=== PATIENT | male | born 1975 | race Caucasian/White ===

== ENCOUNTER 2018-04-13 22:47 | Emergency (ER) | payer OTHER ==
[~2018-04-13] VITALS: Ht 182.9 cm; Wt 77.1 kg
[~2018-04-13 22:47] MED LIST: AMLO5; ASPI81CH; ATOR10; Bactrim Ds Tab1 EACH PO; FLUO10; GABA100; GLIP5; Keflex500 MG PO; LISI5; METF500; METO50ER
[2018-04-13 23:35] LABS: Source, Urine Clean Catch
[2018-04-13 23:42] LABS: Bilirubin, Urine Neg (Neg); Blood, Urine 2+ (Neg); Glucose Qualitative, Urine 3+ (Neg); Ketones, Urine 1+ (Neg); Leukocyte Esterase, Urine 1+ (Neg); Nitrite, Urine Neg (Neg); Protein, Urine 4+ (Neg); Urobilinogen, Urine 1+ (Normal)
[2018-04-13 23:45] LABS: BASOPHILS ABSOLUTE AUTO 0.02 K/mm3 (0.00-0.23); BASOPHILS PERCENT AUTO 0 % (0-2); EOSINOPHILS PERCENT AUTO 1 % (0-6); Hematocrit 35.1 % (37.0-53.0); Hemoglobin 11.7 g/dL (13.5-17.5); IMMATURE GRAN ABSOLUTE AUTO 0.02 K/mm3 (0.00-0.10); IMMATURE GRAN PERCENT AUTO 0 % (0-1); LYMPHOCYTES PERCENT AUTO 24 % (21-46); MONOCYTES ABSOLUTE AUTO 0.54 K/mm3 (0.16-1.47); MONOCYTES PERCENT AUTO 6 % (4-13); Mean Corpuscular HGB 30.3 pg (26.0-34.0); Mean Corpuscular HGB Conc 33.3 g/dL (31.5-36.5); Mean Corpuscular Volume 91 fL (80-100); NEUTROPHILS ABSOLUTE AUTO 6.54 K/mm3 (1.96-9.15); NEUTROPHILS PERCENT AUTO 69 % (41-73); RDW Standard Deviation 40.1 fL (35.1-46.3); Red Blood Cell Count 3.86 M/mm3 (4.30-5.90); White Blood Cell Count 9.52 K/mm3 (4.00-11.30)
[2018-04-13] MEDS ORDERED: GLIP10 PO (23:47)
[2018-04-13] MEDS ORDERED: METF500C PO (23:47)
[2018-04-13] MEDS ORDERED: ZESTRIL40 MG PO (23:48)
[2018-04-13] MEDS ORDERED: AMLO5 PO (23:48)
[2018-04-13 23:49] LABS: Mean Platelet Volume 10.9 fL (9.1-12.4); Platelet Count 244 K/mm3 (150-400)
[2018-04-13] MEDS ORDERED: GABA600 PO (23:49)
[2018-04-13] MEDS ORDERED: ATOR40TA PO (23:49)
[2018-04-13] MEDS ORDERED: ASPI81CH PO (23:49)
[2018-04-13 23:51] LABS: Appearance, Urine Hazy (Clear); Color, Urine Yellow (P-Yellow)
[2018-04-13 23:52] LABS: Amorphous Light (0-Heavy); Bacteria Few /hpf; Mucus Mod (0-Heavy); Squamous Epithelial Cells Few /hpf (Few)
[2018-04-13] MEDS ORDERED: Prozac20 MG PO (23:54)
[2018-04-13 23:57] LABS: Alanine Aminotransfer (ALT/SGP 15 U/L (12-78); Albumin, Blood 3.1 g/dL (3.4-5.0); Alk Phos 48 U/L (50-136); Anion Gap 3 mmol/L (6-16); Aspartate Aminotrans (AST/SGOT 15 U/L (12-37); Bilirubin, Total 0.2 mg/dL (0.1-1.0); Blood Urea Nitrogen 23 mg/dL (8-24); Bun/Creatinine Ratio 18.7 (12.0-20.0); CO2, Blood 32 mmol/L (21-32); Calcium, Blood 8.1 mg/dL (8.5-10.1); Chloride, Blood 103 mmol/L (98-108); Creatinine, Blood 1.23 mg/dL (0.60-1.20); Globulin, Blood 3.2 g/dL (2.2-4.0); Glomerular Filtration Rate >60 (60-); Glucose, Blood 200 mg/dL (70-99); Potassium, Blood 4.1 mmol/L (3.5-5.5); Sodium, Blood 138 mmol/L (136-145); Total Protein, Blood 6.3 g/dL (6.4-8.2)
== END 2018-04-14 03:00 | disposition home or self-care (01) ==
LOC: ER 22:47
PROVIDERS: Emergency Medicine
DX: K59.00 Constipation, unspecified (principal); Z88.5 Allergy status to narcotic agent; Z79.84 Long term (current) use of oral hypoglycemic drugs; Z79.899 Other long term (current) drug therapy; Z79.82 Long term (current) use of aspirin; E11.40 Type 2 diabetes mellitus with diabetic neuropathy, unspecified; Z86.73 Personal history of transient ischemic attack (TIA), and cerebral infarction without residual deficits; F17.200 Nicotine dependence, unspecified, uncomplicated
CPT/HCPCS: 36415; 74176; 80053; 81001; 85025; 87086; 96374; 99284-25; J1885

== ENCOUNTER 2018-09-27 12:26 | Emergency (ER) | payer OTHER ==
[~2018-09-27] VITALS: Ht 182.9 cm; Wt 77.1 kg
[~2018-09-27 12:26] MED LIST changes: +AMLO5 PO; +ASPI81CH PO; +ATOR40TA PO; +GABA600 PO; +GLIP10 PO; +METF500C PO; +Prozac20 MG PO; +ZESTRIL40 MG PO
[2018-09-27 13:34] LABS: BASOPHILS ABSOLUTE AUTO 0.03 K/mm3 (0.00-0.23); BASOPHILS PERCENT AUTO 0 % (0-2); EOSINOPHILS ABSOLUTE AUTO 0.11 K/mm3 (0.00-0.68); EOSINOPHILS PERCENT AUTO 1 % (0-6); Hematocrit 37.6 % (37.0-53.0); Hemoglobin 12.6 g/dL (13.5-17.5); IMMATURE GRAN ABSOLUTE AUTO 0.02 K/mm3 (0.00-0.10); IMMATURE GRAN PERCENT AUTO 0 % (0-1); LYMPHOCYTES PERCENT AUTO 25 % (21-46); MONOCYTES ABSOLUTE AUTO 0.44 K/mm3 (0.16-1.47); MONOCYTES PERCENT AUTO 6 % (4-13); Mean Corpuscular HGB Conc 33.5 g/dL (31.5-36.5); Mean Corpuscular Volume 90 fL (80-100); Mean Platelet Volume 10.9 fL (9.1-12.4); NEUTROPHILS ABSOLUTE AUTO 5.21 K/mm3 (1.96-9.15); NEUTROPHILS PERCENT AUTO 68 % (41-73); Platelet Count 191 K/mm3 (150-400); RDW Standard Deviation 38.8 fL (35.1-46.3); White Blood Cell Count 7.71 K/mm3 (4.00-11.30)
[2018-09-27 14:08] LABS: Alanine Aminotransfer (ALT/SGP 22 U/L (12-78); Albumin, Blood 3.2 g/dL (3.4-5.0); Albumin/Globulin Ratio 0.9 (0.8-1.8); Alk Phos 57 U/L (50-136); Anion Gap 7 mmol/L (6-16); Aspartate Aminotrans (AST/SGOT 10 U/L (12-37); Bilirubin, Total 0.2 mg/dL (0.1-1.0); Blood Urea Nitrogen 21 mg/dL (8-24); Bun/Creatinine Ratio 16.4 (12.0-20.0); CO2, Blood 26 mmol/L (21-32); Calcium, Blood 9.1 mg/dL (8.5-10.1); Chloride, Blood 106 mmol/L (98-108); Creatinine, Blood 1.28 mg/dL (0.60-1.20); Globulin, Blood 3.7 g/dL (2.2-4.0); Glomerular Filtration Rate >60 (60-); Glucose, Blood 223 mg/dL (70-99); Potassium, Blood 4.9 mmol/L (3.5-5.5); Sodium, Blood 139 mmol/L (136-145); Total Protein, Blood 6.9 g/dL (6.4-8.2)
[2018-09-27] MEDS ORDERED: BUPR75 PO (15:12)
[2018-09-27] MEDS ORDERED: MECL12.5 PO (18:29)
== END 2018-09-27 18:40 | disposition home or self-care (01) ==
LOC: ER 12:26
PROVIDERS: Physician Assistant
DX: I69.998 Other sequelae following unspecified cerebrovascular disease (principal); R42 Dizziness and giddiness; E11.9 Type 2 diabetes mellitus without complications; F17.200 Nicotine dependence, unspecified, uncomplicated; Z79.899 Other long term (current) drug therapy; Z79.82 Long term (current) use of aspirin
CPT/HCPCS: 36415; 70450; 70496; 70498; 80053; 85025; 93005; 93010; 96360-59; 96361; 99284-25; J7030; Q9967

== ENCOUNTER 2018-12-04 21:21 | Emergency (ER) | payer OTHER ==
[~2018-12-04] VITALS: Ht 182.9 cm; Wt 75.8 kg
[~2018-12-04 21:21] MED LIST changes: +BUPR75 PO; +MECL12.5 PO
[2018-12-04 22:02] LABS: BASOPHILS ABSOLUTE AUTO 0.02 K/mm3 (0.00-0.23); BASOPHILS PERCENT AUTO 0 % (0-2); EOSINOPHILS ABSOLUTE AUTO 0.07 K/mm3 (0.00-0.68); EOSINOPHILS PERCENT AUTO 1 % (0-6); Hematocrit 36.3 % (37.0-53.0); Hemoglobin 11.9 g/dL (13.5-17.5); IMMATURE GRAN ABSOLUTE AUTO 0.02 K/mm3 (0.00-0.10); IMMATURE GRAN PERCENT AUTO 0 % (0-1); LYMPHOCYTES ABSOLUTE AUTO 1.45 K/mm3 (0.84-5.20); LYMPHOCYTES PERCENT AUTO 16 % (21-46); MONOCYTES ABSOLUTE AUTO 0.29 K/mm3 (0.16-1.47); MONOCYTES PERCENT AUTO 3 % (4-13); Mean Corpuscular HGB 29.6 pg (26.0-34.0); Mean Corpuscular HGB Conc 32.8 g/dL (31.5-36.5); Mean Corpuscular Volume 90 fL (80-100); Mean Platelet Volume 11.2 fL (9.1-12.4); NEUTROPHILS ABSOLUTE AUTO 7.23 K/mm3 (1.96-9.15); NEUTROPHILS PERCENT AUTO 80 % (41-73); Platelet Count 205 K/mm3 (150-400); RDW Coefficient Variation 12.2 % (11.7-14.2); RDW Standard Deviation 40.2 fL (35.1-46.3); Red Blood Cell Count 4.02 M/mm3 (4.30-5.90); White Blood Cell Count 9.08 K/mm3 (4.00-11.30)
[2018-12-04 22:20] LABS: Alanine Aminotransfer (ALT/SGP 17 U/L (12-78); Alk Phos 53 U/L (50-136); Anion Gap 7 mmol/L (6-16); Aspartate Aminotrans (AST/SGOT 15 U/L (12-37); Bilirubin, Total 0.3 mg/dL (0.1-1.0); Blood Urea Nitrogen 34 mg/dL (8-24); Bun/Creatinine Ratio 25.8 (12.0-20.0); CO2, Blood 29 mmol/L (21-32); Calcium, Blood 8.7 mg/dL (8.5-10.1); Chloride, Blood 103 mmol/L (98-108); Creatinine, Blood 1.32 mg/dL (0.60-1.20); Globulin, Blood 3.1 g/dL (2.2-4.0); Glomerular Filtration Rate >60 (60-); Glucose, Blood 238 mg/dL (70-99); Potassium, Blood 4.5 mmol/L (3.5-5.5); Sodium, Blood 139 mmol/L (136-145); Total Protein, Blood 6.1 g/dL (6.4-8.2)
== END 2018-12-04 23:46 | disposition home or self-care (01) ==
LOC: ER 21:21
PROVIDERS: Emergency Medicine
DX: I10 Essential (primary) hypertension (principal); E11.9 Type 2 diabetes mellitus without complications; F17.200 Nicotine dependence, unspecified, uncomplicated; Z88.5 Allergy status to narcotic agent; Z79.899 Other long term (current) drug therapy
CPT/HCPCS: 80053; 82947; 85025; 93005; 93010; 96361; 96374; 96375; 99284-25; J0780; J1100; J1200; J1885; J7030

== ENCOUNTER 2020-04-27 11:06 | Emergency (ER) | payer MEDICARE, OTHER ==
[~2020-04-27] VITALS: Ht 182.9 cm; Wt 90.7 kg
[2020-04-27 11:47] LABS: BASOPHILS ABSOLUTE AUTO 0.07 K/mm3 (0.00-0.23); BASOPHILS PERCENT AUTO 1 % (0-2); EOSINOPHILS ABSOLUTE AUTO 0.19 K/mm3 (0.00-0.68); EOSINOPHILS PERCENT AUTO 2 % (0-6); Hematocrit 37.4 % (37.0-53.0); Hemoglobin 12.2 g/dL (13.5-17.5); IMMATURE GRAN ABSOLUTE AUTO 0.04 K/mm3 (0.00-0.10); IMMATURE GRAN PERCENT AUTO 0 % (0-1); LYMPHOCYTES ABSOLUTE AUTO 2.12 K/mm3 (0.84-5.20); LYMPHOCYTES PERCENT AUTO 22 % (21-46); MONOCYTES ABSOLUTE AUTO 0.47 K/mm3 (0.16-1.47); MONOCYTES PERCENT AUTO 5 % (4-13); Mean Corpuscular HGB Conc 32.6 g/dL (31.5-36.5); Mean Corpuscular Volume 89 fL (80-100); Mean Platelet Volume 11.3 fL (9.1-12.4); NEUTROPHILS ABSOLUTE AUTO 6.88 K/mm3 (1.96-9.15); NEUTROPHILS PERCENT AUTO 71 % (41-73); Platelet Count 275 K/mm3 (150-400); RDW Coefficient Variation 12.1 % (11.7-14.2); RDW Standard Deviation 39.4 fL (35.1-46.3); White Blood Cell Count 9.77 K/mm3 (4.00-11.30)
[2020-04-27 12:02] LABS: Albumin, Blood 2.9 g/dL (3.4-5.0); Albumin/Globulin Ratio 0.9 (0.8-1.8); Bilirubin, Total 0.3 mg/dL (0.1-1.0); Bun/Creatinine Ratio 13.2 (12.0-20.0); Calcium, Blood 8.9 mg/dL (8.5-10.1); Creatinine, Blood 1.59 mg/dL (0.60-1.20); Globulin, Blood 3.4 g/dL (2.2-4.0); International Normalized Ratio 0.95; Potassium, Blood 4.4 mmol/L (3.5-5.5); Prothrombin Time Results 10.2 Sec (9.7-11.5); Total Protein, Blood 6.3 g/dL (6.4-8.2)
[2020-04-27] MEDS ORDERED: BASAGLAR SC (12:19)
[2020-04-27] MEDS ORDERED: DULO60 PO (12:22)
== END 2020-04-27 13:44 | disposition home or self-care (01) ==
LOC: ER 11:06
PROVIDERS: Physician Assistant
DX: R20.2 Paresthesia of skin (principal); R20.0 Anesthesia of skin; I10 Essential (primary) hypertension; E11.40 Type 2 diabetes mellitus with diabetic neuropathy, unspecified; F17.200 Nicotine dependence, unspecified, uncomplicated; Z86.73 Personal history of transient ischemic attack (TIA), and cerebral infarction without residual deficits; Z88.5 Allergy status to narcotic agent; Z79.84 Long term (current) use of oral hypoglycemic drugs; Z79.82 Long term (current) use of aspirin; Z79.899 Other long term (current) drug therapy
CPT/HCPCS: 36415; 70450; 80053; 82947; 85025; 85610; 93005; 93010; 99284-25

== ENCOUNTER 2020-11-25 12:42 | Inpatient (IN) | payer MEDICARE, OTHER ==
[~2020-11-25] VITALS: Ht 182.9 cm; Wt 69.7 kg
[~2020-11-25 12:42] MED LIST changes: -ATOR20 PO; -Amlodipine Besy10 MG PO; -BASAGLAR K100 UNIT/8 SC; -BISA10S PR; -CLON.3 PO; -COLACE100 MG PO; -DULOXETINE HCL60 M1 PO; -Gabapentin600 MG PO; -Glucotrol10 MG PO; -LIPITOR80 MG PO; -METF500 PO; -METFORMIN HCL1000 M6 PO; -METO25ER PO; -NICO21TP TOP; -ONDA4 PO; -PLAVIX75 MG PO; -PROMETHAZINE12.5 M1 PO; -PROZAC40 MG PO; -Prozac40 MG PO; -SENN187 PO; -TAMSULOSIN HCL0.4 M1 PO; -THERA-D2000 UNIT PO
[2020-11-25 13:39] LABS: BASOPHILS ABSOLUTE AUTO 0.06 K/mm3 (0.00-0.23); BASOPHILS PERCENT AUTO 1 % (0-2); EOSINOPHILS ABSOLUTE AUTO 0.05 K/mm3 (0.00-0.68); EOSINOPHILS PERCENT AUTO 0 % (0-6); Hematocrit 34.6 % (37.0-53.0); Hemoglobin 11.3 g/dL (13.5-17.5); IMMATURE GRAN ABSOLUTE AUTO 0.11 K/mm3 (0.00-0.10); IMMATURE GRAN PERCENT AUTO 1 % (0-1); LYMPHOCYTES ABSOLUTE AUTO 1.58 K/mm3 (0.84-5.20); LYMPHOCYTES PERCENT AUTO 13 % (21-46); MONOCYTES ABSOLUTE AUTO 0.58 K/mm3 (0.16-1.47); MONOCYTES PERCENT AUTO 5 % (4-13); Mean Corpuscular HGB 30.2 pg (26.0-34.0); Mean Corpuscular HGB Conc 32.7 g/dL (31.5-36.5); Mean Corpuscular Volume 93 fL (80-100); Mean Platelet Volume 11.2 fL (9.1-12.4); NEUTROPHILS ABSOLUTE AUTO 10.18 K/mm3 (1.96-9.15); NEUTROPHILS PERCENT AUTO 81 % (41-73); Platelet Count 187 K/mm3 (150-400); RDW Coefficient Variation 12.4 % (11.7-14.2); Red Blood Cell Count 3.74 M/mm3 (4.30-5.90); White Blood Cell Count 12.56 K/mm3 (4.00-11.30)
[2020-11-25 13:53] LABS: Albumin, Blood 3.3 g/dL (3.4-5.0); Albumin/Globulin Ratio 0.9 (0.8-1.8); Bilirubin, Total 0.4 mg/dL (0.1-1.0); Bun/Creatinine Ratio 12.5 (12.0-20.0); Creatinine, Blood 5.28 mg/dL (0.60-1.20); Globulin, Blood 3.6 g/dL (2.2-4.0); Potassium, Blood 5.6 mmol/L (3.5-5.5); Total Protein, Blood 6.9 g/dL (6.4-8.2)
[2020-11-25] MEDS ORDERED: PROZAC40 MG PO (13:57)
[2020-11-25] MEDS ORDERED: BASAGLAR K100 UNIT/8 SC (13:57)
[2020-11-25] MEDS ORDERED: Amlodipine Besy10 MG PO (13:57)
[2020-11-25] MEDS ORDERED: Glucotrol10 MG PO (13:58)
[2020-11-25] MEDS ORDERED: Gabapentin600 MG PO (13:58)
[2020-11-25] MEDS ORDERED: ZESTRIL40 MG PO (13:58)
[2020-11-25] MEDS ORDERED: ATOR20 PO (13:58)
[2020-11-25] MEDS ORDERED: METF500 PO (13:58)
[2020-11-25] MEDS ORDERED: METO25ER PO (13:59)
[2020-11-25] MEDS ORDERED: ONDA4 PO (13:59)
[2020-11-25 14:19] LABS: Magnesium, Blood 1.6 mg/dL (1.6-2.4); Phosphorus, Blood 5.5 mg/dL (2.5-4.9)
[2020-11-25 14:59] LABS: Source, Urine Catheter
[2020-11-25 15:01] LABS: Appearance, Urine Hazy (Clear); Bilirubin, Urine Neg (Neg); Blood, Urine 3+ (Neg); Color, Urine Yellow (P-Yellow); Glucose Qualitative, Urine 3+ (Neg); Ketones, Urine 1+ (Neg); Leukocyte Esterase, Urine 3+ (Neg); Nitrite, Urine Neg (Neg); Protein, Urine 3+ (Neg); Specific Gravity, Urine 1.015 (1.003-1.022); Urobilinogen, Urine NORM (Normal)
[2020-11-25 15:16] LABS: Bacteria Many /hpf; Red Blood Cells, Urine 0-2 /hpf (0-2); Squamous Epithelial Cells Not Seen /hpf (Few); White Blood Cells, Urine TNTC /hpf (0-5)
[2020-11-25] MEDS ORDERED: DULOXETINE HCL60 M1 PO (16:12)
[2020-11-25] MEDS ORDERED: LIPITOR80 MG PO (16:13)
[2020-11-25] MEDS ORDERED: TAMSULOSIN HCL0.4 M1 PO (16:13)
[2020-11-25] MEDS ORDERED: METFORMIN HCL1000 M6 PO (16:13)
[2020-11-25] MEDS ORDERED: PLAVIX75 MG PO (16:17)
[2020-11-25] MEDS ORDERED: THERA-D2000 UNIT PO (16:20)
[2020-11-25] MEDS ORDERED: CLON.3 PO (16:27)
[2020-11-25] MEDS ORDERED: PROMETHAZINE12.5 M1 PO (16:28)
--- NOTE | 2020-11-25 19:27 | NUR ---
SHIFT SUMMARY, ADMISSION PT WAS ADMITTED TO PCU AT APPROXIMATELY 1810 AND ARRIVED VIA STRETCHER. PT WAS ABLE TO COMPLETE HISTORY AND SCREENING ALONG WITH HIS /CAREGIVER RACHELL. PT DENIES ABD PAIN AT THIS TIME DESPITE NOT HAVING A BM FOR SEVERAL WEEKS. PT WAS VISITED BY DR. GREEN WHO REQUESTED A STAT CPK AND RENAL PANEL AND A PHONE CALL WITH THE RESULTS. PT IS INCONTINENT AND HAS A SIGNIFICANT HISTORY OF STROKES, DM2, HTN AND NEUROPATHY. PT IS ON RA AND IS ALERT AND ORIENTED. PT RESTING AT THIS TIME. HISTORY AND SCREENING COMPLETE; ADMISSION ASSESSMENT IS TO BE COMPLETED BY BOOGIE MIGUEL, ON NOC SHIFT
[2020-11-25 19:42] LABS: Anion Gap 9 mmol/L (6-16); Blood Urea Nitrogen 63 mg/dL (8-24); Bun/Creatinine Ratio 12.2 (12.0-20.0); CO2, Blood 18 mmol/L (21-32); Calcium, Blood 8.2 mg/dL (8.5-10.1); Chloride, Blood 112 mmol/L (98-108); Creatinine, Blood 5.16 mg/dL (0.60-1.20); Glomerular Filtration Rate 13 (60-); Glucose, Blood 128 mg/dL (70-99); Phosphorus, Blood 5.1 mg/dL (2.5-4.9); Potassium, Blood 4.9 mmol/L (3.5-5.5); Sodium, Blood 139 mmol/L (136-145)
[2020-11-25 19:43] LABS: CPK Creatine Kinase 34 U/L (39-308)
--- NOTE | 2020-11-25 20:27 | NUR ---
2024 DR GREEN CALLED ORDERED AND INFORMED OF LAB RESULTS. DR GREEN ORDERED TO START PT ON IV FLUIDS.
--- NOTE | 2020-11-26 04:33 | NUR ---
SUMMARY PT C/O OF PENIS DISCOMFORT. PT HAD BEEN STRIGHT CATHED IN ER. PT HAD NOTED BLOOD DURING ATTENDS CHANGE. PROVIDER GUME CALLED AND ORDERED OT FENTANYL AND UROJET. PT PAIN RESOLVED. PT ALSO NOTED PER TELE TO HAVE A RATE IN 130'S. PROVIDER GUME CALLED AND SHE ORDERED IV LOPRESSOR FOR RATE CONTROL. PT RATE CURRENTLY IN LOW 100'S, WCTM. PT C/O OF CONSTIPATION AND MOM WAS GIVEN. PT EVENTUALLY HAD SOME NOTED BM'S. DR ARZATE CALLED AND A FLEET ENEMA WAS ORDERED IF PT'S CONSTIPATION GETS WORSE. PT CURRENTLY RESTING. PT HAS NOT SLEPT MUCH DURING SHIFT. CALL LIGHT IN REACH.
[2020-11-26 04:37] LABS: Bun/Creatinine Ratio 12.5 (12.0-20.0); Calcium, Blood 8.4 mg/dL (8.5-10.1); Creatinine, Blood 5.03 mg/dL (0.60-1.20); Potassium, Blood 5.2 mmol/L (3.5-5.5)
--- NOTE | 2020-11-26 06:42 | NUR ---
0640 PT PASSING STOOL EASILY THIS AM. DENIES ANY PAIN/ DISCOMFORT.
[2020-11-26 11:56] LABS: Source, Urine Catheter
[2020-11-26 12:10] LABS: Appearance, Urine Hazy (Clear); Bilirubin, Urine Neg (Neg); Blood, Urine 5+ (Neg); Color, Urine Yellow (P-Yellow); Glucose Qualitative, Urine 3+ (Neg); Ketones, Urine 2+ (Neg); Leukocyte Esterase, Urine 3+ (Neg); Nitrite, Urine Neg (Neg); Protein, Urine 3+ (Neg); Urobilinogen, Urine NORM (Normal); pH, Urine 6.5 (5.0-8.0)
[2020-11-26 12:22] LABS: White Blood Cells, Urine TNTC /hpf (0-5)
[2020-11-26 12:25] LABS: Red Blood Cells, Urine 25-50 /hpf (0-2); Squamous Epithelial Cells Not Seen /hpf (Few)
[2020-11-26 12:26] LABS: Bacteria Many /hpf
--- NOTE | 2020-11-26 17:43 | NUR ---
PT ARRIVED TO THE ROOM AT 1735. PT IS ALERT AND WAS ASSISTED TO SIT UP FOR DINNER. PT DECLINED NEED FOR ASSISTANCE WITH EATING. PT REPORTS HE DRINKS THIN LIQUIDS AT HOME. WILL CONTINUE TO MONITOR.
--- NOTE | 2020-11-26 19:44 | NUR ---
SHIFT SUMMARY/SWALLOWING CONCERNS PT ARRIVED TO THE ROOM AT APPROXIMATELY 1730 FROM PCU. PT WAS ASSISTED TO SIT UP FOR DINNER BUT APPEARED TO CHOKE WHILE EATING REPORTED BY INOCENTE BEGUM. TRAY WAS TAKEN AND DR. FERRIS WAS NOTIFIED. PT EDUCATED THAT HE SHOULD BE GETTING NECTAR THICK LIQUIDS AND MECHANICAL SOFT DIET. PT REPORTED THAT HE DOES NOT FOLLOW THOSE RECOMMENDATIONS AT HOME. PT WAS EDUCATED ABOUT THE RISKS OF ASPIRATION AND POSSIBLE AIRWAY OBSTRUCTION IF HE CONTINUES TO EAT REGULAR TEXTURE AND DRINK THIN LIQUIDS. PT AND HIS S/O REPORTED UNDERSTANDING THE RISKS. THEY AGREED TO A BITE SIZE DIET, THIN LIQUIDS AND PILLS WITH APPLESAUCE. PLAN TO PLACE PALLIATIVE CARE CONSULT FOR SUPPORT AND EDUCATION. NO OTHER CHANGES TO REPORT SINCE PT ARRIVED TO THE ROOM FROM PCU. REPORT GIVEN TO LARRY HYMAN.
--- NOTE | 2020-11-27 04:02 | NUR ---
SHIFT SUMMARY PT ALERT AND ORIENTED. VSS. TELE ON SINUS @ 61HR PER NOVEMBER, MANAGER MAC. PT SLEPT T/O THE NIGHT. HE REFUSED TO TAKE GABAPENTIN STATING THAT HE HAD STOPPED TAKEN THAT MEDICATION BEFORE. I WILL ADDRESS THIS TO AM NURSE TO REPORT TO . PT ALSO REFUSED TO FOLLOW THE RECOMENDED DIET ORDER. THE CAREGIVER/ S/O STATED THAT HE TAKES BITE SIZE AND EATS SLOW AT BASELINE. PT ALSO REPORTS L ARM SWELLING R/T TO IV INFILTRATION. IV ON LEFT AC WAS DC'D. WILL PLACE A NEW IV. URINE HAD SEDIMENTS AT THE BEGINNING OF SHIFT, CATHETER OUTPUT AT 1100ML, WITH CLOUDY YELLOW URINE. ENC Q2 TURNING. PT IS ABLE TO TURN HIMSELF IN BED. HE HAD 1 BM LAST NIGHT AND REFUSE TO TAKE STOOL SOFTNER. CALL LIGHT WITHIN REACH. WILL PROVIDE REPORT TO AM NURSE.
[2020-11-27 04:54] LABS: BASOPHILS ABSOLUTE AUTO 0.05 K/mm3 (0.00-0.23); BASOPHILS PERCENT AUTO 1 % (0-2); EOSINOPHILS ABSOLUTE AUTO 0.15 K/mm3 (0.00-0.68); EOSINOPHILS PERCENT AUTO 2 % (0-6); Hematocrit 30.1 % (37.0-53.0); Hemoglobin 9.7 g/dL (13.5-17.5); IMMATURE GRAN ABSOLUTE AUTO 0.08 K/mm3 (0.00-0.10); IMMATURE GRAN PERCENT AUTO 1 % (0-1); LYMPHOCYTES ABSOLUTE AUTO 2.11 K/mm3 (0.84-5.20); LYMPHOCYTES PERCENT AUTO 23 % (21-46); MONOCYTES ABSOLUTE AUTO 0.69 K/mm3 (0.16-1.47); MONOCYTES PERCENT AUTO 8 % (4-13); Mean Corpuscular HGB 29.3 pg (26.0-34.0); Mean Corpuscular HGB Conc 32.2 g/dL (31.5-36.5); Mean Corpuscular Volume 91 fL (80-100); Mean Platelet Volume 10.8 fL (9.1-12.4); NEUTROPHILS ABSOLUTE AUTO 6.07 K/mm3 (1.96-9.15); NEUTROPHILS PERCENT AUTO 66 % (41-73); Platelet Count 195 K/mm3 (150-400); RDW Coefficient Variation 12.4 % (11.7-14.2); RDW Standard Deviation 41.1 fL (35.1-46.3); Red Blood Cell Count 3.31 M/mm3 (4.30-5.90); White Blood Cell Count 9.15 K/mm3 (4.00-11.30)
[2020-11-27 05:34] LABS: Albumin, Blood 2.8 g/dL (3.4-5.0); Anion Gap 4 mmol/L (6-16); Blood Urea Nitrogen 43 mg/dL (8-24); Bun/Creatinine Ratio 10.4 (12.0-20.0); CO2, Blood 25 mmol/L (21-32); Calcium, Blood 8.6 mg/dL (8.5-10.1); Chloride, Blood 111 mmol/L (98-108); Creatinine, Blood 4.12 mg/dL (0.60-1.20); Glomerular Filtration Rate 17 (60-); Glucose, Blood 210 mg/dL (70-99); Phosphorus, Blood 3.9 mg/dL (2.5-4.9); Potassium, Blood 4.6 mmol/L (3.5-5.5); Sodium, Blood 140 mmol/L (136-145)
--- NOTE | 2020-11-27 18:04 | NUR ---
SHIFT SUMMARY PT A&OX4/SLURRED SPEECH/SLOW TO RESPOND, VSS, TELE SINUS & 76 BPM. CBG MED SS/COVERAGE REQUIRED. FAJARDO PATENT & DRAINING YELLOW URINE, STAT LOCK ON/OFF FLOOR; BMS +. IVF @ 125 MLS/HR, ABX ORDERED PER EMAR. REPOSITIONS SELF/TRANSFERS SELF TO OWN WC. TROY PO; MEDS WITH APPLESAUCE. AT BEDSIDE. WILL REPORT TO ONCOMING NOC RN.
--- NOTE | 2020-11-28 06:35 | NUR ---
SHIFT SUMMARY:SEPSIS,ACUTE ON CHRONIC RENAL FAILURE DM2, TELE,POST CVA PT ON BEDREST A&OX3, CASA IS GARBLED SLOW LOGICAL, DENIES PAIN AT THIS TIME,ABLE TO REPOSITSON SELF, SLEPT INTERMITTENTLY T/O NIGHT, FAJARDO IN PLACE DRAINING WELL, APPEARS TO BE RESTING CALL LIGHT WITHIN REACH.
[2020-11-28 07:26] LABS: BASOPHILS ABSOLUTE AUTO 0.06 K/mm3 (0.00-0.23); BASOPHILS PERCENT AUTO 1 % (0-2); EOSINOPHILS ABSOLUTE AUTO 0.17 K/mm3 (0.00-0.68); EOSINOPHILS PERCENT AUTO 2 % (0-6); Hematocrit 32.2 % (37.0-53.0); Hemoglobin 10.4 g/dL (13.5-17.5); IMMATURE GRAN ABSOLUTE AUTO 0.13 K/mm3 (0.00-0.10); IMMATURE GRAN PERCENT AUTO 2 % (0-1); LYMPHOCYTES ABSOLUTE AUTO 2.04 K/mm3 (0.84-5.20); LYMPHOCYTES PERCENT AUTO 26 % (21-46); MONOCYTES ABSOLUTE AUTO 0.48 K/mm3 (0.16-1.47); MONOCYTES PERCENT AUTO 6 % (4-13); Mean Corpuscular HGB 29.2 pg (26.0-34.0); Mean Corpuscular HGB Conc 32.3 g/dL (31.5-36.5); Mean Corpuscular Volume 90 fL (80-100); Mean Platelet Volume 10.8 fL (9.1-12.4); NEUTROPHILS ABSOLUTE AUTO 4.96 K/mm3 (1.96-9.15); NEUTROPHILS PERCENT AUTO 63 % (41-73); Platelet Count 218 K/mm3 (150-400); RDW Coefficient Variation 12.3 % (11.7-14.2); RDW Standard Deviation 40.8 fL (35.1-46.3); Red Blood Cell Count 3.56 M/mm3 (4.30-5.90); White Blood Cell Count 7.84 K/mm3 (4.00-11.30)
[2020-11-28 07:55] LABS: Albumin, Blood 2.9 g/dL (3.4-5.0); Anion Gap 6 mmol/L (6-16); Blood Urea Nitrogen 27 mg/dL (8-24); Bun/Creatinine Ratio 10.3 (12.0-20.0); CO2, Blood 22 mmol/L (21-32); Calcium, Blood 8.1 mg/dL (8.5-10.1); Chloride, Blood 112 mmol/L (98-108); Creatinine, Blood 2.63 mg/dL (0.60-1.20); Glomerular Filtration Rate 28 (60-); Glucose, Blood 204 mg/dL (70-99); Phosphorus, Blood 2.9 mg/dL (2.5-4.9); Potassium, Blood 4.4 mmol/L (3.5-5.5); Sodium, Blood 140 mmol/L (136-145)
[2020-11-28] MEDS ORDERED: BISA10S PR (11:17)
[2020-11-28] MEDS ORDERED: COLACE100 MG PO (11:18)
[2020-11-28] MEDS ORDERED: NICO21TP TOP (11:19)
[2020-11-28] MEDS ORDERED: SENN187 PO (11:19)
[2020-11-28] MEDS ORDERED: Prozac40 MG PO (11:19)
--- NOTE | 2020-11-28 14:40 | NUR ---
DISCHARGE SUMMARY PT A&OX4, VSS, TROY PO, DENIES PAIN. LEFT FLOOR WITH S.O. TO GO HOME WITH ALL PERSONAL POSSESSIONS INCLUDING DC PACKET AND SCRIPT FOR LAB DRAW. DC INSTRUCTIONS PROVIDED. PT AND S.O. REP UNDERSTANDING HOW TO EMPTY FAJARDO BAG AND MEASURE TO TAKE INFO TO DR GREEN AT FOLLOW UP, HOME HEALTH WILL FOLLOW PT, S.O. RECEIVED INFORMATION ABOUT OBTAINING A NEW PCP FROM [facility] PRIOR TO DC, PT ENCOURAGED TO INTAKE 8 GLASSES OF WATER DAILY. IV DC'D.
== END 2020-11-28 12:46 | disposition home or self-care (01) | DRG 871 ==
LOC: ER 12:42 → SURS 16:06 → PCU 16:06 → SURS 11-26 17:37
PROVIDERS: Emergency Medicine; Internal Medicine; Physician Assistant; ADMIT Internal Medicine
DX: A41.9 Sepsis, unspecified organism (principal); N17.0 Acute kidney failure with tubular necrosis; I12.9 Hypertensive chronic kidney disease with stage 1 through stage 4 chronic kidney disease, or unspecified chronic kidney disease; E87.5 Hyperkalemia; E11.22 Type 2 diabetes mellitus with diabetic chronic kidney disease; Z86.73 Personal history of transient ischemic attack (TIA), and cerebral infarction without residual deficits; K59.00 Constipation, unspecified; R33.9 Retention of urine, unspecified; R47.81 Slurred speech; E11.40 Type 2 diabetes mellitus with diabetic neuropathy, unspecified; Z98.890 Other specified postprocedural states; Z88.5 Allergy status to narcotic agent; Z79.899 Other long term (current) drug therapy; Z79.84 Long term (current) use of oral hypoglycemic drugs; N18.30 Chronic kidney disease, stage 3 unspecified; F17.210 Nicotine dependence, cigarettes, uncomplicated
CPT/HCPCS: 36415; 51701; 51702; 71045; 74176; 76770; 80048; 80053; 80069; 81001; 82550; 82947; 83605; 83690; 83735; 84100; 85025; 87040; 87086; 93005; 93010; 96365-59; 97161; 97530; 99285-25; A9270; A9270-GY; J0360; J0696; J1644; J1815; J2405; J3010; J7030

== ENCOUNTER → 2020-11-25 | Outpatient (CLI) | payer MEDICARE, OTHER ==
[~2020-11-25] MED LIST changes: +ATOR20 PO; +Amlodipine Besy10 MG PO; +BASAGLAR K100 UNIT/8 SC; +BASAGLAR SC; +BISA10S PR; +CLON.3 PO; +COLACE100 MG PO; +DULO60 PO; +DULOXETINE HCL60 M1 PO; +Gabapentin600 MG PO; +Glucotrol10 MG PO; +LIPITOR80 MG PO; +MECL25 PO; +METF500 PO; +METFORMIN HCL1000 M6 PO; +METO25ER PO; +NICO21TP TOP; +ONDA4 PO; +ONDA4ODT MM; +PLAVIX75 MG PO; +PROM25 PO; +PROMETHAZINE12.5 M1 PO; +PROZAC40 MG PO; +Prozac40 MG PO; +SENN187 PO; +TAMSULOSIN HCL0.4 M1 PO; +THERA-D2000 UNIT PO
[2020-11-25 11:49] LABS: BASOPHILS ABSOLUTE AUTO 0.08 K/mm3 (0.00-0.23); BASOPHILS PERCENT AUTO 1 % (0-2); EOSINOPHILS ABSOLUTE AUTO 0.06 K/mm3 (0.00-0.68); EOSINOPHILS PERCENT AUTO 1 % (0-6); Hematocrit 40.8 % (37.0-53.0); IMMATURE GRAN PERCENT AUTO 1 % (0-1); LYMPHOCYTES ABSOLUTE AUTO 1.79 K/mm3 (0.84-5.20); LYMPHOCYTES PERCENT AUTO 14 % (21-46); MONOCYTES ABSOLUTE AUTO 0.56 K/mm3 (0.16-1.47); MONOCYTES PERCENT AUTO 4 % (4-13); Mean Corpuscular HGB 29.2 pg (26.0-34.0); Mean Corpuscular HGB Conc 31.9 g/dL (31.5-36.5); Mean Corpuscular Volume 92 fL (80-100); Mean Platelet Volume 10.7 fL (9.1-12.4); NEUTROPHILS ABSOLUTE AUTO 10.49 K/mm3 (1.96-9.15); NEUTROPHILS PERCENT AUTO 80 % (41-73); Platelet Count 176 K/mm3 (150-400); RDW Coefficient Variation 12.7 % (11.7-14.2); RDW Standard Deviation 41.9 fL (35.1-46.3); Red Blood Cell Count 4.45 M/mm3 (4.30-5.90); White Blood Cell Count 13.08 K/mm3 (4.00-11.30)
[2020-11-25 12:11] LABS: Alanine Aminotransfer (ALT/SGP 24 U/L (12-78); Albumin/Globulin Ratio 0.9 (0.8-1.8); Alk Phos 89 U/L (40-126); Anion Gap 18 mmol/L (6-16); Aspartate Aminotrans (AST/SGOT 15 U/L (12-37); Bilirubin, Total 0.4 mg/dL (0.1-1.0); Blood Urea Nitrogen 73 mg/dL (8-24); Bun/Creatinine Ratio 12.8 (12.0-20.0); CO2, Blood 19 mmol/L (21-32); Calcium, Blood 10.2 mg/dL (8.5-10.1); Chloride, Blood 98 mmol/L (98-108); Globulin, Blood 4.4 g/dL (2.2-4.0); Glomerular Filtration Rate 11 (60-); Glucose, Blood 204 mg/dL (70-99); Sodium, Blood 135 mmol/L (136-145); Thyroid Stimulating Hormone 1.181 uIU/mL (0.360-4.800); Total Protein, Blood 8.4 g/dL (6.4-8.2)
[2020-11-25 12:15] LABS: Troponin I <0.017 ng/mL (0.000-0.040)
[2020-11-25 12:16] LABS: Potassium, Blood 6.1 mmol/L (3.5-5.5)
== END | disposition home or self-care (01) ==
LOC: LAB SHORT 11:42
PROVIDERS: Physician Assistant
DX: R00.1 Bradycardia, unspecified (principal); R11.2 Nausea with vomiting, unspecified; R53.83 Other fatigue; R10.9 Unspecified abdominal pain
CPT/HCPCS: 80053; 83690; 84443; 84484; 85025

== ENCOUNTER → 2020-12-01 | Outpatient (CLI) | payer MEDICARE, OTHER | END | disposition home or self-care (01) | LOC: LAB HH 15:46 → LAB SHORT 15:46 | DX: N17.9 Acute kidney failure, unspecified (principal); E11.22 Type 2 diabetes mellitus with diabetic chronic kidney disease; I12.9 Hypertensive chronic kidney disease with stage 1 through stage 4 chronic kidney disease, or unspecified chronic kidney disease; N18.9 Chronic kidney disease, unspecified | CPT/HCPCS: 80069; 83970 ==

== ENCOUNTER → 2020-12-25 | Outpatient (CLI) | payer MEDICARE, OTHER ==
[~2020-12-25] MED LIST changes: +ATOR20 PO; +Amlodipine Besy10 MG PO; +BASAGLAR K100 UNIT/8 SC; +BISA10S PR; +CLON.3 PO; +COLACE100 MG PO; +DULOXETINE HCL60 M1 PO; +Gabapentin600 MG PO; +Glucotrol10 MG PO; +LIPITOR80 MG PO; +METF500 PO; +METFORMIN HCL1000 M6 PO; +METO25ER PO; +NICO21TP TOP; +ONDA4 PO; +PLAVIX75 MG PO; +PROMETHAZINE12.5 M1 PO; +PROZAC40 MG PO; +Prozac40 MG PO; +SENN187 PO; +SULFAMETHOXAZO1 EAC1 PO; +TAMSULOSIN HCL0.4 M1 PO; +THERA-D2000 UNIT PO
[2020-12-25 13:05] LABS: Source, Urine Clean Catch
[2020-12-25 13:15] LABS: Bacteria Many /hpf; Squamous Epithelial Cells Rare /hpf (Few)
[2020-12-25 13:16] LABS: White Blood Cells, Urine TNTC /hpf (0-5)
[2020-12-25 13:21] LABS: Albumin, Blood 3.2 g/dL (3.4-5.0); Albumin/Globulin Ratio 0.9 (0.8-1.8); Bilirubin, Total 0.2 mg/dL (0.1-1.0); Calcium, Blood 8.7 mg/dL (8.5-10.1); Creatinine, Blood 1.95 mg/dL (0.60-1.20); Globulin, Blood 3.6 g/dL (2.2-4.0); Total Protein, Blood 6.8 g/dL (6.4-8.2)
== END | disposition home or self-care (01) ==
LOC: LAB SHORT 13:03 → LAB EV 13:03
PROVIDERS: Physician Assistant Medical
DX: E86.0 Dehydration (principal); R31.9 Hematuria, unspecified
CPT/HCPCS: 80053; 81015

== ENCOUNTER → 2020-12-27 | Outpatient (CLI) | payer MEDICARE, OTHER ==
[2020-12-30 12:10] LABS: M-SPIKE, % Comment: % (Not Observed); PROTEIN,TOTAL,URINE 284.5 mg/dL (Not Estab.)
== END | disposition home or self-care (01) ==
LOC: LAB 09:48 → LAB SHORT 09:48
PROVIDERS: Internal Medicine
DX: E88.09 Other disorders of plasma-protein metabolism, not elsewhere classified (principal)
CPT/HCPCS: 84156; 84166

== ENCOUNTER 2021-01-21 23:11 | Observation (INO) | payer MEDICARE, OTHER ==
[~2021-01-21] VITALS: Ht 167.6 cm; Wt 74.3 kg
[~2021-01-21 23:11] MED LIST changes: -SULFAMETHOXAZO1 EAC1 PO
[2021-01-21 23:34] LABS: BASOPHILS ABSOLUTE AUTO 0.06 K/mm3 (0.00-0.23); BASOPHILS PERCENT AUTO 1 % (0-2); EOSINOPHILS ABSOLUTE AUTO 0.15 K/mm3 (0.00-0.68); EOSINOPHILS PERCENT AUTO 2 % (0-6); Hematocrit 38.2 % (37.0-53.0); Hemoglobin 12.4 g/dL (13.5-17.5); IMMATURE GRAN ABSOLUTE AUTO 0.04 K/mm3 (0.00-0.10); IMMATURE GRAN PERCENT AUTO 0 % (0-1); LYMPHOCYTES ABSOLUTE AUTO 2.44 K/mm3 (0.84-5.20); LYMPHOCYTES PERCENT AUTO 26 % (21-46); MONOCYTES ABSOLUTE AUTO 0.66 K/mm3 (0.16-1.47); MONOCYTES PERCENT AUTO 7 % (4-13); Mean Corpuscular HGB Conc 32.5 g/dL (31.5-36.5); Mean Corpuscular Volume 90 fL (80-100); Mean Platelet Volume 11.3 fL (9.1-12.4); NEUTROPHILS ABSOLUTE AUTO 6.06 K/mm3 (1.96-9.15); NEUTROPHILS PERCENT AUTO 65 % (41-73); Platelet Count 250 K/mm3 (150-400); RDW Coefficient Variation 12.6 % (11.7-14.2); RDW Standard Deviation 41.2 fL (35.1-46.3); Red Blood Cell Count 4.27 M/mm3 (4.30-5.90); White Blood Cell Count 9.41 K/mm3 (4.00-11.30)
[2021-01-22] LABS: Alanine Aminotransfer (ALT/SGP 30 U/L (12-78); Albumin, Blood 3.7 g/dL (3.4-5.0); Albumin/Globulin Ratio 0.9 (0.8-1.8); Alk Phos 86 U/L (50-136); Anion Gap 6 mmol/L (6-16); Aspartate Aminotrans (AST/SGOT 24 U/L (12-37); Bilirubin, Total 0.4 mg/dL (0.1-1.0); Blood Urea Nitrogen 27 mg/dL (8-24); Bun/Creatinine Ratio 18.1 (12.0-20.0); CO2, Blood 28 mmol/L (21-32); Calcium, Blood 9.5 mg/dL (8.5-10.1); Chloride, Blood 99 mmol/L (98-108); Creatinine, Blood 1.49 mg/dL (0.60-1.20); Globulin, Blood 4.3 g/dL (2.2-4.0); Glomerular Filtration Rate 54 (60-); Glucose, Blood 365 mg/dL (70-99); Potassium, Blood 4.2 mmol/L (3.5-5.5); Sodium, Blood 133 mmol/L (136-145)
[2021-01-22 00:01] LABS: Troponin I <0.015 ng/mL (0.000-0.040)
[2021-01-22 04:26] LABS: BASOPHILS ABSOLUTE AUTO 0.04 K/mm3 (0.00-0.23); BASOPHILS PERCENT AUTO 1 % (0-2); EOSINOPHILS PERCENT AUTO 1 % (0-6); Hematocrit 32.1 % (37.0-53.0); Hemoglobin 10.7 g/dL (13.5-17.5); IMMATURE GRAN ABSOLUTE AUTO 0.02 K/mm3 (0.00-0.10); IMMATURE GRAN PERCENT AUTO 0 % (0-1); LYMPHOCYTES PERCENT AUTO 23 % (21-46); MONOCYTES ABSOLUTE AUTO 0.58 K/mm3 (0.16-1.47); MONOCYTES PERCENT AUTO 7 % (4-13); Mean Corpuscular HGB 29.3 pg (26.0-34.0); Mean Corpuscular HGB Conc 33.3 g/dL (31.5-36.5); Mean Corpuscular Volume 88 fL (80-100); NEUTROPHILS ABSOLUTE AUTO 5.88 K/mm3 (1.96-9.15); NEUTROPHILS PERCENT AUTO 68 % (41-73); RDW Coefficient Variation 12.5 % (11.7-14.2); RDW Standard Deviation 39.8 fL (35.1-46.3); Red Blood Cell Count 3.65 M/mm3 (4.30-5.90); White Blood Cell Count 8.62 K/mm3 (4.00-11.30)
[2021-01-22 04:30] LABS: Platelet Count 412 K/mm3 (150-400)
[2021-01-22 04:50] LABS: Albumin, Blood 3.2 g/dL (3.4-5.0); Albumin/Globulin Ratio 0.9 (0.8-1.8); Bilirubin, Total 0.3 mg/dL (0.1-1.0); Bun/Creatinine Ratio 17.3 (12.0-20.0); Calcium, Blood 8.5 mg/dL (8.5-10.1); Creatinine, Blood 1.39 mg/dL (0.60-1.20); Globulin, Blood 3.4 g/dL (2.2-4.0); Potassium, Blood 4.2 mmol/L (3.5-5.5); Total Protein, Blood 6.6 g/dL (6.4-8.2)
--- NOTE | 2021-01-22 06:16 | NUR ---
ADMIT NOTE AND SHIFT SUMMARY PT ARRIVED TO PCU FROM ED VIA ED STRETCHER AT APPROX 0300. THE PT WAS SLID BY 5 STAFF FROM ED STRETCHER TO PCU BED. PT A&OX4. R SIDE DEFICIT/WEAKNESS. SP02>92% ON RA. TELEMETRY READS SR, HR 80'S. PT REFUSED SUPPOSITORY ASPIRIN. CALL PLACED TO MD ARZATE. MD ARZATE W/ ORDERS FOR PO ASPIRIN. PT STATES HE TAKES HIS MEDS IN APPLESAUCE. PT ARRIVED TO FLOOR WITH FAJARDO CATHETER FROM HOME, STATES HAS BEEN IN "MORE THAN A MONTH". FAJARDO CATHETER REPLACED AND URINE SENT TO LAB. PT ABLE TO REPOSITION SELF IN BED. PT A GOOD HISTORIAN, BUT STATES HIS FIANCE/CAREGIVER HAS HIS MED LIST. PT STATES HE WILL HAVE MED LIST BROUGHT IN DURING VISITING HOURS TO COMPLETE MED REC. PT SLEPT AFTER ADMISSION. CALL LIGHT IN REACH. WILL GIVE REPORT TO ONCOMING NURSE.
[2021-01-22 06:18] LABS: Source, Urine Clean Catch
[2021-01-22 06:21] LABS: Bilirubin, Urine Neg (Neg); Blood, Urine 3+ (Neg); Glucose Qualitative, Urine 4+ (Neg); Ketones, Urine Neg (Neg); Leukocyte Esterase, Urine 3+ (Neg); Nitrite, Urine Pos (Neg); Protein, Urine 4+ (Neg); Specific Gravity, Urine 1.015 (1.003-1.022); Urobilinogen, Urine NORM (Normal)
[2021-01-22 07:10] LABS: Color, Urine Pale Yellow (P-Yellow)
[2021-01-22 07:11] LABS: Appearance, Urine Hazy (Clear)
[2021-01-22 07:17] LABS: White Blood Cells, Urine TNTC /hpf (0-5)
[2021-01-22 07:21] LABS: Squamous Epithelial Cells Rare /hpf (Few)
[2021-01-22 07:22] LABS: Bacteria Mod /hpf
[2021-01-22] MEDS ORDERED: ASPI81CH PO (13:08)
[2021-01-22] MEDS ORDERED: SULFAMETHOXAZO1 EAC1 PO (13:10)
--- NOTE | 2021-01-22 14:03 | NUR ---
UPDATE; AGREES WITH CAR SEAT MAKER TO WEAR BIPAP. BIPAP STARTED BY RT. WEARS FOR APPROX 5 MINS THEN BEGINS TO YELL AND SCREAM THAT CAN'T BREATH. PULLS MASK OF AND COUGHS UP SMALL AMOUNT OF CLEAR THIN SPUTUM. CAR SEAT MAKER NOTFIED BY MEMORIAL MARKER DESIGNER. MEMORIAL MARKER DESIGNER AND ROLLED HAM LACER TO ROOM FOR VBG. CONTINUES TO YELL AND CUSS AND MEMORIAL MARKER DESIGNER THREATENING TO EMMANUEL HER AFTER MULTIPIPLE ATTEMPTS BY MEMORIAL MARKER DESIGNER TO DESCALATE SITUTATION. MEMORIAL MARKER DESIGNER LEAVES ROOM PT ON 3L 02 VIA NC. SITUTATION WHITNESSED BY THIS RN.
--- NOTE | 2021-01-22 14:46 | NUR ---
VERBAL AND WRITTEN INSTRUCTIONS GIVEN TO PT AND SO WITH CLEAR UNDERSTANDING. RX'S FAXED TO PHARMACY. DC'D WITH BELONGINGS IN PT'S PERSONAL WHEEL CHAIR IN NO DISTRESS.
== END 2021-01-22 13:34 | disposition home or self-care (01) ==
LOC: ER 23:11 → PCU 23:12 → ER 01-22 01:38 → PCU 01-22 01:38
PROVIDERS: Emergency Medicine; ADMIT Internal Medicine
DX: G45.9 Transient cerebral ischemic attack, unspecified (principal); R29.810 Facial weakness; N39.0 Urinary tract infection, site not specified; E11.65 Type 2 diabetes mellitus with hyperglycemia; N40.0 Benign prostatic hyperplasia without lower urinary tract symptoms; I12.9 Hypertensive chronic kidney disease with stage 1 through stage 4 chronic kidney disease, or unspecified chronic kidney disease; N18.30 Chronic kidney disease, stage 3 unspecified; E11.40 Type 2 diabetes mellitus with diabetic neuropathy, unspecified; I65.02 Occlusion and stenosis of left vertebral artery; E11.22 Type 2 diabetes mellitus with diabetic chronic kidney disease; F17.210 Nicotine dependence, cigarettes, uncomplicated; R00.0 Tachycardia, unspecified; F32.9 Major depressive disorder, single episode, unspecified; Z88.5 Allergy status to narcotic agent; Z79.4 Long term (current) use of insulin; Z86.73 Personal history of transient ischemic attack (TIA), and cerebral infarction without residual deficits
CPT/HCPCS: 36415; 70450; 70496; 70498; 80053; 81001; 82947; 84484; 85025; 87077; 87086; 87147; 87186; 92610; 93005; 93010; 96361; 96365; 96366; 96372; 96374; 96375; 97110; 97162; 97530; 99285-25; A9270; G0378; J0696; J1650; J2405; J2550; J7030; Q9967

== ENCOUNTER 2021-07-12 21:27 | Inpatient (IN) | payer OTHER ==
[~2021-07-12] VITALS: Ht 170.2 cm; Wt 57.9 kg
[~2021-07-12 21:27] MED LIST changes: +SULFAMETHOXAZO1 EAC1 PO
[2021-07-12 22:32] LABS: BASOPHILS ABSOLUTE AUTO 0.06 K/mm3 (0.00-0.23); BASOPHILS PERCENT AUTO 1 % (0-2); EOSINOPHILS PERCENT AUTO 1 % (0-6); Hematocrit 35.5 % (37.0-53.0); Hemoglobin 11.4 g/dL (13.5-17.5); IMMATURE GRAN ABSOLUTE AUTO 0.06 K/mm3 (0.00-0.10); IMMATURE GRAN PERCENT AUTO 1 % (0-1); LYMPHOCYTES ABSOLUTE AUTO 2.17 K/mm3 (0.84-5.20); LYMPHOCYTES PERCENT AUTO 21 % (21-46); MONOCYTES ABSOLUTE AUTO 0.58 K/mm3 (0.16-1.47); MONOCYTES PERCENT AUTO 6 % (4-13); Mean Corpuscular HGB 28.8 pg (26.0-34.0); Mean Corpuscular HGB Conc 32.1 g/dL (31.5-36.5); Mean Corpuscular Volume 90 fL (80-100); Mean Platelet Volume 11.2 fL (9.1-12.4); NEUTROPHILS ABSOLUTE AUTO 7.49 K/mm3 (1.96-9.15); NEUTROPHILS PERCENT AUTO 72 % (41-73); Platelet Count 166 K/mm3 (150-400); RDW Coefficient Variation 12.9 % (11.7-14.2); RDW Standard Deviation 42.5 fL (35.1-46.3); Red Blood Cell Count 3.96 M/mm3 (4.30-5.90); White Blood Cell Count 10.46 K/mm3 (4.00-11.30)
[2021-07-12 22:51] LABS: Alanine Aminotransfer (ALT/SGP 24 U/L (12-78); Albumin, Blood 3.2 g/dL (3.4-5.0); Albumin/Globulin Ratio 0.9 (0.8-1.8); Alk Phos 52 U/L (50-136); Anion Gap 8 mmol/L (6-16); Aspartate Aminotrans (AST/SGOT 24 U/L (12-37); Bilirubin, Total 0.2 mg/dL (0.1-1.0); Blood Urea Nitrogen 32 mg/dL (8-24); Bun/Creatinine Ratio 19.9 (12.0-20.0); CO2, Blood 26 mmol/L (21-32); Chloride, Blood 106 mmol/L (98-108); Creatinine, Blood 1.61 mg/dL (0.60-1.20); Globulin, Blood 3.5 g/dL (2.2-4.0); Glomerular Filtration Rate 46 (60-); Glucose, Blood 156 mg/dL (70-99); Potassium, Blood 4.7 mmol/L (3.5-5.5); Sodium, Blood 140 mmol/L (136-145); Total Protein, Blood 6.7 g/dL (6.4-8.2); Troponin I <0.015 ng/mL (0.000-0.040)
[2021-07-12 23:38] LABS: Influenza A, PCR NEGATIVE (NEGATIVE); Influenza B, PCR NEGATIVE (NEGATIVE); Resp Syncytial Virus, PCR NEGATIVE (NEGATIVE); SARS-Cov-2 (COVID-19) PCR, MMC NEGATIVE (NEGATIVE)
[2021-07-13 00:26] LABS: Source, Urine Voided
[2021-07-13 00:28] LABS: Bilirubin, Urine Neg (Neg); Blood, Urine 4+ (Neg); Glucose Qualitative, Urine Neg (Neg); Ketones, Urine Neg (Neg); Leukocyte Esterase, Urine 2+ (Neg); Nitrite, Urine Neg (Neg); Protein, Urine 3+ (Neg); Specific Gravity, Urine 1.015 (1.003-1.022); Urobilinogen, Urine NORM (Normal)
[2021-07-13 00:39] LABS: Appearance, Urine Hazy (Clear); Color, Urine Yellow (P-Yellow)
[2021-07-13 00:40] LABS: Amorphous Light (0-Heavy); Bacteria Few /hpf; Mucus Light (0-Heavy); Squamous Epithelial Cells Rare /hpf (Few); White Blood Cells, Urine 50-100 /hpf (0-5)
[2021-07-13 04:13] LABS: Adenovirus F 40/41 Not Detected (NOT DETECT); Astrovirus Not Detected (NOT DETECT); Campylobacter Sp Not Detected (NOT DETECT); Cryptosporidium Detected (NOT DETECT); Cyclospora Cayetanensis Not Detected (NOT DETECT); E. Coli O157 Not Detected (NOT DETECT); Entamoeba Histolytica Not Detected (NOT DETECT); Enteroaggregative E. coli-EAEC Not Detected (NOT DETECT); Enteropathogenic E. coli-EPEC Not Detected (NOT DETECT); Enterotoxigenic E. coli-ETEC Not Detected (NOT DETECT); Giardia Lamblia Not Detected (NOT DETECT); Norovirus GI/GII Not Detected (NOT DETECT); Plesiomonas Shigelloides Not Detected (NOT DETECT); Rotavirus A Not Detected (NOT DETECT); Salmonella Sp Not Detected (NOT DETECT); Sapovirus Not Detected (NOT DETECT); Shiga Toxin-prod E. coli-STEC Not Detected (NOT DETECT); Shigella/Enteroin E. coli-EIEC Not Detected (NOT DETECT); Vibrio Cholerae Not Detected (NOT DETECT); Vibrio Sp Not Detected (NOT DETECT); Yersinia Enterocolitica Not Detected (NOT DETECT)
[2021-07-13 08:00] LABS: BASOPHILS ABSOLUTE AUTO 0.04 K/mm3 (0.00-0.23); BASOPHILS PERCENT AUTO 1 % (0-2); EOSINOPHILS ABSOLUTE AUTO 0.13 K/mm3 (0.00-0.68); EOSINOPHILS PERCENT AUTO 2 % (0-6); Hematocrit 30.5 % (37.0-53.0); Hemoglobin 9.9 g/dL (13.5-17.5); IMMATURE GRAN ABSOLUTE AUTO 0.03 K/mm3 (0.00-0.10); IMMATURE GRAN PERCENT AUTO 0 % (0-1); LYMPHOCYTES ABSOLUTE AUTO 2.34 K/mm3 (0.84-5.20); LYMPHOCYTES PERCENT AUTO 26 % (21-46); MONOCYTES ABSOLUTE AUTO 0.56 K/mm3 (0.16-1.47); MONOCYTES PERCENT AUTO 6 % (4-13); Mean Corpuscular HGB 28.9 pg (26.0-34.0); Mean Corpuscular HGB Conc 32.5 g/dL (31.5-36.5); Mean Corpuscular Volume 89 fL (80-100); Mean Platelet Volume 10.8 fL (9.1-12.4); NEUTROPHILS ABSOLUTE AUTO 5.76 K/mm3 (1.96-9.15); NEUTROPHILS PERCENT AUTO 65 % (41-73); Platelet Count 242 K/mm3 (150-400); RDW Coefficient Variation 13.1 % (11.7-14.2); RDW Standard Deviation 42.9 fL (35.1-46.3); Red Blood Cell Count 3.42 M/mm3 (4.30-5.90); White Blood Cell Count 8.86 K/mm3 (4.00-11.30)
[2021-07-13 08:15] LABS: Bun/Creatinine Ratio 19.3 (12.0-20.0); Calcium, Blood 8.1 mg/dL (8.5-10.1); Creatinine, Blood 1.35 mg/dL (0.60-1.20); Potassium, Blood 4.3 mmol/L (3.5-5.5)
--- NOTE | 2021-07-13 17:29 | NUR ---
SHIFT SUMMARY PATIENT IS ALERT AND ORIENTED X2. PATIENT HAS BEEN PLEASENT AND COOPERATIVE WITH CARE. PATIENT IS AN ADMIT FROM THE ED AROUND 1500. PATIENT HAS HAD A HISTORY OF CVAS WITH LINGERING DEFICITS AT BASELINE. PATIENT IS MINIMALLY VERBAL. PATIENT HAS HAD HIGH BLOOD PRESSURES SINCE ADMIT AND HAS GOTTEN ORDERS FOR A STAT ONE TIME BP MEDICATION PER EMAR. HOME MEDICATIONS HAVE BEEN INPUTTED INTO EMAR. VITAL SIGNS REVIEWED. CALL LIGHT IN PLACE. WILL MONITOR UNTIL SHIFT CHANGE.
[2021-07-14 06:06] LABS: BASOPHILS ABSOLUTE AUTO 0.05 K/mm3 (0.00-0.23); BASOPHILS PERCENT AUTO 1 % (0-2); EOSINOPHILS ABSOLUTE AUTO 0.11 K/mm3 (0.00-0.68); EOSINOPHILS PERCENT AUTO 2 % (0-6); Hematocrit 34.1 % (37.0-53.0); Hemoglobin 11.2 g/dL (13.5-17.5); IMMATURE GRAN ABSOLUTE AUTO 0.02 K/mm3 (0.00-0.10); IMMATURE GRAN PERCENT AUTO 0 % (0-1); LYMPHOCYTES ABSOLUTE AUTO 1.85 K/mm3 (0.84-5.20); LYMPHOCYTES PERCENT AUTO 25 % (21-46); MONOCYTES PERCENT AUTO 7 % (4-13); Mean Corpuscular HGB 29.3 pg (26.0-34.0); Mean Corpuscular HGB Conc 32.8 g/dL (31.5-36.5); Mean Corpuscular Volume 89 fL (80-100); NEUTROPHILS ABSOLUTE AUTO 4.78 K/mm3 (1.96-9.15); NEUTROPHILS PERCENT AUTO 65 % (41-73); Platelet Count 208 K/mm3 (150-400); RDW Coefficient Variation 12.6 % (11.7-14.2); RDW Standard Deviation 41.4 fL (35.1-46.3); Red Blood Cell Count 3.82 M/mm3 (4.30-5.90); White Blood Cell Count 7.31 K/mm3 (4.00-11.30)
--- NOTE | 2021-07-14 06:22 | NUR ---
SHIFT SUMMARY PT IS A 46 Y/O MALE, ADMITTED FOR ACUTE GASTROENTERITIS AND UTI. HE IS A&O X 3, WITH A HX OF MULTIPLE CVAS AND DIFFICULTIES SPEAKING. PT IS ABLE TO ANSWER YES OR NO QUESTIONS AND MAKE HIS NEEDS KNOWN. BEDREST. CHRONIC FAJARDO IN PLACE, PATENT AND DRAINING. NO C/O ACUTE PAIN, NAUSEA OR SOB. TELE SHOWED NSR IN THE 80S. VITAL SIGNS STABLE. LAB REPORTED PT HAD ONE POSITIVE BLOOD CULTURE, GRAM + COCCI IN CLUSTERS. PER PHARMACY, CURRENT ABX REGIMEN WAS MOST LIKELY NOT SUFFICIENT. HOSPITALIST DR CASTANOTRATE INFORMED, AND PT STARTED ON IV VANCOMYCIN. NO ACUTE CHANGES IN PT CONDITION NOTED DURING THE NIGHT. WILL CONTINUE TO MONITOR AND TREAT PER EMAR UNTIL HAND OFF TO DAY SHIFT RN.
[2021-07-14 07:04] LABS: Albumin, Blood 2.9 g/dL (3.4-5.0); Bilirubin, Total 0.3 mg/dL (0.1-1.0); Bun/Creatinine Ratio 11.9 (12.0-20.0); Calcium, Blood 8.9 mg/dL (8.5-10.1); Creatinine, Blood 1.43 mg/dL (0.60-1.20); Globulin, Blood 2.9 g/dL (2.2-4.0); Potassium, Blood 4.5 mmol/L (3.5-5.5); Total Protein, Blood 5.8 g/dL (6.4-8.2)
[2021-07-15 05:53] LABS: BASOPHILS ABSOLUTE AUTO 0.04 K/mm3 (0.00-0.23); BASOPHILS PERCENT AUTO 1 % (0-2); EOSINOPHILS PERCENT AUTO 1 % (0-6); Hematocrit 34.4 % (37.0-53.0); Hemoglobin 11.2 g/dL (13.5-17.5); IMMATURE GRAN ABSOLUTE AUTO 0.03 K/mm3 (0.00-0.10); IMMATURE GRAN PERCENT AUTO 0 % (0-1); LYMPHOCYTES ABSOLUTE AUTO 2.14 K/mm3 (0.84-5.20); LYMPHOCYTES PERCENT AUTO 29 % (21-46); MONOCYTES ABSOLUTE AUTO 0.47 K/mm3 (0.16-1.47); MONOCYTES PERCENT AUTO 6 % (4-13); Mean Corpuscular HGB 28.9 pg (26.0-34.0); Mean Corpuscular HGB Conc 32.6 g/dL (31.5-36.5); Mean Corpuscular Volume 89 fL (80-100); Mean Platelet Volume 10.8 fL (9.1-12.4); NEUTROPHILS ABSOLUTE AUTO 4.55 K/mm3 (1.96-9.15); NEUTROPHILS PERCENT AUTO 62 % (41-73); Platelet Count 248 K/mm3 (150-400); RDW Coefficient Variation 12.8 % (11.7-14.2); RDW Standard Deviation 41.5 fL (35.1-46.3); Red Blood Cell Count 3.88 M/mm3 (4.30-5.90); White Blood Cell Count 7.33 K/mm3 (4.00-11.30)
--- NOTE | 2021-07-15 06:19 | NUR ---
SHIFT SUMMARY PT IS A 46 Y/O FEMALE, ADMITTED FOR ACUTE GASTROENTERITIS AND UTI. HE IS A&O X 2, WITH A HX OF MULTIPLE CVAS. BEDREST. NO C/O NAUSEA OR SOB. PT DID REPORT MILD PAIN. HOPITALIST DR JADE NOTIFIED, AND PRN TYLENOL ORDERED. VITAL SIGNS STABLE. CHRONIC FAJARDO IN PLACE, PATENT AND DRAINING. NO OTHER ACUTE CHANGES IN PT CONDITION NOTED DURING THE NIGHT. WILL CONTINUE TO MONITOR AND TREAT PER EMAR UNTIL HAND OFF TO DAY SHIFT RN.
[2021-07-15 06:28] LABS: Albumin, Blood 3.1 g/dL (3.4-5.0); Albumin/Globulin Ratio 1.1 (0.8-1.8); Bilirubin, Total 0.4 mg/dL (0.1-1.0); Bun/Creatinine Ratio 9.4 (12.0-20.0); Creatinine, Blood 1.39 mg/dL (0.60-1.20); Globulin, Blood 2.9 g/dL (2.2-4.0); Potassium, Blood 3.9 mmol/L (3.5-5.5)
[2021-07-15] MEDS ORDERED: BACTRIM DS TAB1 EAC6 PO (13:35)
--- NOTE | 2021-07-15 14:56 | NUR ---
DISCHARGE PATIENT DISCHARGED HOME. DISCHARGE PAPERWORK REVIEWED WITH PATIENT. PATIENT HAD NO QUESTIONS. ALL BELONGINGS SENT DOWN WITH PATIENTS CAREGIVER. PRESCRIPTIONS FAXED TO PATIENTS PHARMACY OF CHOICE. PATIENT TRANSPORTED VIA WHEELCHAIR TO PERSONAL VEHICLE.
--- NOTE | 2021-07-18 11:29 | NUR ---
Per Dr. Richter discharge appropriate for 07/15/21. Patient does not oppose discharge. [facility] transported patient to their residence. No barriers to discharge at this time. Patient contacted on 07/18/21 to schedule discharge follow up with PCP ([facility] not available).
== END 2021-07-15 14:02 | disposition home health service (06) | DRG 372 ==
LOC: ER 21:27 → ERHOLD 07-13 02:31 → MEDS 07-13 02:31
PROVIDERS: Emergency Medicine; Family Medicine; ADMIT Family Medicine
DX: A07.2 Cryptosporidiosis (principal); T83.511A Infection and inflammatory reaction due to indwelling urethral catheter, initial encounter; I69.351 Hemiplegia and hemiparesis following cerebral infarction affecting right dominant side; E87.2 Acidosis; I69.392 Facial weakness following cerebral infarction; Z20.822 Contact with and (suspected) exposure to COVID-19; E11.40 Type 2 diabetes mellitus with diabetic neuropathy, unspecified; I10 Essential (primary) hypertension; E86.0 Dehydration; F17.210 Nicotine dependence, cigarettes, uncomplicated; Z88.6 Allergy status to analgesic agent; Z91.048 Other nonmedicinal substance allergy status; Z79.2 Long term (current) use of antibiotics; Z79.4 Long term (current) use of insulin; Z79.02 Long term (current) use of antithrombotics/antiplatelets; Z79.899 Other long term (current) drug therapy; Y84.6 Urinary catheterization as the cause of abnormal reaction of the patient, or of later complication, without mention of misadventure at the time of the procedure
CPT/HCPCS: 0097U; 0241U; 36415; 51702; 70450; 80048; 80053; 81001; 82947; 83605; 83690; 84145; 84484; 85025; 87040; 87077; 87086; 87186; 93005; 93010; 96365; 96375; 99285-25; A9270; J0696; J1644; J1815; J2405; J3370; J7030; J7050

== ENCOUNTER 2021-11-07 22:15 | Emergency (ER) | payer OTHER ==
[~2021-11-07] VITALS: Ht 177.8 cm; Wt 65.8 kg
[~2021-11-07 22:15] MED LIST changes: +BACTRIM DS TAB1 EAC6 PO
[2021-11-07 22:39] LABS: Source, Urine Clean Catch
[2021-11-07 22:41] LABS: BASOPHILS ABSOLUTE AUTO 0.08 K/mm3 (0.00-0.23); BASOPHILS PERCENT AUTO 1 % (0-2); Bilirubin, Urine Neg (Neg); Blood, Urine 3+ (Neg); EOSINOPHILS PERCENT AUTO 1 % (0-6); Glucose Qualitative, Urine Neg (Neg); Hemoglobin 11.9 g/dL (13.5-17.5); IMMATURE GRAN ABSOLUTE AUTO 0.05 K/mm3 (0.00-0.10); IMMATURE GRAN PERCENT AUTO 0 % (0-1); Ketones, Urine 1+ (Neg); LYMPHOCYTES ABSOLUTE AUTO 2.47 K/mm3 (0.84-5.20); LYMPHOCYTES PERCENT AUTO 20 % (21-46); Leukocyte Esterase, Urine 3+ (Neg); MONOCYTES ABSOLUTE AUTO 0.75 K/mm3 (0.16-1.47); MONOCYTES PERCENT AUTO 6 % (4-13); Mean Corpuscular HGB Conc 32.2 g/dL (31.5-36.5); Mean Corpuscular Volume 93 fL (80-100); Mean Platelet Volume 10.7 fL (9.1-12.4); NEUTROPHILS ABSOLUTE AUTO 8.76 K/mm3 (1.96-9.15); NEUTROPHILS PERCENT AUTO 72 % (41-73); Nitrite, Urine Pos (Neg); Platelet Count 341 K/mm3 (150-400); Protein, Urine 4+ (Neg); RDW Coefficient Variation 13.7 % (11.7-14.2); RDW Standard Deviation 47.2 fL (35.1-46.3); Red Blood Cell Count 3.97 M/mm3 (4.30-5.90); Urobilinogen, Urine NORM (Normal); White Blood Cell Count 12.21 K/mm3 (4.00-11.30)
[2021-11-07 23:00] LABS: Alanine Aminotransfer (ALT/SGP 33 U/L (12-78); Albumin, Blood 3.8 g/dL (3.4-5.0); Alk Phos 57 U/L (50-136); Anion Gap 10 mmol/L (6-16); Aspartate Aminotrans (AST/SGOT 21 U/L (12-37); Bilirubin, Total 0.3 mg/dL (0.1-1.0); Blood Urea Nitrogen 25 mg/dL (8-24); Bun/Creatinine Ratio 22.5 (12.0-20.0); CO2, Blood 28 mmol/L (21-32); Calcium, Blood 10.3 mg/dL (8.5-10.1); Chloride, Blood 104 mmol/L (98-108); Creatinine, Blood 1.11 mg/dL (0.60-1.20); Globulin, Blood 3.8 g/dL (2.2-4.0); Glomerular Filtration Rate >60 (60-); Glucose, Blood 127 mg/dL (70-99); Potassium, Blood 4.6 mmol/L (3.5-5.5); Sodium, Blood 142 mmol/L (136-145); Total Protein, Blood 7.6 g/dL (6.4-8.2)
[2021-11-07 23:10] LABS: Appearance, Urine Cloudy (Clear); Color, Urine Yellow (P-Yellow)
[2021-11-07 23:12] LABS: Bacteria Many /hpf; Squamous Epithelial Cells Few /hpf (Few); White Blood Cells, Urine 50-100 /hpf (0-5)
[2021-11-07 23:13] LABS: Hyaline Casts 0-2 /lpf (0-2)
[2021-11-07] MEDS ORDERED: METFORMIN HCL500 M3 PO (23:24)
[2021-11-07] MEDS ORDERED: Nitrofurantoin100 M1 PO (23:27)
[2021-11-07] MEDS ORDERED: LISI20 (23:27)
[2021-11-07] MEDS ORDERED: PREGABALIN25 MG PO (23:28)
[2021-11-07] MEDS ORDERED: NOVOLOG100 UNIT/3 SQ (23:28)
[2021-11-08] MEDS ORDERED: Cipro500 MG PO (01:07)
[2021-11-08] MEDS ORDERED: Zofran4 MG PO (01:07)
== END 2021-11-08 02:10 | disposition home or self-care (01) ==
LOC: ER 22:15
PROVIDERS: Emergency Medicine
DX: A41.9 Sepsis, unspecified organism (principal); N39.0 Urinary tract infection, site not specified; I12.9 Hypertensive chronic kidney disease with stage 1 through stage 4 chronic kidney disease, or unspecified chronic kidney disease; E11.22 Type 2 diabetes mellitus with diabetic chronic kidney disease; N18.9 Chronic kidney disease, unspecified; E11.40 Type 2 diabetes mellitus with diabetic neuropathy, unspecified; Z86.73 Personal history of transient ischemic attack (TIA), and cerebral infarction without residual deficits; Z79.4 Long term (current) use of insulin; Z79.84 Long term (current) use of oral hypoglycemic drugs; Z79.899 Other long term (current) drug therapy; Z88.5 Allergy status to narcotic agent; Z91.048 Other nonmedicinal substance allergy status
CPT/HCPCS: 36415; 80053; 81001; 83605; 83690; 85025; 87077; 87086; 87186; 96365; 96375; 99284-25; J0744; J7030

== ENCOUNTER 2022-05-09 16:33 | Inpatient (IN) | payer OTHER ==
[~2022-05-09] VITALS: Ht 182.9 cm; Wt 81.0 kg
[~2022-05-09 16:33] MED LIST changes: +CATAPRES0.1 MG PO; -CLON.3 PO; +Cipro500 MG PO; -DULOXETINE HCL60 M1 PO; +LISI20 PO; +METFORMIN HCL500 M3 PO; +NOVOLOG100 UNIT/3 SQ; +Nitrofurantoin100 M1 PO; +PREGABALIN25 MG PO; +Zofran4 MG PO
[2022-05-09] MEDS ORDERED: PROMETHAZINE PO (17:03)
[2022-05-09 17:11] LABS: BASOPHILS ABSOLUTE AUTO 0.04 K/mm3 (0.00-0.23); BASOPHILS PERCENT AUTO 0 % (0-2); EOSINOPHILS ABSOLUTE AUTO 0.02 K/mm3 (0.00-0.68); EOSINOPHILS PERCENT AUTO 0 % (0-6); Hematocrit 29.7 % (37.0-53.0); Hemoglobin 9.3 g/dL (13.5-17.5); IMMATURE GRAN ABSOLUTE AUTO 0.16 K/mm3 (0.00-0.10); IMMATURE GRAN PERCENT AUTO 1 % (0-1); LYMPHOCYTES ABSOLUTE AUTO 1.73 K/mm3 (0.84-5.20); LYMPHOCYTES PERCENT AUTO 13 % (21-46); MONOCYTES ABSOLUTE AUTO 0.68 K/mm3 (0.16-1.47); MONOCYTES PERCENT AUTO 5 % (4-13); Mean Corpuscular HGB 28.9 pg (26.0-34.0); Mean Corpuscular HGB Conc 31.3 g/dL (31.5-36.5); Mean Corpuscular Volume 92 fL (80-100); NEUTROPHILS ABSOLUTE AUTO 10.33 K/mm3 (1.96-9.15); NEUTROPHILS PERCENT AUTO 80 % (41-73); Platelet Count 447 K/mm3 (150-400); RDW Coefficient Variation 13.4 % (11.7-14.2); RDW Standard Deviation 45.7 fL (35.1-46.3); Red Blood Cell Count 3.22 M/mm3 (4.30-5.90); White Blood Cell Count 12.96 K/mm3 (4.00-11.30)
[2022-05-09 17:25] LABS: Albumin, Blood 2.6 g/dL (3.4-5.0); Albumin/Globulin Ratio 0.7 (0.8-1.8); Bilirubin, Total 0.5 mg/dL (0.1-1.0); Bun/Creatinine Ratio 8.8 (12.0-20.0); Calcium, Blood 8.4 mg/dL (8.5-10.1); Creatinine, Blood 10.3 mg/dL (0.60-1.20); Globulin, Blood 3.8 g/dL (2.2-4.0); Total Protein, Blood 6.4 g/dL (6.4-8.2)
[2022-05-09 19:09] LABS: Source, Urine Foley catheter
[2022-05-09 19:19] LABS: Appearance, Urine Cloudy (Clear); Bilirubin, Urine Neg (Neg); Blood, Urine 4+ (Neg); Glucose Qualitative, Urine 2+ (Neg); Ketones, Urine 1+ (Neg); Leukocyte Esterase, Urine 3+ (Neg); Nitrite, Urine Pos (Neg); Protein, Urine 3+ (Neg); Urobilinogen, Urine NORM (Normal)
[2022-05-09 19:26] LABS: Color, Urine Pale Yellow (P-Yellow)
[2022-05-09 19:27] LABS: Bacteria Mod /hpf; Hyaline Casts 0-2 /lpf (0-2); Squamous Epithelial Cells Rare /hpf (Few); WBC Cast 0-2 /lpf (0); White Blood Cells, Urine TNTC /hpf (0-5)
--- NOTE | 2022-05-09 22:38 | NUR ---
CARE ASSUMPTION: PATIENT ARRIVED BY GURNEY AND WAS SLID TO PCU 02 BED. PATIENT SLOW TO RESPOND AND BEDBOUND AT BASELINE. PATIENT NSR ON TELE AND VS WNL ON RA. WEIGHT SENT TO PHARMACY FOR VANCO. CALL PLACED TO HOSPITALIST X2 FOR CLARIFICATION OF ABX ORDERS - NO RETURNED CALL AT THIS TIME. PATIENT ASLEEP WITH CALL LIGHT IN REACH. FREQUENT ROUNDING PATIENT HAS WEAKNESS IN HANDS.
[2022-05-10 03:42] LABS: BASOPHILS ABSOLUTE AUTO 0.03 K/mm3 (0.00-0.23); BASOPHILS PERCENT AUTO 0 % (0-2); EOSINOPHILS PERCENT AUTO 1 % (0-6); Hematocrit 28.7 % (37.0-53.0); Hemoglobin 9.4 g/dL (13.5-17.5); IMMATURE GRAN ABSOLUTE AUTO 0.13 K/mm3 (0.00-0.10); IMMATURE GRAN PERCENT AUTO 1 % (0-1); LYMPHOCYTES ABSOLUTE AUTO 1.76 K/mm3 (0.84-5.20); LYMPHOCYTES PERCENT AUTO 14 % (21-46); MONOCYTES ABSOLUTE AUTO 0.92 K/mm3 (0.16-1.47); MONOCYTES PERCENT AUTO 7 % (4-13); Mean Corpuscular HGB 29.4 pg (26.0-34.0); Mean Corpuscular HGB Conc 32.8 g/dL (31.5-36.5); Mean Corpuscular Volume 90 fL (80-100); Mean Platelet Volume 10.1 fL (9.1-12.4); NEUTROPHILS ABSOLUTE AUTO 9.45 K/mm3 (1.96-9.15); NEUTROPHILS PERCENT AUTO 76 % (41-73); Platelet Count 316 K/mm3 (150-400); RDW Coefficient Variation 13.3 % (11.7-14.2); RDW Standard Deviation 44.2 fL (35.1-46.3); White Blood Cell Count 12.39 K/mm3 (4.00-11.30)
[2022-05-10 04:54] LABS: Albumin, Blood 2.4 g/dL (3.4-5.0); Anion Gap 16 mmol/L (6-16); Blood Urea Nitrogen 91 mg/dL (8-24); Bun/Creatinine Ratio 8.6 (12.0-20.0); CO2, Blood 16 mmol/L (21-32); Calcium, Blood 8.8 mg/dL (8.5-10.1); Chloride, Blood 99 mmol/L (98-108); Glomerular Filtration Rate 5 (60-); Glucose, Blood 69 mg/dL (70-99); Phosphorus, Blood 8.8 mg/dL (2.5-4.9); Potassium, Blood 6.5 mmol/L (3.5-5.5); Sodium, Blood 131 mmol/L (136-145)
--- NOTE | 2022-05-10 05:48 | NUR ---
SHIFT SUMMARY/CRITICAL VALUE: PATIENT'S HR REMAINED NSR T/O SHIFT. POTASSIUM DECREASED FROM 7.3 TO 6.5 THIS SHIFT, CREATININE INCREASED FROM 10.5 TO 10.6, AND PHOSPHORUS IS 8.8 OF AM LABS. CALL PLACED TO HOSPITALIST AND NEW ORDERS RECEIVED. PATIENT HAS MINIMAL USE OF LIMBS - Q2 TURN. Q4 CBGS. MEDICATED PER EMAR. ADMISSION HX AND MED REC NOT COMPLETE - ASSISTANCE FROM FIDE LOVETT NEEDED. FAJARDO DRAINING TO GRAVITY. BED LOW WITH CALL LIGHT IN PLACE. WILL CONTINUE TO MONITOR AND REPORT TO ONCOMING RN.
--- NOTE | 2022-05-10 08:15 | NUR ---
INITIAL ASSESSMENT: Patient is resting with eyes closed, resp e/u. Patient easily awakens to voice. He is alert and oriented he states he is just tired. He has right side is flaccid, LUE is weak and his left leg is strong. He has a right sided facial droop. HRR, SR in the 80s. LS CTA, Biox WNL on RA. BT+, pt states he was having diarrhea at home but that has slowed down since he arrived to the hospital. PPP. Chronic Borja patent and draining. Patient denies other needs at this time. Call light in reach.
[2022-05-10 10:13] LABS: Vancomycin, Random 13.9 ug/mL
--- NOTE | 2022-05-10 12:30 | NUR ---
Update: Dr. Cornelius is here to see the patient. She is very concerned. She has ordered new labs and will choose to dialyze with patients blessing if they have not increased. VSS. Patient and family aware. Dr. Cornelius called the patients rehab care assistant and significant other. Patient denies any needs at this time. Call light in reach.
[2022-05-10 14:25] LABS: Albumin, Blood 2.5 g/dL (3.4-5.0); Anion Gap 16 mmol/L (6-16); Blood Urea Nitrogen 88 mg/dL (8-24); Bun/Creatinine Ratio 8.3 (12.0-20.0); CO2, Blood 17 mmol/L (21-32); Calcium, Blood 8.7 mg/dL (8.5-10.1); Chloride, Blood 99 mmol/L (98-108); Glomerular Filtration Rate 5 (60-); Glucose, Blood 108 mg/dL (70-99); Phosphorus, Blood 8.5 mg/dL (2.5-4.9); Potassium, Blood 6.9 mmol/L (3.5-5.5); Sodium, Blood 132 mmol/L (136-145)
--- NOTE | 2022-05-10 15:43 | NUR ---
Update: Pts creatinine contnues to be 10.6. Potassium is 6.9. Stat consult placed for Dr. Rincon to place a permacath. VSS. Patient and family brought up to date. They deny other needs or questions at this time. Will continue to montior.
--- NOTE | 2022-05-10 17:14 | NUR ---
Summary: Patient has been alert and oriented t/o the shift. He has a history of two major strokes affecting both sides. Patients right side is flaccid. His left is weak but he is able to have some movement. HRR, SR in the 80s. He was slightly hypertensive today, I just got all of his home medications reordered. LS CTA, Biox wnl on RA. BT+, at home he was having diarrhea-he did not have a BM this shift. PPP. His renal function continued to decline today this he recieved a permacath and is now recieving dialysis. He has a chronic vital that has out out a little more than 2l for this shift. Sig other at the bedside. Patient is resting comfortably at this time. Call light in reach, will continue to monitor.
--- NOTE | 2022-05-10 20:15 | NUR ---
ASSESSMENT/ASSUMED CARE PT AWAKE WATCHING TV. DENIES PAIN. PT ABLE TO MOVE LEFT ARM AND LEG. RIGHT SIDE FLACCID, HX CVA. LUNGS CLEAR BUT DECREASED IN THE BASES ON ROOMAIR. RESP EVEN AND NONLABORED. HEART RATE REGULAR, BP STABLE. BT+ ABD SOFT AND NONTENDER. DIALYSIS CATH TO RIGHT UPPER CHEST CLAMPED. DIALYSIS COMPLETE TONIGHT. FAJARDO CATH PATENT DRAINING PALE YELLOW URINE. POWER GLIDE IV TO LEFT UPPER ARM DRSG INTACT BICARB GTT AT 100 ML/HR SITE CLEAR. IV TO LEFT AC FLUSHING WITHOUT DIFFICULTY. IV TO RIGHT WRIST/HAND SALINE LOCKED, FLUSHED WITHOUT DIFFICULTY. PT REPOSITIONED FREQUENTLY. CALL LIGHT WITHIN REACH.
--- NOTE | 2022-05-10 23:36 | NUR ---
PT RESTING QUIETLY. BLOOD GLUCOSE 231, NO INSULIN ORDERED. ORAL CARE AND CATH CARE DONE. PT REPOSITIONED. VSS
[2022-05-11 04:11] LABS: BASOPHILS ABSOLUTE AUTO 0.04 K/mm3 (0.00-0.23); BASOPHILS PERCENT AUTO 1 % (0-2); EOSINOPHILS ABSOLUTE AUTO 0.06 K/mm3 (0.00-0.68); EOSINOPHILS PERCENT AUTO 1 % (0-6); Hematocrit 24.9 % (37.0-53.0); Hemoglobin 8.3 g/dL (13.5-17.5); IMMATURE GRAN ABSOLUTE AUTO 0.09 K/mm3 (0.00-0.10); IMMATURE GRAN PERCENT AUTO 1 % (0-1); LYMPHOCYTES ABSOLUTE AUTO 1.17 K/mm3 (0.84-5.20); LYMPHOCYTES PERCENT AUTO 17 % (21-46); MONOCYTES ABSOLUTE AUTO 0.47 K/mm3 (0.16-1.47); MONOCYTES PERCENT AUTO 7 % (4-13); Mean Corpuscular HGB 28.8 pg (26.0-34.0); Mean Corpuscular HGB Conc 33.3 g/dL (31.5-36.5); Mean Corpuscular Volume 87 fL (80-100); Mean Platelet Volume 10.1 fL (9.1-12.4); NEUTROPHILS ABSOLUTE AUTO 5.16 K/mm3 (1.96-9.15); NEUTROPHILS PERCENT AUTO 74 % (41-73); Platelet Count 275 K/mm3 (150-400); RDW Coefficient Variation 13.5 % (11.7-14.2); RDW Standard Deviation 42.8 fL (35.1-46.3); Red Blood Cell Count 2.88 M/mm3 (4.30-5.90); White Blood Cell Count 6.99 K/mm3 (4.00-11.30)
[2022-05-11 04:38] LABS: Albumin, Blood 2.2 g/dL (3.4-5.0); Albumin/Globulin Ratio 0.6 (0.8-1.8); Bilirubin, Total 0.5 mg/dL (0.1-1.0); Bun/Creatinine Ratio 7.1 (12.0-20.0); Calcium, Blood 7.7 mg/dL (8.5-10.1); Creatinine, Blood 6.86 mg/dL (0.60-1.20); Globulin, Blood 3.5 g/dL (2.2-4.0); Total Protein, Blood 5.7 g/dL (6.4-8.2)
[2022-05-11 04:49] LABS: Potassium, Blood 4.4 mmol/L (3.5-5.5)
[2022-05-11 05:06] LABS: Phosphorus, Blood 6.5 mg/dL (2.5-4.9)
--- NOTE | 2022-05-11 06:14 | NUR ---
S-HIFT SUMMARY PT RESTING QUIELTY. TURNED Q2HRS TO PREVENT SKIN BREAKDOWN. DENIES PAIN. NEURO CHECKS Q4HR NO CHANGE. PT UNABLE TO MOVE RIGHT ARM OR LEG, HX CVA. LEFT SIDE WEAK BUT ABLE TO MOVE AROUND. PT ON ROOMAIR, REST EVEN AND NONLABORED. SPO2 96-100% ON ROOMAIR. HEART RATE SINUS RHYTHM 80-100'S. BP STABLE. FAJARDO CATH PATENT DRAINING PALE YELLOW URINE. DIALYSIS CATH TO RIGHT UPPER CHEST WALL, DRSG INTACT WITH SITE CLEAR. POWER GLIDE TO LEFT UPPER ARM WITH DRSG INTACT. BICARB GTT AT 100 ML/HR. NO ACUTE CHANGE. REPORT TO ON COMING NURSE
--- NOTE | 2022-05-11 07:35 | NUR ---
INITIAL ASSESSMENT: Patient is resting with eyes closed, he awakens easily with verbal stimuli.LUCIEN. PT is flaccid on the right upper and lower extremities. He also has a right facial droop. He denies pain at this time. HRR, SR in the 80s-90s. LS Clear T/O, Biox 100% on RA. BT hypoactive, pt states he is passing flatus. Chronic vital cath in place, patent and draining clear yellow urine. PPP. Perma cath to the right upper chest with CHG dressing CDI. PT repositioned. He denies other needs at this time. Call light in reach.
--- NOTE | 2022-05-11 14:37 | NUR ---
Update: Dr. Cornelius has been by to see the patient. The plan is to dialyze the patient again today and then give him a break on the weekend to see what his kidney function is. VSS. Patient has been resting comfortably. Sig other at bedside. CBGs have been high, bicarb gtt was DC'd and medium s/s was ordered. Patient denies other needs at this time. Call light in reach.
--- NOTE | 2022-05-11 14:39 | NUR ---
Patient was taken down to dialysis. Sig other to be at the bedside. Report given to Melinda HYMAN to assume care.
--- NOTE | 2022-05-11 17:30 | NUR ---
Pt is in dialysis. Medications given and dinner tray taken to him. Friend at the bedside is helping him with his meal. Aristides Henriquez RN also at bedside.
--- NOTE | 2022-05-11 18:18 | NUR ---
ASSUMED CARE OF PT AT 1500, PT OUT TO DIALYSIS. PT BACK TO ROOM FROM DIALYSIS AT 1800. VSS. PT REPORTS FEELING "TIRED". REPOSITIONED TO RIGHT SIDE. PT'S BROTHER AND GIRLFRIEND AT BEDSIDE. CALL LIGHT IN REACH AND BED IN LOWEST POSITION.
--- NOTE | 2022-05-11 20:55 | NUR ---
pt had period of emisis x1 after repositioning pt informed after episode if his head of bed raises to fast he gets nauseous. pt was also hypertensive after recheck was somewhat better in 140"s. pt tolerated pills and head of bed 90degrees. was notified and jer ordered but not goven.
[2022-05-12 04:46] LABS: Hematocrit 28.2 % (37.0-53.0); Hemoglobin 9.3 g/dL (13.5-17.5); Mean Corpuscular HGB 29.7 pg (26.0-34.0); Mean Corpuscular Volume 90 fL (80-100); Mean Platelet Volume 10.1 fL (9.1-12.4); Platelet Count 312 K/mm3 (150-400); RDW Coefficient Variation 13.5 % (11.7-14.2); RDW Standard Deviation 44.4 fL (35.1-46.3); Red Blood Cell Count 3.13 M/mm3 (4.30-5.90); White Blood Cell Count 7.27 K/mm3 (4.00-11.30)
[2022-05-12 05:10] LABS: Ferritin, Serum 231 ng/mL (26-388); Iron Serum 54 ug/dL (65-175); Percent Saturation 30.5 % (20.0-50.0); Total Iron Binding Capacity 177 ug/dL (250-450)
[2022-05-12 05:11] LABS: Albumin, Blood 2.5 g/dL (3.4-5.0); Anion Gap 9 mmol/L (6-16); Blood Urea Nitrogen 22 mg/dL (8-24); Bun/Creatinine Ratio 5.1 (12.0-20.0); CO2, Blood 28 mmol/L (21-32); Calcium, Blood 8.4 mg/dL (8.5-10.1); Chloride, Blood 103 mmol/L (98-108); Creatinine, Blood 4.28 mg/dL (0.60-1.20); Glomerular Filtration Rate 16 (60-); Glucose, Blood 170 mg/dL (70-99); Phosphorus, Blood 4.5 mg/dL (2.5-4.9); Sodium, Blood 140 mmol/L (136-145)
--- NOTE | 2022-05-12 05:36 | NUR ---
SHIFT SUMMARY BEGINING OF SHIFT PT HAD TWO EPISODES OF EMISIS FIRST HE STATED BECAUSE HEAD OF BED WENT UP TWO FAST AND 2ND WAS A FEW MINS AFTERWARDS JUST DRY HEAVING WITH OUT ANY REPOSITIONING 4MG ZOFRAN GIVEN X1 WITH POSITIVE RESULTS. HE WAS HYPERTENSIVE AFTER EPISODES BUT QUICKLY RESOLOVED. PT WAS NORMOTENSIVE ALL OTHER BP CHECKS. PT RESTED COMFORTABLE THE REST OF NIGHT, 1200 ML OUT OF FAJARDO HH IS TRENDING BACK UP. STILL WAITING FOR CHEMISTRY RESULTS HES A DAILY DIALYSIS WILL CONTINUE TO MONITOR AND REPORT OFF TO ONCOMING RN.
[2022-05-12 08:11] LABS: HBSAG SCREEN Negative (Negative); HCV AB <0.1 (0.0-0.9); HEP A AB, IGM Negative (Negative); HEP B CORE AB, IGM Negative (Negative)
--- NOTE | 2022-05-12 17:54 | NUR ---
TWO EVENTS OF EMESIS THIS SHIFT, ZOFRAN GIVEN TWICE, OTHERWISE NO ACUTE EVENTS. TURNING AND REPOSITIONING FREQUENTLY. PT'S AND FAMILY IN TO VISIT THIS AFTERNOON/EVENING. IV ABX CHANGED TO PO TODAY. MONITORING U/O CLOSELY. PT USES CALL LIGHT APPROPRATELY, CALL LIGHT IN REACH, WILL CONTINUE TO MONITOR AND GIVE REPORT TO NOC SHIFT RN.
[2022-05-13 05:23] LABS: BASOPHILS ABSOLUTE AUTO 0.06 K/mm3 (0.00-0.23); BASOPHILS PERCENT AUTO 1 % (0-2); EOSINOPHILS ABSOLUTE AUTO 0.21 K/mm3 (0.00-0.68); EOSINOPHILS PERCENT AUTO 2 % (0-6); Hematocrit 30.4 % (37.0-53.0); Hemoglobin 9.9 g/dL (13.5-17.5); IMMATURE GRAN ABSOLUTE AUTO 0.09 K/mm3 (0.00-0.10); IMMATURE GRAN PERCENT AUTO 1 % (0-1); LYMPHOCYTES ABSOLUTE AUTO 2.49 K/mm3 (0.84-5.20); LYMPHOCYTES PERCENT AUTO 26 % (21-46); MONOCYTES ABSOLUTE AUTO 0.86 K/mm3 (0.16-1.47); MONOCYTES PERCENT AUTO 9 % (4-13); Mean Corpuscular HGB 29.2 pg (26.0-34.0); Mean Corpuscular HGB Conc 32.6 g/dL (31.5-36.5); Mean Corpuscular Volume 90 fL (80-100); NEUTROPHILS ABSOLUTE AUTO 5.96 K/mm3 (1.96-9.15); NEUTROPHILS PERCENT AUTO 62 % (41-73); Platelet Count 353 K/mm3 (150-400); RDW Coefficient Variation 13.3 % (11.7-14.2); RDW Standard Deviation 43.9 fL (35.1-46.3); Red Blood Cell Count 3.39 M/mm3 (4.30-5.90); White Blood Cell Count 9.67 K/mm3 (4.00-11.30)
[2022-05-13 05:43] LABS: Albumin, Blood 2.7 g/dL (3.4-5.0); Anion Gap 10 mmol/L (6-16); Blood Urea Nitrogen 26 mg/dL (8-24); CO2, Blood 28 mmol/L (21-32); Calcium, Blood 8.4 mg/dL (8.5-10.1); Chloride, Blood 101 mmol/L (98-108); Creatinine, Blood 5.16 mg/dL (0.60-1.20); Glomerular Filtration Rate 13 (60-); Glucose, Blood 140 mg/dL (70-99); Phosphorus, Blood 4.6 mg/dL (2.5-4.9); Potassium, Blood 3.5 mmol/L (3.5-5.5); Sodium, Blood 139 mmol/L (136-145)
--- NOTE | 2022-05-13 06:38 | NUR ---
SHIFT SUMMARY PT IS ALERT AND ORIENTED X4. HE HAS GARBLED SPEECH THAT IS HARD TO COMPREHEND AT TIMES. VITALS ARE STABLE AND HE REMAINS ON ROOM AIR WITH SATS ABOVE 92%. PT DENIES CHEST PAIN/PRESSURE. HE DENIES FELLING SOB. HE WAS N/V LAST NIGHT AND CALL WAS PLACED TO DR SCHWARZ FOR HIS PHENERAGAN THAT HE USES AT HOME. AFTER RECEIVING DOSE HE NO LONGER FELT SICK AND REMAINED WITHOUT N/V T/O THE REST OF THE NIGHT. HE HAS BEEN REPOSITIONED OFTEN. HE IS ABLE TO USE LEFT ARM FOR HOLDING OBJECTS AND USING CALL LIGHT. FAJARDO IN PLACE AND HAD 1000 OUTPUT THIS SHIFT. CALL LIGHT IS WITHIN REACH.
--- NOTE | 2022-05-13 17:57 | NUR ---
PT HAD HD TODAY, TOLERATED WELL, PER DR MOTT'S NOTE, NEXT HD PLANNED FOR SUNDAY. PT RECEIVED A BED BATH TODAY. PT'S SO AT BEDSIDE, QUESTIONS AND CONCERNS ADRESSED. SEE DOCUMENTED VS AND ASSESSMENT. PT IS NOW MEDICAL STATUS WITHOUT TELEMETRY. PT ABLE TO USE CALL LIGHT FOR NEEDS, CALL LIGHT IN REACH, WILL CONTINUE TO MONITOR AND GIVE REPORT TO NOC SHIFT RN.
--- NOTE | 2022-05-13 21:21 | NUR ---
CALLED DR KENNETH GALO REGARDING PT'S CBG OF 363. THERE ARE NO FURTHER ORDERS.
--- NOTE | 2022-05-14 06:01 | NUR ---
SHIFT SUMMARY PT IS ALERT AND ORIENTED. THERE HAVE BEEN NO ACUTE CHANGES T/O THE NIGHT. HE DENIES CHEST PAIN/PRESSURE. HE DENIES SOB. HE WAS ABLE TO CONVERSE WITH THIS NURSE LAST NIGHT AND COMMUNICATED NEEDS. VITALS ARE STABLE AND REMAINS ON ROOM AIR WITH SATS ABOVE 92%. FAJARDO IN PLACE AND DRAINING TO GRAVITY. CALL LIGHT IS WITHIN REACH.
[2022-05-14 11:08] LABS: Bun/Creatinine Ratio 4.8 (12.0-20.0); Calcium, Blood 9.2 mg/dL (8.5-10.1); Creatinine, Blood 3.52 mg/dL (0.60-1.20); Potassium, Blood 3.6 mmol/L (3.5-5.5)
--- NOTE | 2022-05-14 18:01 | NUR ---
NO ACUTE EVENTS T/O SHIFT. PT'S SO AT BEDSIDE TO VISIT. VS. SEE DOCUMENTED ASSESSMENT. NO HD TODAY. AM LABS ORDERED. PT TRANSFERRED TO ROOM 339, ALL BELONGINGS SENT WITH PT, REPORT CALLED TO NORMA HYMAN. PT'S SO RACHELL CONTACTED AND INFORMED OF PT TRANSFER TO ANOTHER ROOM.
--- NOTE | 2022-05-14 18:16 | NUR ---
pt brought to room 338 via bed from u, s.o. in attendence. he is settled in room with call light in reach, reviewed labs with him, no further needs. call light in reach.
--- NOTE | 2022-05-15 04:28 | NUR ---
NIGHTSHIFT SUMMARY Patient doing well this shift, took all medications PO w/ applesauce. Calls appropriately. Patient turned Q2H. Right facial droop noted, right hand/flicker of movement, patient able to grasp/hold with left hand. Weakness in LLE, no movement in RLE. Vitals stable, CBG WNL, no SSI needed at HS. Patient slept comfortably all night, respirations even/nonlabored. Will continue to monitor.
[2022-05-15 05:52] LABS: BASOPHILS ABSOLUTE AUTO 0.08 K/mm3 (0.00-0.23); BASOPHILS PERCENT AUTO 1 % (0-2); EOSINOPHILS ABSOLUTE AUTO 0.22 K/mm3 (0.00-0.68); EOSINOPHILS PERCENT AUTO 2 % (0-6); Hematocrit 35.4 % (37.0-53.0); Hemoglobin 11.1 g/dL (13.5-17.5); IMMATURE GRAN ABSOLUTE AUTO 0.12 K/mm3 (0.00-0.10); IMMATURE GRAN PERCENT AUTO 1 % (0-1); LYMPHOCYTES ABSOLUTE AUTO 2.38 K/mm3 (0.84-5.20); LYMPHOCYTES PERCENT AUTO 23 % (21-46); MONOCYTES ABSOLUTE AUTO 0.82 K/mm3 (0.16-1.47); MONOCYTES PERCENT AUTO 8 % (4-13); Mean Corpuscular HGB 28.8 pg (26.0-34.0); Mean Corpuscular HGB Conc 31.4 g/dL (31.5-36.5); Mean Corpuscular Volume 92 fL (80-100); Mean Platelet Volume 9.7 fL (9.1-12.4); NEUTROPHILS ABSOLUTE AUTO 6.65 K/mm3 (1.96-9.15); NEUTROPHILS PERCENT AUTO 65 % (41-73); Platelet Count 296 K/mm3 (150-400); RDW Coefficient Variation 13.2 % (11.7-14.2); RDW Standard Deviation 44.7 fL (35.1-46.3); Red Blood Cell Count 3.85 M/mm3 (4.30-5.90); White Blood Cell Count 10.27 K/mm3 (4.00-11.30)
[2022-05-15 06:26] LABS: Albumin, Blood 2.8 g/dL (3.4-5.0); Anion Gap 10 mmol/L (6-16); Blood Urea Nitrogen 26 mg/dL (8-24); Bun/Creatinine Ratio 7.1 (12.0-20.0); CO2, Blood 26 mmol/L (21-32); Calcium, Blood 8.5 mg/dL (8.5-10.1); Chloride, Blood 101 mmol/L (98-108); Creatinine, Blood 3.64 mg/dL (0.60-1.20); Glomerular Filtration Rate 20 (60-); Glucose, Blood 224 mg/dL (70-99); Phosphorus, Blood 4.3 mg/dL (2.5-4.9); Potassium, Blood 3.9 mmol/L (3.5-5.5); Sodium, Blood 137 mmol/L (136-145)
--- NOTE | 2022-05-15 09:55 | NUR ---
DR HERNÁNDEZ IN TO SEE PT THIS AM. HOPEFUL FOR D/C IF NEPHROLOGY RELEASES. REQUESTS TO CONTACT AND ADVISE. NEPHRO DID FACETIME INTERVIEW WITH PT. NEEDS DIALYSIS PERMACATH REMOVED AND OKAY TO D/C. CHECKED WITH I/R TO REMOVE. NO ONE ON DUTY THRU END OF MONTH.
--- NOTE | 2022-05-15 13:16 | NUR ---
SHANNON RUELAS, VASCULAR, CALLED. STATES OKAY WE REMOVE DIALYSIS PERMACATH WITH SURGICAL. OR IT IS OKAY TO D/C PT WITH PERMACATH AND DR CAN REMOVE LATER THIS WEEK, JUST CALL FOR SETUP. THEY DO IN OFFICE.
--- NOTE | 2022-05-15 14:22 | NUR ---
SURGICAL WAS CONTACTED FOR PERMACATH REMOVAL. ONLY DO IF IS INFECTED. IF NOT CAN GO TO DR LUBIN OFFICE. DISCUSSED WITH DR LUBIN OFFICE. AN DO IN COUPLE DAYS. CALLED DR OKENYE. [facility] TO D/C AND HAVE [facility] REMOVE THIS WEEK. CALLED HIS OF[facility]. SCHEDULED FOR REMOVAL AT 1415 ON Sun. [facility] AT [id number].
--- NOTE | 2022-05-15 16:49 | NUR ---
DISCHARGE REVIEWED WITH PT AND SPOUSE. NO NEW MEDS. THEY VERBALIZED UNDERSTANDING MEDS AND INST. OF PARTICULAR IMPORTANCE IS PERMACATH REMOVAL AT DR LUBIN OFFICE ON SUNDAY. PT ARRANGED TRANSPORT. IV PULLED INTACT X 2. NO TELE. PT DRESSED WITH HELP OF SPOUSE. PT WHEELED TO DOOR BY SPOUSE AT 1645
== END 2022-05-15 16:49 | disposition home or self-care (01) | DRG 698 ==
LOC: ER 16:33 → PCU 18:07 → MEDS 05-14 17:55
PROVIDERS: Emergency Medicine; Internal Medicine; Internal Medicine Nephrology; ADMIT Internal Medicine
PROC: 3E03329 Introduction of Other Anti-infective into Peripheral Vein, Percutaneous Approach (ICD-10-PCS; 2022-05-09)
PROC: 0JH63XZ Insertion of Tunneled Vascular Access Device into Chest Subcutaneous Tissue and Fascia, Percutaneous Approach (ICD-10-PCS; principal; 2022-05-10)
PROC: 02HV33Z Insertion of Infusion Device into Superior Vena Cava, Percutaneous Approach (ICD-10-PCS; 2022-05-10)
PROC: B5181ZA Fluoroscopy of Superior Vena Cava using Low Osmolar Contrast, Guidance (ICD-10-PCS; 2022-05-10)
PROC: 5A1D70Z Performance of Urinary Filtration, Intermittent, Less than 6 Hours Per Day (ICD-10-PCS; 2022-05-10)
DX: T83.511A Infection and inflammatory reaction due to indwelling urethral catheter, initial encounter (principal); A41.4 Sepsis due to anaerobes; E87.2 Acidosis; N17.9 Acute kidney failure, unspecified; N39.0 Urinary tract infection, site not specified; E87.5 Hyperkalemia; E11.40 Type 2 diabetes mellitus with diabetic neuropathy, unspecified; I12.9 Hypertensive chronic kidney disease with stage 1 through stage 4 chronic kidney disease, or unspecified chronic kidney disease; N18.31 Chronic kidney disease, stage 3a; D63.1 Anemia in chronic kidney disease; B96.1 Klebsiella pneumoniae [K. pneumoniae] as the cause of diseases classified elsewhere; E86.0 Dehydration; F32.A Depression, unspecified; E11.22 Type 2 diabetes mellitus with diabetic chronic kidney disease; E11.649 Type 2 diabetes mellitus with hypoglycemia without coma; N31.9 Neuromuscular dysfunction of bladder, unspecified; Z86.73 Personal history of transient ischemic attack (TIA), and cerebral infarction without residual deficits; Z87.891 Personal history of nicotine dependence; Z88.6 Allergy status to analgesic agent; Z91.048 Other nonmedicinal substance allergy status; Z79.02 Long term (current) use of antithrombotics/antiplatelets; Z79.4 Long term (current) use of insulin; Z79.82 Long term (current) use of aspirin; Z79.899 Other long term (current) drug therapy; Y84.6 Urinary catheterization as the cause of abnormal reaction of the patient, or of later complication, without mention of misadventure at the time of the procedure
CPT/HCPCS: 36415; 36558; 51702; 76770; 76937; 77001; 80048; 80053; 80069; 80074; 80202; 81001; 82728; 82947; 83540; 83550; 83970; 84100; 84132; 85025; 85027; 86317; 87077; 87086; 87186; 93005; 93010; 96365-59; 96375-59; 99152; 99153; 99285-25; A9270; C1750; C1751; C1769; C1894; J0610; J0696; J0744; J0881; J1644; J1815; J1940; J2250; J2405; J3010; J3370; J7040; J7042; J7070

== ENCOUNTER → 2022-07-20 | Outpatient (CLI) | payer OTHER ==
[~2022-07-20] MED LIST changes: +PROMETHAZINE PO
[2022-07-20 14:14] LABS: Source, Urine Clean Catch
[2022-07-20 15:51] LABS: Appearance, Urine Hazy (Clear); Bilirubin, Urine Neg (Neg); Blood, Urine 3+ (Neg); Color, Urine Yellow (P-Yellow); Glucose Qualitative, Urine 2+ (Neg); Ketones, Urine Neg (Neg); Leukocyte Esterase, Urine 2+ (Neg); Nitrite, Urine Pos (Neg); Protein, Urine 3+ (Neg); Urobilinogen, Urine NORM (Normal)
[2022-07-20 16:10] LABS: Creatinine, Urine Random 96.3 mg/dL (27.00-270.00); Protein, Urine Random 217.5 mg/dL (0.0-11.9); Protein/Creat Ratio, Ur Random 2.3
[2022-07-20 16:53] LABS: Bacteria Mod /hpf; Renal Epithelial Few /hpf (0-Rare); Squamous Epithelial Cells Rare /hpf (Few); White Blood Cells, Urine 50-100 /hpf (0-5)
[2022-07-25 14:11] LABS: M-SPIKE, % Not Observed % (Not Observed); PROTEIN,TOTAL,URINE 209.5 mg/dL (Not Estab.)
== END | disposition home or self-care (01) ==
LOC: LAB 13:00 → LAB SHORT 13:00
PROVIDERS: Internal Medicine Nephrology
DX: D47.2 Monoclonal gammopathy (principal); R80.9 Proteinuria, unspecified
CPT/HCPCS: 81001; 82570; 84156; 84166; 87077; 87086; 87186

== ENCOUNTER 2022-10-24 10:56 | Day surgery (SDC) | payer OTHER ==
[~2022-10-24] VITALS: Ht 182.9 cm; Wt 83.6 kg
[~2022-10-24 10:56] MED LIST changes: +GLIP5 PO; +LISI5 PO; +NYAMYC15 G1 TOP; +PREG75 PO; -PREGABALIN25 MG PO
[2022-10-24] MEDS ORDERED: Cyclobenzaprine5 MG PO (11:30)
[2022-10-24] MEDS ORDERED: NITROFURANTOIN5012 PO (11:32)
--- NOTE | 2022-10-24 13:09 | NUR ---
Patient arrived back to recovery room, drowsy. Suprapubic catheter in place, insertion site with stay-fix C/D/I. Catheter draining appropriately. VSS on room air. Discharge instructions reviewed with patient and surgical scheduler Chanelle. All questions were answered appropriately. Patient tolerating PO intake well. PIV removed, catheter intact.
== END 2022-10-24 13:30 | disposition home or self-care (01) ==
LOC: MHTC 10:56
DX: N31.9 Neuromuscular dysfunction of bladder, unspecified (principal); R33.9 Retention of urine, unspecified; I12.9 Hypertensive chronic kidney disease with stage 1 through stage 4 chronic kidney disease, or unspecified chronic kidney disease; N18.9 Chronic kidney disease, unspecified; E11.22 Type 2 diabetes mellitus with diabetic chronic kidney disease; E11.40 Type 2 diabetes mellitus with diabetic neuropathy, unspecified; E78.5 Hyperlipidemia, unspecified; Z87.891 Personal history of nicotine dependence; Z88.5 Allergy status to narcotic agent; Z91.048 Other nonmedicinal substance allergy status; Z79.899 Other long term (current) drug therapy; Z79.82 Long term (current) use of aspirin; Z79.4 Long term (current) use of insulin
CPT/HCPCS: 51102; 76937; 99152; 99153; C1729; C1769; J2250; J3010; J7040; Q9967

== ENCOUNTER 2023-06-21 13:57 | Inpatient (IN) | payer OTHER ==
[2023-06-21] VITALS (17 sets, daily range): BP systolic 75–110; BP diastolic 46–64
[~2023-06-21] VITALS: Ht 182.9 cm; Wt 92.7 kg
[~2023-06-21 13:57] MED LIST changes: -AMLO10 PO; -ATORVASTATIN CA80 M1 PO; -CLOP75 PO; -CYCL10 PO; -CYMBALTA60 M1 PO; -Insulin Glargine-Yfg SC; -LYRICA150 M1 PO
[2023-06-21 15:11] LABS: BASOPHILS PERCENT AUTO 1 % (0-2); EOSINOPHILS ABSOLUTE AUTO 0.01 K/mm3 (0.00-0.68); EOSINOPHILS PERCENT AUTO 0 % (0-6); Hematocrit 38.2 % (37.0-53.0); Hemoglobin 11.1 g/dL (13.5-17.5); IMMATURE GRAN ABSOLUTE AUTO 0.11 K/mm3 (0.00-0.10); IMMATURE GRAN PERCENT AUTO 1 % (0-1); LYMPHOCYTES ABSOLUTE AUTO 1.41 K/mm3 (0.84-5.20); LYMPHOCYTES PERCENT AUTO 7 % (21-46); MONOCYTES ABSOLUTE AUTO 0.95 K/mm3 (0.16-1.47); MONOCYTES PERCENT AUTO 4 % (4-13); Mean Corpuscular HGB 29.3 pg (26.0-34.0); Mean Corpuscular HGB Conc 29.1 g/dL (31.5-36.5); Mean Corpuscular Volume 101 fL (80-100); Mean Platelet Volume 10.9 fL (9.1-12.4); NEUTROPHILS ABSOLUTE AUTO 19.25 K/mm3 (1.96-9.15); NEUTROPHILS PERCENT AUTO 88 % (41-73); Platelet Count 451 K/mm3 (150-400); RDW Coefficient Variation 13.4 % (11.7-14.2); RDW Standard Deviation 50.1 fL (35.1-46.3); Red Blood Cell Count 3.79 M/mm3 (4.30-5.90); White Blood Cell Count 21.83 K/mm3 (4.00-11.30)
[2023-06-21 15:22] LABS: Albumin/Globulin Ratio 0.9 (0.8-1.8); Bilirubin, Total 0.3 mg/dL (0.1-1.0); Bun/Creatinine Ratio 10.2 (12.0-20.0); Creatinine, Blood 4.49 mg/dL (0.60-1.20); Globulin, Blood 3.4 g/dL (2.2-4.0); Potassium, Blood 6.5 mmol/L (3.5-5.5); Total Protein, Blood 6.4 g/dL (6.4-8.2)
[2023-06-21 16:45] LABS: Calcium, Ionized (POC) 1.15 mmol/L (1.10-1.46); Chloride (POC) 109 mmol/L (98-108); Creatinine (POC) 4.7 mg/dL (0.8-1.3); Glucose (ISTAT POC) 126 mg/dL (70-99); Hemoglobin (POC) 11.2 g/dL (13.5-17.5); Potassium (POC) 5.5 mmol/L (3.5-5.5); Sodium (POC) 137 mmol/L (135-148); Total CO2 (POC) 11 mmol/L (21-32)
--- NOTE | 2023-06-21 18:45 | NUR ---
ARRIVAL TO PCU PT ARRIVED TO PCU4 AT 1830 VIA [facility]. PT SLID FROM [facility] TO BED BY STAFF. LETHARGIC BUT ABLE TO COMMUNICATE NEEDS WITH STAFF. CBG ON ARRIVAL WAS 97. SODIUM BICARB W/ D5 INFUSING PER EMAR. VANCOMYCIN INFUSING AT TIME OF ARRIVAL. ATTENDS CHANGED, [address] BM[address] C[address] IN PL[address]. BP 83/52 W/ MAP 61. HR 80'S, SR. SPO2 >95% ON RA. RR 12. PT POSITIONED ON R SIDE. R SIDE W/ REPORTED DEFICITS DUE TO HX OF CVA. PT RESTING IN BED AT THIS TIME. SPOUSE AT BEDSIDE. CALL LIGHT WITHIN REACH, BED IN LOWEST POSITION. WILL REPORT TO NOC RN.
--- NOTE | 2023-06-21 19:30 | NUR ---
ASSUMPTION OF CARE PT LETHARGIC BUT ANSWERING SIMPLE QUESTIONS, Hx OF 8 CVAs IN PAST WITH ALMOST COMPLETE R SIDED DEFICIT, PT ABLE TO LIFT L ARM AND FOLLOW SIMPLE COMMANDS. AT BEDSIDE. BICARB INFUSING PER EMAR. BP SOFT, SINUS 70-80's, DENIES CP/PRESSURE. SpO2> 92% RA, DENIES SOB. SUPRAPUBIC CATH PATENT, DRAINING VERY MINIMAL, DARK URINE TO GRAVITY. THIS RN NOTIFIED OF CRITIAL LAB RESULT AT 1924- LACTIC : 13.0, WILL NOTIFY PHYSICIAN OF THIS AND BP. BED IN LOWEST POSITION, CALL LIGHT IN REACH.
--- NOTE | 2023-06-21 20:15 | NUR ---
CALL TO PHYSICIAN CALL TO GUN STOCK MAKER TO DISCUSS PT's LACTIC RESULTING 13.0 AND BP BEING 70's/50's AFTER PT HAD ALREADY RECEIVED 2,400mLs OF FLUID IN ER. GUN STOCK MAKER STATED THAT HE FELT PT NEEDED TO BE MONITORED CLOSER AND THAT PT WOULD LIKELY BENEFIT FROM LOW DOSE OF PRESSERS AND ASKED IF THIS RN WOULD RELAY THAT TO ADMITTING CALL TO ADMITTING , DISCUSSED WHAT IS STATED ABOVE. ADMITTING AGREES AND ORDERS WERE PLACED TO TRANSFER TO ICU.
--- NOTE | 2023-06-21 20:35 | NUR ---
TRANSFER TO ICU 3 SEE PREVIOUS NOTE. NO ACUTE CHANGES. BP STILL SOFT, SINUS 80's, DENIES CP/PRESSURE. SpO2> 92% RA, DENIES SOB. NOTIFIED OF TRANSFER. PT WITH INCONTINENT BM PRIOR TO TRANSFER, PERICARE AND ATTENDS CHANGE PROVIDED. TOOK ALL PT BELONGINGS HOME. REPORT GIVEN TO TEXTILE ENGRAVER. PT TRANSFERED VIA HOSPITAL BED BY THIS RN AND BEADER TENDER AT APPROXIMATELY 2034.
--- NOTE | 2023-06-21 20:45 | NUR ---
ARRIVAL TO ICU: RECEIVED REPORT FROM JEREMÍAS HYMAN. PT ARRIVED TO ICU FROM PCU AT 2044. PT SLID TO ICU BED FROM PCU BED WITH MAX ASSIST. PT ALERT AND ORIENTED TO TIME, PERSON, PLACE AND SITUATION. ABLE TO ANSWER QUESTIONS BUT MUMBLES AT TIMES, IS HARD TO UNDERSTAND AND IS DROWSY AND FALLS ASLEEP WHEN NOT STIMULATED. PLACED ON CONTINUOUS CARDIAC MONITORING WITH HR 80'S. LEVOPHED STARTED AT 2120 AT 2 MCG/MIN TO MAINTAIN MAP >65. DENIES CHEST PAIN OR PRESSURE. PT ON RA WITH SATS >95%. DENIES SOB. UNABLE TO USE RIGHT SIDE R/T PRIOR CVA. FULL MOBILITY IN LEFT SIDE. SODIUM BICARB INFUSING AT 150 ML/HR. POWERGLIDE PLACED IN LEYLA, PATENT AND INFUSING. 20 G TO LAC, INFUSING LEVOPHED. PATENT, DRAWS BACK BLOOD AND FLUSHES WELL. SUPRAPUBIC CATHETER IN PLACE, DRAINING TO GRAVITY NO URINE IN BAG YET SINCE ARRIVAL TO ICU TO SEND UA. CALL LIGHT IN REACH.
[2023-06-21] MEDS ORDERED: Insulin Glargine-Yfg SC (21:59)
[2023-06-21] MEDS ORDERED: AMLO10 PO (22:00)
[2023-06-21] MEDS ORDERED: ASPI81CH PO (22:01)
[2023-06-21] MEDS ORDERED: ATORVASTATIN CA80 M1 PO (22:02)
[2023-06-21] MEDS ORDERED: BISA10S PR (22:03)
[2023-06-21] MEDS ORDERED: CATAPRES0.1 MG PO (22:04)
[2023-06-21] MEDS ORDERED: CLOP75 PO (22:05)
[2023-06-21] MEDS ORDERED: CYCL10 PO (22:06)
[2023-06-21] MEDS ORDERED: CYMBALTA60 M1 PO (22:07)
[2023-06-21] MEDS ORDERED: GLIP5 PO (22:08)
[2023-06-21] MEDS ORDERED: LISI5 PO (22:09)
[2023-06-21] MEDS ORDERED: METO25ER PO (22:10)
[2023-06-21] MEDS ORDERED: LYRICA150 M1 PO (22:11)
[2023-06-22] VITALS (40 sets, daily range): BP systolic 93–156; BP diastolic 49–87
[2023-06-22 02:02] LABS: Source, Urine Suprapubic Cath
[2023-06-22 02:05] LABS: Bilirubin, Urine Neg (Neg); Blood, Urine 5+ (Neg); Glucose Qualitative, Urine 2+ (Neg); Ketones, Urine 2+ (Neg); Leukocyte Esterase, Urine 3+ (Neg); Nitrite, Urine Neg (Neg); Protein, Urine 4+ (Neg); Specific Gravity, Urine 1.015 (1.003-1.022); Urobilinogen, Urine NORM (Normal)
[2023-06-22 02:13] LABS: Appearance, Urine Turbid (Clear); Color, Urine Yellow (P-Yellow)
[2023-06-22 02:14] LABS: Bacteria Many /hpf; Squamous Epithelial Cells Few /hpf (Few); White Blood Cells, Urine TNTC /hpf (0-5)
[2023-06-22 02:29] LABS: U Amphetamine Screen Not Detected; U Barbituate Screen Not Detected; U Benzodiazapine Screen Not Detected; U Buprenorphine Screen Not Detected; U Cannabinoids Screen Not Detected; U Cocaine Screen Not Detected; U Methadone Screen Not Detected; U Methamphetamine Screen Not Detected; U Opiates Screen Not Detected; U Oxycodone Screen Not Detected; U Phencyclidine Screen Not Detected; U Propoxyphene Screen Not Detected
[2023-06-22 04:57] LABS: Alanine Aminotransfer (ALT/SGP 22 U/L (12-78); Albumin, Blood 2.5 g/dL (3.4-5.0); Albumin/Globulin Ratio 0.9 (0.8-1.8); Alk Phos 62 U/L (50-136); Anion Gap 18 mmol/L (6-16); Aspartate Aminotrans (AST/SGOT 17 U/L (12-37); Bilirubin, Total 0.4 mg/dL (0.1-1.0); Blood Urea Nitrogen 49 mg/dL (8-24); Bun/Creatinine Ratio 10.2 (12.0-20.0); C-REACTIVE PROTEIN, EXT RANGE 0.634 mg/dL (0.000-0.300); CO2, Blood 16 mmol/L (21-32); Calcium, Blood 8.2 mg/dL (8.5-10.1); Chloride, Blood 105 mmol/L (98-108); Creatinine, Blood 4.81 mg/dL (0.60-1.20); Globulin, Blood 2.8 g/dL (2.2-4.0); Glomerular Filtration Rate 14 (60-); Glucose, Blood 185 mg/dL (70-99); Phosphorus, Blood 7.1 mg/dL (2.5-4.9); Potassium, Blood 5.6 mmol/L (3.5-5.5); Sodium, Blood 139 mmol/L (136-145); Total Protein, Blood 5.3 g/dL (6.4-8.2); Vancomycin, Random 22.9 ug/mL
[2023-06-22 05:17] LABS: BASOPHILS ABSOLUTE AUTO 0.03 K/mm3 (0.00-0.23); BASOPHILS PERCENT AUTO 0 % (0-2); EOSINOPHILS ABSOLUTE AUTO 0.01 K/mm3 (0.00-0.68); EOSINOPHILS PERCENT AUTO 0 % (0-6); Hematocrit 30.2 % (37.0-53.0); Hemoglobin 9.4 g/dL (13.5-17.5); IMMATURE GRAN ABSOLUTE AUTO 0.05 K/mm3 (0.00-0.10); IMMATURE GRAN PERCENT AUTO 0 % (0-1); LYMPHOCYTES ABSOLUTE AUTO 2.28 K/mm3 (0.84-5.20); LYMPHOCYTES PERCENT AUTO 20 % (21-46); MONOCYTES ABSOLUTE AUTO 1.02 K/mm3 (0.16-1.47); MONOCYTES PERCENT AUTO 9 % (4-13); Mean Corpuscular HGB 29.5 pg (26.0-34.0); Mean Corpuscular HGB Conc 31.1 g/dL (31.5-36.5); Mean Platelet Volume 11.3 fL (9.1-12.4); NEUTROPHILS ABSOLUTE AUTO 7.85 K/mm3 (1.96-9.15); NEUTROPHILS PERCENT AUTO 70 % (41-73); Platelet Count 336 K/mm3 (150-400); RDW Coefficient Variation 13.4 % (11.7-14.2); RDW Standard Deviation 46.3 fL (35.1-46.3); Red Blood Cell Count 3.19 M/mm3 (4.30-5.90); White Blood Cell Count 11.24 K/mm3 (4.00-11.30)
[2023-06-22 05:22] LABS: Mean Corpuscular Volume 95 fL (80-100)
--- NOTE | 2023-06-22 06:29 | NUR ---
SHIFT SUMMARY: PT REMAINS ALERT AND ORIENTED X4 T/O THE SHIFT. PT VERY SLEEPY AND FALLS ASLEEP QUICKLY WHEN NOT STIMULATED. ABLE TO ANSWER QUESTIONS ALTHOUGH HE MUMBLES AT TIMES AND IS HARD TO UNDERSTAND. PT ON RA WITH SPO2 >95%, DENIES SOB. CARDIAC MONITORING SHOWS SR WITH RATE 80'S. LEVOPHED REMAINS ON SB. MAP MAINTAINING >65. DENIES CHEST PAIN OR PRESSURE. CHRONIC SUPRAPUBIC CATH IN PLACE, VERY MINIMAL URINE OUTPUT T/O THE SHIFT. NO BM THIS SHIFT. PIV REMAIN INTACT, SALINE LOCKED. POWERGLIDE TO LEYLA, INFUSING. BICARB INFUSING AT 150 ML/HR. CALL LIGHT IN REACH.
--- NOTE | 2023-06-22 09:51 | NUR ---
"Spiritual Care Visit | Pt. request Pt. is awake in bed when he welcomes my visit. Pt. speaks very softly so it is is difficult to understand, but we are able to communicate as this prism inspector focuses on the Pts. words, Pt. is unsettled about the possibility of going back on dialysis. Listen with empthay and a calming presence. Seek to normalize the Pt. experience. Prayed with Pt. Pt. verbalized gratitude for the spiritual care visit."
--- NOTE | 2023-06-22 16:45 | NUR ---
TRANSFER TO 361 REPORT CALLED VIA PHONE, ALL QUESTIONS ANSWERED. PT TAKEN TO 361 VIA BED. ALL PT BELONGINGS AND MEDS TAKEN WITH PT. PT SPOUSE AT BEDSIDE UPON TRANSFER.
--- NOTE | 2023-06-22 20:14 | NUR ---
SHIFT SUMMARY- PT TRANSFERED TO MEDICAL FLOOR AT 1700. Q2 TURN Q6 BG, PT CAN USE THE TITO LIGHT, SPOUSE AT THE BEDSIDE AT THE TIME OFTRANSFER BUT PT SENT HER HOME PRIOR TO SHIFT CHANGE. PT WAS ABLE TO FEED HIMSELF DINNER HUMAN GEOGRAPHY INSTRUCTOR SUPERVISED FOR SAFETY. RIGHT SIDE FACIAL DROOP AND RIGHT ARM AND LEG FLACID. PT REQUESTS TO BE PLACED IN A POSITION AND THEN WANTS TO MOVE AGAIN WITHIN 5 MINUTES. Q2 TURNS WOULD BE BENIFICIAL, GIVEN THE PT IMMOBILITY. PT REPOSITIONED 5 TIMES IN THE TWO HOURS SINCE ARRIVAL, BEDSIDE REPORT COMPLETED WITH NIGHT RN. HE IS AWARE OF THE PT NEED FOR FREQUENT POSITION CHANGES. NO S&S OF DISTRESS NOTED AT THE TIME OF BEDSIDE REPORT.
[2023-06-23 03:03] VITALS: BP 145/75
[2023-06-23 05:45] LABS: Albumin, Blood 2.6 g/dL (3.4-5.0); Anion Gap 13 mmol/L (6-16); Blood Urea Nitrogen 54 mg/dL (8-24); Bun/Creatinine Ratio 8.7 (12.0-20.0); CO2, Blood 25 mmol/L (21-32); Calcium, Blood 8.4 mg/dL (8.5-10.1); Chloride, Blood 98 mmol/L (98-108); Creatinine, Blood 6.19 mg/dL (0.60-1.20); Glomerular Filtration Rate 10 (60-); Glucose, Blood 75 mg/dL (70-99); Phosphorus, Blood 5.7 mg/dL (2.5-4.9); Sodium, Blood 136 mmol/L (136-145); Vancomycin, Random 22.9 ug/mL
--- NOTE | 2023-06-23 06:46 | NUR ---
Shift Summary Pt has L+R deficits from hx of CVAs, R deficits being worse. Q2 turns, sometimes more often per patient's requests. Superpubic catheter patent. Pt AOx4. Q6 bloodsugar checks, pt was hypoglycemic this AM with BG of 68, given applejuice.
[2023-06-23 07:48] VITALS: BP 141/77
--- NOTE | 2023-06-23 18:09 | NUR ---
SHIFT SUMMARY PT BLOOD GLUCOSE IMPROVED T/O SHIFT. NO OTHER ACUTE CHANGES THIS SHIFT. CALL LIGHT WITHIN REACH AND PT ABLE TO MAKE NEEDS KNOWN. PLAN FOR DIALYSIS SUNDAY.
[2023-06-23 19:58] VITALS: BP 165/90
[2023-06-24 04:04] VITALS: BP 181/90
--- NOTE | 2023-06-24 04:58 | NUR ---
SHIFT SUMMARY: PT IS ADMITTED FOR SEPSIS AND IS A FULL CODE. IS ALERT AND ABLE TO MAKE NEEDS KNOWN. HX OF CVA MAKING COMMUNICATION A BIT TEDIOUS AT TIMES. SPEECH IS SLOW AND MUDDLED BUT ABLE TO SPEAK HIS THOUGHT GIVEN TIME. RIGHT SIDE NEAR TOTAL DEFICIT . ABLE TO DO A COUPLE GROSS MOTOR MOVEMENTS WITH UPPER EXT. LEFT SIDE DOES HAVE MORE DEXTERITY AND MOTOR MOVEMENTS BUT LIMITATIONS ARE STILL NOTED. 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 DOES HAVE A FOLLEY THAT IS DRAINING CLEAR GABINO URINE. SOME SEDIMENT NOTED. TELLY REPORT SINUS AT 81. GAVE ORDER FOR ONE TIME HYDRALAZINE IV PUSH FOR ELEVATED BP. RN ADMINISTERED .
[2023-06-24 05:29] VITALS: BP 165/81
[2023-06-24 05:30] LABS: Albumin, Blood 2.6 g/dL (3.4-5.0); Anion Gap 14 mmol/L (6-16); Blood Urea Nitrogen 59 mg/dL (8-24); CO2, Blood 23 mmol/L (21-32); Calcium, Blood 8.3 mg/dL (8.5-10.1); Chloride, Blood 97 mmol/L (98-108); Creatinine, Blood 7.33 mg/dL (0.60-1.20); Glomerular Filtration Rate 8 (60-); Glucose, Blood 95 mg/dL (70-99); Phosphorus, Blood 5.7 mg/dL (2.5-4.9); Potassium, Blood 5.2 mmol/L (3.5-5.5); Sodium, Blood 134 mmol/L (136-145); Vancomycin, Random 19.6 ug/mL
[2023-06-24 07:27] VITALS: BP 140/86
--- NOTE | 2023-06-24 13:06 | NUR ---
PATIENT HAD EPISODE OF CHOKING DURING LUNCH. WAS ABLE TO COUGH, EXPECTORATED COOKED CARROTS AND SOME OTHER FOOD. COUGHED FOR ~ 10 MINUTES. O2 SAT NEVER WENT BELOW 94%; AT RESOLUTION OF COUGHING, O2 SAT WAS 98% ON ROOM AIR. CALLED DR. HERNÁNDEZ TO NOTIFY; RECEIVED TELEPHONE ORDER FOR PORTABLE CXR AND SPEECH THERAPY EVAL FOR TOMORROW. AT BEDSIDE AT THIS TIME.
[2023-06-24 16:02] VITALS: BP 153/96
--- NOTE | 2023-06-24 17:35 | NUR ---
SHIFT SUMMARY: NO INCREASE IN OXYGEN NEEDS SINCE CHOKING EPISODE AT LUNCH, IS ON ROOM AIR WITH SATS > 92%. DENIES PAIN, BUT ENDORSES THAT BED IS UNCOMFORTABLE FOR HIM. NO EVENTS ON TELEMETRY, SR 80'S. INDWELLING URINARY CATHETER DRAINING ADEQUATE, PALE YELLOW URINE. CBG > 100, IS EATING WELL BUT DID NOT REQUIRE INSULIN. HAD VISIT FROM HIS S.O. AND OTHER FAMILY TODAY, WHICH LIFTED HIS SPIRITS.
[2023-06-24 20:14] VITALS: BP 155/87
[2023-06-25 02:59] VITALS: BP 190/93
--- NOTE | 2023-06-25 04:29 | NUR ---
SHIFT SUMMARY CHEKO WAS ALERT AND FULLY ORIENTED AT START OF SHIFT. HE DID NOT SLEEP WELL, AND WOULD LIKE TO SEE IF HE CAN GET AN ORDER FOR SOMETHING TO HELP HIM SLEEP TOMORROW NIGHT IF HE IS HERE STILL. PT'S EARLY AM BP WAS HIGH (190'S/90'S) DR. ARZATE NOTIFIED, ONE TIME ORDER FOR HYDRALAZINE ADMINISTERED, WILL REASSESS AND CONTINE TO MONITOR. FREQUENT PT REPOSITIONING. PT CURRENTLY RESTING IN BED AT A LOW POSITION WITH THE CALL LIGHT IN PLACE.
[2023-06-25 04:51] LABS: BASOPHILS ABSOLUTE AUTO 0.06 K/mm3 (0.00-0.23); BASOPHILS PERCENT AUTO 1 % (0-2); EOSINOPHILS ABSOLUTE AUTO 0.11 K/mm3 (0.00-0.68); EOSINOPHILS PERCENT AUTO 1 % (0-6); Hematocrit 33.5 % (37.0-53.0); Hemoglobin 10.7 g/dL (13.5-17.5); IMMATURE GRAN ABSOLUTE AUTO 0.09 K/mm3 (0.00-0.10); IMMATURE GRAN PERCENT AUTO 1 % (0-1); LYMPHOCYTES ABSOLUTE AUTO 1.43 K/mm3 (0.84-5.20); LYMPHOCYTES PERCENT AUTO 16 % (21-46); MONOCYTES ABSOLUTE AUTO 0.86 K/mm3 (0.16-1.47); MONOCYTES PERCENT AUTO 10 % (4-13); Mean Corpuscular HGB 28.2 pg (26.0-34.0); Mean Corpuscular HGB Conc 31.9 g/dL (31.5-36.5); Mean Platelet Volume 11.1 fL (9.1-12.4); NEUTROPHILS ABSOLUTE AUTO 6.23 K/mm3 (1.96-9.15); NEUTROPHILS PERCENT AUTO 71 % (41-73); Platelet Count 324 K/mm3 (150-400); RDW Coefficient Variation 13.4 % (11.7-14.2); RDW Standard Deviation 43.8 fL (35.1-46.3); White Blood Cell Count 8.78 K/mm3 (4.00-11.30)
[2023-06-25 04:55] LABS: Mean Corpuscular Volume 88 fL (80-100)
[2023-06-25 05:25] LABS: Percent Saturation 32.2 % (20.0-50.0)
[2023-06-25 05:35] LABS: Albumin, Blood 2.6 g/dL (3.4-5.0); Albumin/Globulin Ratio 0.8 (0.8-1.8); Bilirubin, Total 0.6 mg/dL (0.1-1.0); Calcium, Blood 8.5 mg/dL (8.5-10.1); Globulin, Blood 3.4 g/dL (2.2-4.0); Phosphorus, Blood 6.1 mg/dL (2.5-4.9); Potassium, Blood 5.4 mmol/L (3.5-5.5)
[2023-06-25 05:42] LABS: Bun/Creatinine Ratio 7.6 (12.0-20.0); Creatinine, Blood 8.57 mg/dL (0.60-1.20)
[2023-06-25 05:58] VITALS: BP 157/87
[2023-06-25 07:10] VITALS: BP 125/83
[2023-06-25 14:13] VITALS: BP 172/100
[2023-06-25 15:32] VITALS: BP 149/83
--- NOTE | 2023-06-25 19:25 | NUR ---
SHIFT SUMMARY: PT A/O X 4, BEDREST. PLEASANT AND COOPERATIVE WITH CARE. PT ON RA, POOR APPETITE. SPEECH THERAPY EVALUATED PT AND PLACED PT ON [facility] SOFT DIET NO MIXED CONSISTENCIES. AT DINNER TIME PT CHOKED ON THE BEEF STEW. PT WAS ABLE TO COUGH AND CLEAR FOOD FROM THROAT. FOOD WAS CHOPPED INTO FINE PIECES AND PT DID BETTER AT FIRST WITH PROMPTING BUT STILL HAD DIFFICULTY WITH CHOKING. PT DIET CHANGED TO PUREE RENAL DIET. PT DID NOT EAT LUNCH. PT C/O OF FEELING ACHY THIS AM AND FLEXERIL WAS GIVEN AND HE HAD NO FURTHER COMPLAINTS. SUPRAPUBIC CATHETER PATENT AND DRAINING CLEAR YELLOW URINE WITH OUTPUT OF 2200 TODAY. WITH CATH CARE NOTED SMALL AMOUNT OF PURULENT DRAINAGE AT INSERTION SITE.
[2023-06-25 19:29] VITALS: BP 151/83
--- NOTE | 2023-06-26 04:05 | NUR ---
SHIFT SUMMARY CHEKO WAS ALERT AND FULLY ORIENTED AT THE START OF THE SHIFT. HIS LARGEST COMPLAINT AT ASSESSMENT IS INABILLITY TO SLEEP, PT DID NOT SLEEP AT ALL PREVIOUS NIGHT, AND ONLY MANAGED A SHORT NAP ON DAY SHIFT. DR SWANSON CONTACTED, ORDER FOR AMBIEN AND MELATONIN PLACED. PT SLEPT VERY WELL ALL NIGHT AFTER ADMINISTRATION OF MELATONIN AND FLEXERIL. PT REPOSITIONED FREQUENTLY. HE IS CURRENTLY RESTING IN BED WITH CALL LIGHT IN REACH. NO ACUTE EVENTS THIS SHIFT.
[2023-06-26 05:31] VITALS: BP 127/87
[2023-06-26 07:20] LABS: BASOPHILS ABSOLUTE AUTO 0.06 K/mm3 (0.00-0.23); BASOPHILS PERCENT AUTO 1 % (0-2); EOSINOPHILS ABSOLUTE AUTO 0.16 K/mm3 (0.00-0.68); EOSINOPHILS PERCENT AUTO 2 % (0-6); Hematocrit 32.4 % (37.0-53.0); Hemoglobin 10.6 g/dL (13.5-17.5); IMMATURE GRAN ABSOLUTE AUTO 0.04 K/mm3 (0.00-0.10); IMMATURE GRAN PERCENT AUTO 1 % (0-1); LYMPHOCYTES ABSOLUTE AUTO 1.42 K/mm3 (0.84-5.20); LYMPHOCYTES PERCENT AUTO 20 % (21-46); MONOCYTES ABSOLUTE AUTO 0.81 K/mm3 (0.16-1.47); MONOCYTES PERCENT AUTO 11 % (4-13); Mean Corpuscular HGB 28.6 pg (26.0-34.0); Mean Corpuscular HGB Conc 32.7 g/dL (31.5-36.5); Mean Corpuscular Volume 88 fL (80-100); Mean Platelet Volume 11.3 fL (9.1-12.4); NEUTROPHILS ABSOLUTE AUTO 4.71 K/mm3 (1.96-9.15); NEUTROPHILS PERCENT AUTO 65 % (41-73); Platelet Count 274 K/mm3 (150-400); RDW Coefficient Variation 13.7 % (11.7-14.2); RDW Standard Deviation 43.9 fL (35.1-46.3)
[2023-06-26 07:37] VITALS: BP 115/83
[2023-06-26 08:08] LABS: Albumin, Blood 2.5 g/dL (3.4-5.0); Albumin/Globulin Ratio 0.7 (0.8-1.8); Bilirubin, Total 0.6 mg/dL (0.1-1.0); Bun/Creatinine Ratio 7.5 (12.0-20.0); Calcium, Blood 8.5 mg/dL (8.5-10.1); Creatinine, Blood 9.36 mg/dL (0.60-1.20); Globulin, Blood 3.5 g/dL (2.2-4.0); Phosphorus, Blood 6.5 mg/dL (2.5-4.9); Potassium, Blood 5.5 mmol/L (3.5-5.5)
[2023-06-26 15:14] VITALS: BP 118/79
--- NOTE | 2023-06-26 15:33 | NUR ---
Pt. is awake in bed and welcomes this umbrella frame maker's visit. Pt. is hard to understand but verbalizes that he has been tired and groggy. Facilitated a life review focusing on his family. He has a blanket, and the Pt. verbalizes that the images on the blanket are his grandchildren. Listen with empathy and interest. Pt. displays evidence of being guarded, and feining exhaustion. Prayed with Pt. Pt. verbalized gratitude for the spiritual care visit.
--- NOTE | 2023-06-26 18:14 | NUR ---
SHIFT SUMMARY: PT A/O X 4, BEDBOUND AT BASELINE, PLEASANT AND COOPERATIVE. R SIDE FLACCID AT BASELINE. PT TOLERATING PUREE DIET WELL WITH NO CHOKING EPISODES. CONTINUES TO PRODUCE CLEAR YELLOW URINE. NO BM IN 4 DAYS. PER PT USUALLY NEEDS SUPPOSITORY TO AID IN HAVING A BM IF NONE BY DAY 5. PER PT HE WANTED TO ATTEMPT TO HAVE BM ON HIS OWN TODAY. PT DECLINED PRUNE JUICE. EDUCATED PT ON IMPORTANCE OF HAVING BM TO PREVENT SEVERE CONSTIPATION. PT VU. SUPRAPUBIC CATHETER WAS CHANGED THIS EVENING AND URINE SAMPLE SENT FOR TESTING. IN ROOM WITH PT NOW AND ASSISTING WITH FEEDING. UPDATED WITH POC. DR. Huertas IN THIS EVENING AND ALSO SPOKE TO PT AND FAMILY. PER DR. HUERTAS WE WILL CONTINUE TO WAIT FOR KIDNEY FUNCTION TO IMPROVE. NO DIALYSIS UNLESS PT HAS AMS OR DEVELOPS HYPERKALEMIA.
[2023-06-26 18:19] LABS: Source, Urine Suprapubic Cath
[2023-06-26 18:29] LABS: Appearance, Urine Clear (Clear); Bilirubin, Urine Neg (Neg); Blood, Urine 4+ (Neg); Color, Urine Yellow (P-Yellow); Glucose Qualitative, Urine 3+ (Neg); Ketones, Urine Neg (Neg); Leukocyte Esterase, Urine Neg (Neg); Nitrite, Urine Neg (Neg); Protein, Urine 3+ (Neg); Specific Gravity, Urine 1.015 (1.003-1.022); Urobilinogen, Urine NORM (Normal)
[2023-06-26 19:15] LABS: Squamous Epithelial Cells Rare /hpf (Few)
[2023-06-26 19:16] LABS: Bacteria Rare /hpf; Transitional Epithelial Cells Rare /hpf (0-Rare)
[2023-06-26 19:56] VITALS: BP 102/72
[2023-06-27 02:34] VITALS: BP 97/71
--- NOTE | 2023-06-27 04:58 | NUR ---
SHIFT SUMMARY. PATIENT IS A/O X4. PATIENT IS PLEASANT AND COOPERATIVE WITH CARE. PATIENT REPOSITIONED. PATIENT ABLE TO MAKE HIS NEEDS KNOWN. NO ACUTE CHANGES THIS SHIFT. BED IS LOCKED IN THE LOWEST POSITION WITH CALL LIGHT IN REACH.
[2023-06-27 05:41] LABS: BASOPHILS ABSOLUTE AUTO 0.04 K/mm3 (0.00-0.23); BASOPHILS PERCENT AUTO 1 % (0-2); EOSINOPHILS ABSOLUTE AUTO 0.27 K/mm3 (0.00-0.68); EOSINOPHILS PERCENT AUTO 3 % (0-6); Hemoglobin 10.4 g/dL (13.5-17.5); IMMATURE GRAN ABSOLUTE AUTO 0.05 K/mm3 (0.00-0.10); IMMATURE GRAN PERCENT AUTO 1 % (0-1); LYMPHOCYTES ABSOLUTE AUTO 2.21 K/mm3 (0.84-5.20); LYMPHOCYTES PERCENT AUTO 27 % (21-46); MONOCYTES ABSOLUTE AUTO 0.91 K/mm3 (0.16-1.47); MONOCYTES PERCENT AUTO 11 % (4-13); Mean Corpuscular HGB 28.7 pg (26.0-34.0); Mean Corpuscular HGB Conc 32.5 g/dL (31.5-36.5); Mean Corpuscular Volume 88 fL (80-100); Mean Platelet Volume 11.1 fL (9.1-12.4); NEUTROPHILS ABSOLUTE AUTO 4.67 K/mm3 (1.96-9.15); NEUTROPHILS PERCENT AUTO 57 % (41-73); Platelet Count 248 K/mm3 (150-400); RDW Coefficient Variation 13.8 % (11.7-14.2); RDW Standard Deviation 44.3 fL (35.1-46.3); Red Blood Cell Count 3.62 M/mm3 (4.30-5.90); White Blood Cell Count 8.15 K/mm3 (4.00-11.30)
[2023-06-27 06:23] LABS: Albumin, Blood 2.6 g/dL (3.4-5.0); Albumin/Globulin Ratio 0.7 (0.8-1.8); Bilirubin, Total 0.7 mg/dL (0.1-1.0); Calcium, Blood 8.5 mg/dL (8.5-10.1); Globulin, Blood 3.6 g/dL (2.2-4.0); Phosphorus, Blood 5.5 mg/dL (2.5-4.9); Potassium, Blood 4.9 mmol/L (3.5-5.5); Total Protein, Blood 6.2 g/dL (6.4-8.2)
[2023-06-27 06:24] LABS: Creatinine, Blood 9.48 mg/dL (0.60-1.20)
[2023-06-27 07:51] VITALS: BP 115/77
[2023-06-27 14:59] VITALS: BP 108/69
--- NOTE | 2023-06-27 16:28 | NUR ---
CALLED [facility] REGARDING PT'S REFERRAL. [employer] STAFF MEMBER STATED THAT PT IS BEING ADMITTED TOMORROW AND THEY WILL BE ABLE TO DRAW PT'S LABS ON SUNDAY. UPDATED PT AND FAMILY.
--- NOTE | 2023-06-27 16:48 | NUR ---
DISCUSSED DISCHARGE INSTRUCTIONS WITH PT AND SIGNIFICANT OTHER, WRITTEN INSTRUCTIONS SENT HOME WITH PT. PT TRANSPORTED HOME VIA GURNEY. ALL PERSONAL BELONGINGS SENT HOME WITH PT, PT'S SIGNIFICANT OTHER TOOK BELONGINGS.
== END 2023-06-27 16:45 | disposition home health service (06) | DRG 871 ==
LOC: ER 13:57 → MEDS 17:07 → ICUE 17:07 → PCU 17:07 → ICUE 20:45 → MEDS 06-22 16:38
PROVIDERS: Family Medicine; Hospitalist; Internal Medicine; Student in an Organized Health Care Education/Training Program; ADMIT Family Medicine
PROC: 3E03329 Introduction of Other Anti-infective into Peripheral Vein, Percutaneous Approach (ICD-10-PCS; principal; 2023-06-21)
PROC: 3E033XZ Introduction of Vasopressor into Peripheral Vein, Percutaneous Approach (ICD-10-PCS; 2023-06-21)
DX: A41.9 Sepsis, unspecified organism (principal); N17.0 Acute kidney failure with tubular necrosis; T83.89XA Other specified complication of genitourinary prosthetic devices, implants and grafts, initial encounter; I69.351 Hemiplegia and hemiparesis following cerebral infarction affecting right dominant side; E87.20 Acidosis, unspecified; N13.8 Other obstructive and reflux uropathy; E87.1 Hypo-osmolality and hyponatremia; T83.510A Infection and inflammatory reaction due to cystostomy catheter, initial encounter; Z66 Do not resuscitate; E87.5 Hyperkalemia; I12.9 Hypertensive chronic kidney disease with stage 1 through stage 4 chronic kidney disease, or unspecified chronic kidney disease; E11.22 Type 2 diabetes mellitus with diabetic chronic kidney disease; N31.9 Neuromuscular dysfunction of bladder, unspecified; N18.31 Chronic kidney disease, stage 3a; E11.40 Type 2 diabetes mellitus with diabetic neuropathy, unspecified; F32.9 Major depressive disorder, single episode, unspecified; D63.1 Anemia in chronic kidney disease; E11.649 Type 2 diabetes mellitus with hypoglycemia without coma; R65.20 Severe sepsis without septic shock; E83.39 Other disorders of phosphorus metabolism; I69.391 Dysphagia following cerebral infarction; Z88.5 Allergy status to narcotic agent; Z79.4 Long term (current) use of insulin; Z79.82 Long term (current) use of aspirin; Z79.02 Long term (current) use of antithrombotics/antiplatelets; Z79.84 Long term (current) use of oral hypoglycemic drugs; I69.398 Other sequelae of cerebral infarction; Z74.01 Bed confinement status
CPT/HCPCS: 36415; 71045; 76770; 80047; 80053; 80069; 80202; 81001; 82947; 83540; 83550; 83605; 83735; 84100; 84145; 85014; 85025; 85651; 86140; 87040; 87086; 92610; 93005; 93010; 94644; 94664; 96365; 96366; 96367; 96375; 96376; 97165; 97530; 99285-25; A9270; C1751; J0360; J0612; J0692; J1644; J1815; J3370; J7030; J7050; J7060; J7070; J7799

== ENCOUNTER → 2023-06-21 | Outpatient (CLI) | payer OTHER ==
[~2023-06-21] MED LIST changes: +AMLO10 PO; +ATORVASTATIN CA80 M1 PO; +CLOP75 PO; +CYCL10 PO; +CYMBALTA60 M1 PO; +Cyclobenzaprine5 MG PO; +Insulin Glargine-Yfg SC; +LYRICA150 M1 PO; +NITROFURANTOIN5012 PO
[2023-06-22 10:43] LABS: Campylobacter Sp Not Detected (NOT DETECT); Cryptosporidium Not Detected (NOT DETECT); Cyclospora Cayetanensis Not Detected (NOT DETECT); E. Coli O157 Not Detected (NOT DETECT); Entamoeba Histolytica Not Detected (NOT DETECT); Enteroaggregative E. coli-EAEC Not Detected (NOT DETECT); Enteropathogenic E. coli-EPEC Not Detected (NOT DETECT); Enterotoxigenic E. coli-ETEC Not Detected (NOT DETECT); Giardia Lamblia Not Detected (NOT DETECT); Plesiomonas Shigelloides Not Detected (NOT DETECT); Salmonella Sp Not Detected (NOT DETECT); Shiga Toxin-prod E. coli-STEC Not Detected (NOT DETECT); Shigella/Enteroin E. coli-EIEC Not Detected (NOT DETECT); Vibrio Cholerae Not Detected (NOT DETECT); Vibrio Sp Not Detected (NOT DETECT); Yersinia Enterocolitica Not Detected (NOT DETECT)
[2023-06-22 10:44] LABS: Adenovirus F 40/41 Not Detected (NOT DETECT); Astrovirus Not Detected (NOT DETECT); Norovirus GI/GII Not Detected (NOT DETECT); Rotavirus A Not Detected (NOT DETECT); Sapovirus Not Detected (NOT DETECT)
== END ==
LOC: LAB SHORT 16:52 → LAB 16:52
PROVIDERS: Family Medicine
DX: A07.8 Other specified protozoal intestinal diseases (principal)
CPT/HCPCS: 87507

== ENCOUNTER → 2023-07-05 | Outpatient (CLI) | payer OTHER ==
[~2023-07-05] MED LIST changes: +AMLO10 PO; +ATORVASTATIN CA80 M1 PO; +CLOP75 PO; +CYCL10 PO; +CYMBALTA60 M1 PO; +Insulin Glargine-Yfg SC; +LYRICA150 M1 PO
[2023-07-05 15:43] LABS: BASOPHILS ABSOLUTE AUTO 0.09 K/mm3 (0.00-0.23); BASOPHILS PERCENT AUTO 1 % (0-2); EOSINOPHILS ABSOLUTE AUTO 0.24 K/mm3 (0.00-0.68); EOSINOPHILS PERCENT AUTO 2 % (0-6); Hematocrit 33.7 % (37.0-53.0); Hemoglobin 10.4 g/dL (13.5-17.5); IMMATURE GRAN ABSOLUTE AUTO 0.11 K/mm3 (0.00-0.10); IMMATURE GRAN PERCENT AUTO 1 % (0-1); LYMPHOCYTES ABSOLUTE AUTO 2.36 K/mm3 (0.84-5.20); LYMPHOCYTES PERCENT AUTO 23 % (21-46); MONOCYTES ABSOLUTE AUTO 0.64 K/mm3 (0.16-1.47); MONOCYTES PERCENT AUTO 6 % (4-13); Mean Corpuscular HGB 28.9 pg (26.0-34.0); Mean Corpuscular HGB Conc 30.9 g/dL (31.5-36.5); Mean Corpuscular Volume 94 fL (80-100); Mean Platelet Volume 11.4 fL (9.1-12.4); NEUTROPHILS ABSOLUTE AUTO 6.83 K/mm3 (1.96-9.15); NEUTROPHILS PERCENT AUTO 67 % (41-73); Platelet Count 298 K/mm3 (150-400); RDW Coefficient Variation 14.4 % (11.7-14.2); RDW Standard Deviation 48.5 fL (35.1-46.3); White Blood Cell Count 10.27 K/mm3 (4.00-11.30)
[2023-07-05 17:20] LABS: Albumin, Blood 3.1 g/dL (3.4-5.0); Albumin/Globulin Ratio 0.8 (0.8-1.8); Alk Phos 74 U/L (50-136); Anion Gap 9 mmol/L (6-16); Aspartate Aminotrans (AST/SGOT 28 U/L (12-37); Bilirubin, Direct <0.1 mg/dL (0.0-0.3); Bilirubin, Indirect Unable to Calculate mg/dL (0.1-0.7); Bilirubin, Total 0.2 mg/dL (0.1-1.0); Blood Urea Nitrogen 40 mg/dL (8-24); Bun/Creatinine Ratio 21.9 (12.0-20.0); CO2, Blood 26 mmol/L (21-32); Calcium, Blood 8.8 mg/dL (8.5-10.1); Chloride, Blood 104 mmol/L (98-108); Creatinine, Blood 1.83 mg/dL (0.60-1.20); Globulin, Blood 3.9 g/dL (2.2-4.0); Glomerular Filtration Rate 44 (60-); Glucose, Blood 330 mg/dL (70-99); Phosphorus, Blood 3.6 mg/dL (2.5-4.9); Potassium, Blood 3.9 mmol/L (3.5-5.5); Sodium, Blood 139 mmol/L (136-145)
[2023-07-05 17:41] LABS: Alanine Aminotransfer (ALT/SGP 47 U/L (12-78)
== END | disposition home or self-care (01) ==
LOC: LAB 14:34 → LAB SHORT 14:34
PROVIDERS: Family Medicine
DX: N17.0 Acute kidney failure with tubular necrosis (principal)
CPT/HCPCS: 80053; 82248; 84100; 85025

== ENCOUNTER 2024-03-21 10:32 | Emergency (ER) | payer OTHER ==
[~2024-03-21] VITALS: Ht 182.9 cm; Wt 101.6 kg
[2024-03-21 10:58] LABS: BASOPHILS ABSOLUTE AUTO 0.06 K/mm3 (0.00-0.23); BASOPHILS PERCENT AUTO 0 % (0-2); EOSINOPHILS ABSOLUTE AUTO 0.24 K/mm3 (0.00-0.68); EOSINOPHILS PERCENT AUTO 2 % (0-6); Hematocrit 45.7 % (37.0-53.0); Hemoglobin 14.2 g/dL (13.5-17.5); IMMATURE GRAN ABSOLUTE AUTO 0.07 K/mm3 (0.00-0.10); IMMATURE GRAN PERCENT AUTO 1 % (0-1); LYMPHOCYTES ABSOLUTE AUTO 1.64 K/mm3 (0.84-5.20); LYMPHOCYTES PERCENT AUTO 11 % (21-46); MONOCYTES PERCENT AUTO 4 % (4-13); Mean Corpuscular HGB 27.7 pg (26.0-34.0); Mean Corpuscular HGB Conc 31.1 g/dL (31.5-36.5); Mean Corpuscular Volume 89 fL (80-100); Mean Platelet Volume 10.7 fL (9.1-12.4); NEUTROPHILS ABSOLUTE AUTO 12.58 K/mm3 (1.96-9.15); NEUTROPHILS PERCENT AUTO 83 % (41-73); Platelet Count 185 K/mm3 (150-400); RDW Coefficient Variation 15.1 % (11.7-14.2); RDW Standard Deviation 49.9 fL (35.1-46.3); Red Blood Cell Count 5.12 M/mm3 (4.30-5.90); White Blood Cell Count 15.19 K/mm3 (4.00-11.30)
[2024-03-21 11:13] LABS: Albumin, Blood 3.5 g/dL (3.4-5.0); Albumin/Globulin Ratio 0.9 (0.8-1.8); Bilirubin, Total 0.6 mg/dL (0.1-1.0); Bun/Creatinine Ratio 11.2 (12.0-20.0); Calcium, Blood 9.1 mg/dL (8.5-10.1); Creatinine, Blood 2.32 mg/dL (0.60-1.20); Globulin, Blood 3.9 g/dL (2.2-4.0); Potassium, Blood 5.1 mmol/L (3.5-5.5); Total Protein, Blood 7.4 g/dL (6.4-8.2)
[2024-03-21] MEDS ORDERED: Ondansetron HCl 2 MG / ML 2ML Vial IV ONE (11:15)
[2024-03-21] MEDS ORDERED: Lactated Ringer's 1,000 ML IV ONE (11:15)
[2024-03-21 11:45] LABS: International Normalized Ratio 0.98; Prothrombin Time Results 10.5 Sec (9.7-11.5)
[2024-03-21 12:16] LABS: Source, Urine Suprapubic Cath
[2024-03-21 12:20] LABS: Appearance, Urine Hazy (Clear); Bilirubin, Urine Neg (Neg); Blood, Urine 4+ (Neg); Glucose Qualitative, Urine 4+ (Neg); Ketones, Urine Neg (Neg); Leukocyte Esterase, Urine 2+ (Neg); Nitrite, Urine Neg (Neg); Protein, Urine 2+ (Neg); Specific Gravity, Urine 1.015 (1.003-1.022); Urobilinogen, Urine NORM (Normal)
[2024-03-21 12:28] LABS: Color, Urine Pale Yellow (P-Yellow)
[2024-03-21 12:29] LABS: Red Blood Cells, Urine 25-50 /hpf (0-2)
[2024-03-21 12:30] LABS: Bacteria Mod /hpf; Squamous Epithelial Cells Rare /hpf (Few)
[2024-03-21] MEDS ORDERED: CEPH500 PO (13:57)
[2024-03-21] MEDS ORDERED: ONDA4ODT MM (13:57)
[2024-03-21 14:49] VITALS: BP 136/90
== END 2024-03-21 14:57 | disposition home or self-care (01) ==
LOC: ER 10:32
PROVIDERS: Student in an Organized Health Care Education/Training Program
DX: N30.00 Acute cystitis without hematuria (principal); R11.2 Nausea with vomiting, unspecified; E11.22 Type 2 diabetes mellitus with diabetic chronic kidney disease; N18.30 Chronic kidney disease, stage 3 unspecified; I12.9 Hypertensive chronic kidney disease with stage 1 through stage 4 chronic kidney disease, or unspecified chronic kidney disease; E11.40 Type 2 diabetes mellitus with diabetic neuropathy, unspecified; Z86.73 Personal history of transient ischemic attack (TIA), and cerebral infarction without residual deficits; Z96.0 Presence of urogenital implants; Z79.82 Long term (current) use of aspirin; Z79.899 Other long term (current) drug therapy; Z91.048 Other nonmedicinal substance allergy status; Z88.5 Allergy status to narcotic agent
CPT/HCPCS: 51702; 71045; 80053; 81001; 85025; 85610; 85730; J2405; J7120

== ENCOUNTER → 2024-04-14 | Outpatient (CLI) | payer OTHER ==
[~2024-04-14] MED LIST changes: +BUPR100ER PO; +CEPH500 PO; +FARXIGA10 MG PO; +FARXIGA5 MG PO; +INSULIN AS100 UNIT/8 SC; +LORA10ER PO; +METOPROLOL SUCC25 MG PO; +NEOPOLDEXO RIGHTEYE; +OZEMPIC0.25 MG/02 SC; +POLYMYXIN B-TMP10 ML RIGHTEYE; +POTCHL20ER PO; +PROM12.5S PR; +SEMGLEE (Y100 UNIT/2 SC; +TRIDERM28.4 GM TOP; +TRULICITY0.75 MG/01 SC; +TRULICITY1.5 MG/0.1 SC
[2024-04-14 15:39] LABS: BASOPHILS PERCENT AUTO 1 % (0-2); EOSINOPHILS ABSOLUTE AUTO 0.21 K/mm3 (0.00-0.68); EOSINOPHILS PERCENT AUTO 2 % (0-6); Hematocrit 43.4 % (37.0-53.0); Hemoglobin 14.1 g/dL (13.5-17.5); IMMATURE GRAN ABSOLUTE AUTO 0.52 K/mm3 (0.00-0.10); IMMATURE GRAN PERCENT AUTO 5 % (0-1); LYMPHOCYTES ABSOLUTE AUTO 1.76 K/mm3 (0.84-5.20); LYMPHOCYTES PERCENT AUTO 17 % (21-46); MONOCYTES ABSOLUTE AUTO 0.91 K/mm3 (0.16-1.47); MONOCYTES PERCENT AUTO 9 % (4-13); Mean Corpuscular HGB 27.7 pg (26.0-34.0); Mean Corpuscular HGB Conc 32.5 g/dL (31.5-36.5); Mean Corpuscular Volume 85 fL (80-100); Mean Platelet Volume 10.5 fL (9.1-12.4); NEUTROPHILS ABSOLUTE AUTO 6.87 K/mm3 (1.96-9.15); NEUTROPHILS PERCENT AUTO 66 % (41-73); Platelet Count 352 K/mm3 (150-400); RDW Coefficient Variation 16.1 % (11.7-14.2); RDW Standard Deviation 49.6 fL (35.1-46.3); Red Blood Cell Count 5.09 M/mm3 (4.30-5.90); White Blood Cell Count 10.37 K/mm3 (4.00-11.30)
[2024-04-14 15:56] LABS: Albumin, Blood 3.2 g/dL (3.4-5.0); Albumin/Globulin Ratio 0.7 (0.8-1.8); Bilirubin, Total 0.4 mg/dL (0.1-1.0); Bun/Creatinine Ratio 8.3 (12.0-20.0); Calcium, Blood 8.7 mg/dL (8.5-10.1); Creatinine, Blood 6.97 mg/dL (0.60-1.20); Globulin, Blood 4.4 g/dL (2.2-4.0); Potassium, Blood 3.5 mmol/L (3.5-5.5); Total Protein, Blood 7.6 g/dL (6.4-8.2)
== END ==
LOC: LAB 15:20 → LAB SHORT 15:20
PROVIDERS: Family Medicine
DX: R10.9 Unspecified abdominal pain (principal); N17.9 Acute kidney failure, unspecified; N18.9 Chronic kidney disease, unspecified
CPT/HCPCS: 80053; 83690; 85025

== ENCOUNTER → 2024-04-15 | Outpatient (CLI) | payer OTHER ==
[2024-04-15 12:35] LABS: BASOPHILS ABSOLUTE AUTO 0.05 K/mm3 (0.00-0.23); BASOPHILS PERCENT AUTO 1 % (0-2); EOSINOPHILS ABSOLUTE AUTO 0.19 K/mm3 (0.00-0.68); EOSINOPHILS PERCENT AUTO 2 % (0-6); Hematocrit 41.9 % (37.0-53.0); Hemoglobin 13.5 g/dL (13.5-17.5); IMMATURE GRAN ABSOLUTE AUTO 0.36 K/mm3 (0.00-0.10); IMMATURE GRAN PERCENT AUTO 4 % (0-1); LYMPHOCYTES ABSOLUTE AUTO 1.65 K/mm3 (0.84-5.20); LYMPHOCYTES PERCENT AUTO 19 % (21-46); MONOCYTES ABSOLUTE AUTO 0.72 K/mm3 (0.16-1.47); MONOCYTES PERCENT AUTO 8 % (4-13); Mean Corpuscular HGB 27.9 pg (26.0-34.0); Mean Corpuscular HGB Conc 32.2 g/dL (31.5-36.5); Mean Corpuscular Volume 87 fL (80-100); Mean Platelet Volume 10.7 fL (9.1-12.4); NEUTROPHILS ABSOLUTE AUTO 5.58 K/mm3 (1.96-9.15); NEUTROPHILS PERCENT AUTO 65 % (41-73); Platelet Count 241 K/mm3 (150-400); RDW Coefficient Variation 16.2 % (11.7-14.2); RDW Standard Deviation 50.3 fL (35.1-46.3); Red Blood Cell Count 4.84 M/mm3 (4.30-5.90); White Blood Cell Count 8.55 K/mm3 (4.00-11.30)
[2024-04-15 12:56] LABS: Albumin, Blood 2.8 g/dL (3.4-5.0); Albumin/Globulin Ratio 0.7 (0.8-1.8); Bilirubin, Total 0.3 mg/dL (0.1-1.0); Bun/Creatinine Ratio 8.6 (12.0-20.0); Calcium, Blood 8.2 mg/dL (8.5-10.1); Creatinine, Blood 6.28 mg/dL (0.60-1.20); Potassium, Blood 3.4 mmol/L (3.5-5.5); Thyroid Stimulating Hormone 3.875 uIU/mL (0.360-4.800); Total Protein, Blood 6.8 g/dL (6.4-8.2)
== END ==
LOC: LAB SHORT 12:31 → LAB 12:31
PROVIDERS: Family Medicine
DX: R53.83 Other fatigue (principal); N17.9 Acute kidney failure, unspecified; N18.9 Chronic kidney disease, unspecified
CPT/HCPCS: 80053; 84443; 85025

== ENCOUNTER 2024-04-16 17:40 | Inpatient (IN) | payer OTHER ==
[~2024-04-16] VITALS: Ht 182.9 cm; Wt 101.6 kg
[~2024-04-16 17:40] MED LIST changes: -BUPR100ER PO; -FARXIGA10 MG PO; -FARXIGA5 MG PO; -INSULIN AS100 UNIT/8 SC; -LORA10ER PO; -METOPROLOL SUCC25 MG PO; -NEOPOLDEXO RIGHTEYE; -OZEMPIC0.25 MG/02 SC; -POLYMYXIN B-TMP10 ML RIGHTEYE; -POTCHL20ER PO; -SEMGLEE (Y100 UNIT/2 SC; -TRIDERM28.4 GM TOP; -TRULICITY0.75 MG/01 SC; -TRULICITY1.5 MG/0.1 SC
[2024-04-16] MEDS ORDERED: Ondansetron HCl 2 MG / ML 2ML Vial IV ONE (17:55)
[2024-04-16] MEDS ORDERED: NS 1,000 ML IV SCH (17:55)
[2024-04-16 18:08] LABS: Base Excess Venous -7.2 mmol/L; Bicarbonate Venous 18.5 mmol/L (24.0-30.0); PCO2 Venous 41.6 mmHg (38-42); pH Blood Venous 7.28 (7.34-7.37)
[2024-04-16 18:10] LABS: BASOPHILS ABSOLUTE AUTO 0.07 K/mm3 (0.00-0.23); BASOPHILS PERCENT AUTO 1 % (0-2); EOSINOPHILS ABSOLUTE AUTO 0.19 K/mm3 (0.00-0.68); EOSINOPHILS PERCENT AUTO 2 % (0-6); Hematocrit 42.1 % (37.0-53.0); Hemoglobin 13.5 g/dL (13.5-17.5); IMMATURE GRAN ABSOLUTE AUTO 0.14 K/mm3 (0.00-0.10); IMMATURE GRAN PERCENT AUTO 2 % (0-1); LYMPHOCYTES ABSOLUTE AUTO 1.79 K/mm3 (0.84-5.20); LYMPHOCYTES PERCENT AUTO 23 % (21-46); MONOCYTES ABSOLUTE AUTO 0.55 K/mm3 (0.16-1.47); MONOCYTES PERCENT AUTO 7 % (4-13); Mean Corpuscular HGB 28.3 pg (26.0-34.0); Mean Corpuscular HGB Conc 32.1 g/dL (31.5-36.5); Mean Corpuscular Volume 88 fL (80-100); Mean Platelet Volume 10.3 fL (9.1-12.4); NEUTROPHILS ABSOLUTE AUTO 5.16 K/mm3 (1.96-9.15); NEUTROPHILS PERCENT AUTO 65 % (41-73); Platelet Count 324 K/mm3 (150-400); RDW Coefficient Variation 15.9 % (11.7-14.2); Red Blood Cell Count 4.77 M/mm3 (4.30-5.90)
[2024-04-16 18:36] LABS: Albumin, Blood 2.9 g/dL (3.4-5.0); Albumin/Globulin Ratio 0.7 (0.8-1.8); Bilirubin, Total 0.3 mg/dL (0.1-1.0); Bun/Creatinine Ratio 10.3 (12.0-20.0); Calcium, Blood 7.6 mg/dL (8.5-10.1); Creatinine, Blood 4.35 mg/dL (0.60-1.20); Globulin, Blood 3.9 g/dL (2.2-4.0); Potassium, Blood 3.5 mmol/L (3.5-5.5); Total Protein, Blood 6.8 g/dL (6.4-8.2)
[2024-04-16] MEDS ORDERED: Metoclopramide HCl 5MG / ML 2ML Vial IV ONE (20:25)
[2024-04-16] MEDS ORDERED: Ondansetron HCl 2 MG / ML 2ML Vial IV PRN (23:15)
[2024-04-16] MEDS ORDERED: Acetaminophen 325 MG TABLET PO PRN (23:15)
[2024-04-16] MEDS ORDERED: Sodium Bicarb 8.4% Inj 75 MEQ in Sodium Chloride 0.45% 1,000 ML IV SCH (23:25)
[2024-04-17 06:38] LABS: Bun/Creatinine Ratio 9.6 (12.0-20.0); Calcium, Blood 7.1 mg/dL (8.5-10.1); Creatinine, Blood 4.06 mg/dL (0.60-1.20); Potassium, Blood 2.8 mmol/L (3.5-5.5)
[2024-04-17] MEDS ORDERED: Sodium Bicarb 8.4% Inj 150 MEQ in Dextrose 5% 1,000 ML IV SCH (07:20)
[2024-04-17] MEDS ORDERED: Insulin Human Lispro 100 Units/ML 3ML Syringe SC SCH (07:30)
[2024-04-17] MEDS ORDERED: Heparin Sodium,Porcine 5,000 UNIT/0.5 ML SDV SC SCH (09:00)
[2024-04-17 10:40] VITALS: BP 112/68
--- NOTE | 2024-04-17 15:30 | NUR ---
DISCUSSED PT WITH PRINTING PRESS OPERATOR APPRENTICE. PT REFUSED TO WORK WITH PT. PER PT HE CUTS HIS FOOD INTO VERY SMALL BITES AT HOME AND DRINKS THIN LIQUIDS. PT NOT HERE FOR RESPIRATORY CONDITION. CHANGED DIET TO BITE SIZED FOOD.
--- NOTE | 2024-04-17 16:38 | NUR ---
VSS, denies SOB, A-Ox4 with flat affect, denies any pain, bedbound, denies SOB, states moderate nause with 1x clear 100mL of emisus that was well managed with prn zofran, on RA. Lungs diminished, heart NS on tele, bowel sounds normative, incontent of 1x soft BM, abdomen tender to touch, Base line R-side weakness with paralysis and flacidy to BLE, supapubic cather C/D/I draing clear yellow urine, skin intact. Pt at risk of aspiration, Speech consulted pre order, Pt refused speech, Head of bed 90 when eating or drinking, on soft and bit sized deit, 1-1 feed at times. Pt can make needs known, call viveros in hand, bed lowest postion.
[2024-04-17 17:54] VITALS: BP 126/73
[2024-04-17] MEDS ORDERED: Polyethylene Glycol 3350 17 gm PO PRN (19:40)
[2024-04-17 20:00] VITALS: BP 129/82
[2024-04-17] MEDS ORDERED: Potassium Chloride 20 MEQ TabCR PO SCH (20:00)
[2024-04-17 20:25] LABS: Albumin, Blood 2.5 g/dL (3.4-5.0); Anion Gap 11 mmol/L (3-11); Blood Urea Nitrogen 33 mg/dL (8-24); Bun/Creatinine Ratio 9.8 (12.0-20.0); CO2, Blood 27 mmol/L (21-32); Calcium, Blood 7.1 mg/dL (8.5-10.1); Chloride, Blood 107 mmol/L (98-108); Creatinine, Blood 3.38 mg/dL (0.60-1.20); Glomerular Filtration Rate 21 (60-); Glucose, Blood 128 mg/dL (70-99); Phosphorus, Blood 2.5 mg/dL (2.5-4.9); Sodium, Blood 142 mmol/L (136-145)
[2024-04-17] MEDS ORDERED: Ondansetron HCl 2 MG / ML 2ML Vial IV PRN (20:35)
[2024-04-17] MEDS ORDERED: Ondansetron HCl 2 MG / ML 2ML Vial IV ONE (20:35)
[2024-04-17] MEDS ORDERED: Temazepam 7.5 MG Cap PO ONE (20:40)
[2024-04-18] MEDS ORDERED: LORA10ER PO ×2 (00:13)
[2024-04-18] MEDS ORDERED: POLYMYXIN B-TMP10 ML RIGHTEYE ×2 (00:14)
[2024-04-18] MEDS ORDERED: NEOPOLDEXO RIGHTEYE ×2 (00:17)
[2024-04-18] MEDS ORDERED: TRULICITY1.5 MG/0.1 SC (00:19)
[2024-04-18] MEDS ORDERED: TRIDERM28.4 GM TOP ×2 (00:20)
[2024-04-18] MEDS ORDERED: NITROFURANTOIN5012 PO (00:21)
[2024-04-18] MEDS ORDERED: INSULIN AS100 UNIT/8 SC ×2 (00:22)
[2024-04-18] MEDS ORDERED: FARXIGA5 MG PO ×2 (00:22)
[2024-04-18] MEDS ORDERED: SEMGLEE (Y100 UNIT/2 SC ×2 (00:23)
[2024-04-18] MEDS ORDERED: BUPR100ER PO ×2 (00:23)
[2024-04-18] MEDS ORDERED: METOPROLOL SUCC25 MG PO ×2 (00:24)
[2024-04-18] MEDS ORDERED: FARXIGA10 MG PO ×2 (00:24)
[2024-04-18] MEDS ORDERED: OZEMPIC0.25 MG/02 SC ×2 (00:24)
[2024-04-18] MEDS ORDERED: PLAVIX75 MG PO (00:25)
[2024-04-18] MEDS ORDERED: LIPITOR80 MG PO (00:26)
[2024-04-18] MEDS ORDERED: TRULICITY0.75 MG/01 SC ×2 (00:26)
--- NOTE | 2024-04-18 03:39 | NUR ---
TITLE CLOSER SUMMARY VSS. IVF INFUSING AT 73 - SEE MAR FOR DETAILS. VOICED HADNT HAD ANY SLEEP FOR DAYS AT HS AND REQUESTED SLEEP MED, NOTIFIED AND MED OBTAINED, BUT WHEN MED WAS AVAILABLE, PT WAS ASLEEP AND DIFFICULT TO ARROUSE, MED HELD. HX CVA WITH RIGHT SIDE DEFICEIT. ABLE TO REPOSITION WITH ASSIST. HAS BEEN REPOSITIONED ABOUT EVERY 2 HRS FOR COMFORT AND SKIN MAINTENANCE. SUPRAPUBIC CATH DRAINING. HOB ELEVATED FOR RESP COMFORT. ASPIRATION PRECAUTIONS MAINTAINED WHEN MEDS GIVEN. CALL LIGHT IN REACH, RAILS UP X 2 AND BED IN LOW POSITION FOR SAFETY. VOICED NAUSEA NEAR SHIFT START, NOTIFIED AND ZOFRAN IV ADMIN, MED EFECTIVE HAS BEEN RESTING QUIETLY WITH FEW INTERRUPTOINS SINCE. WILL CONTINUE TO MONITOR
[2024-04-18 04:06] VITALS: BP 128/87
[2024-04-18 06:41] LABS: BASOPHILS ABSOLUTE AUTO 0.03 K/mm3 (0.00-0.23); BASOPHILS PERCENT AUTO 0 % (0-2); EOSINOPHILS ABSOLUTE AUTO 0.14 K/mm3 (0.00-0.68); EOSINOPHILS PERCENT AUTO 2 % (0-6); Hematocrit 34.3 % (37.0-53.0); Hemoglobin 11.1 g/dL (13.5-17.5); IMMATURE GRAN ABSOLUTE AUTO 0.04 K/mm3 (0.00-0.10); IMMATURE GRAN PERCENT AUTO 1 % (0-1); LYMPHOCYTES ABSOLUTE AUTO 1.58 K/mm3 (0.84-5.20); LYMPHOCYTES PERCENT AUTO 23 % (21-46); MONOCYTES ABSOLUTE AUTO 0.44 K/mm3 (0.16-1.47); MONOCYTES PERCENT AUTO 7 % (4-13); Mean Corpuscular HGB 27.3 pg (26.0-34.0); Mean Corpuscular HGB Conc 32.4 g/dL (31.5-36.5); Mean Corpuscular Volume 85 fL (80-100); Mean Platelet Volume 10.2 fL (9.1-12.4); NEUTROPHILS ABSOLUTE AUTO 4.58 K/mm3 (1.96-9.15); NEUTROPHILS PERCENT AUTO 67 % (41-73); Platelet Count 253 K/mm3 (150-400); RDW Coefficient Variation 16.1 % (11.7-14.2); Red Blood Cell Count 4.06 M/mm3 (4.30-5.90); White Blood Cell Count 6.81 K/mm3 (4.00-11.30)
[2024-04-18 07:10] LABS: Albumin, Blood 2.3 g/dL (3.4-5.0); Anion Gap 10 mmol/L (3-11); Blood Urea Nitrogen 29 mg/dL (8-24); Bun/Creatinine Ratio 9.2 (12.0-20.0); CO2, Blood 28 mmol/L (21-32); Calcium, Blood 6.9 mg/dL (8.5-10.1); Chloride, Blood 109 mmol/L (98-108); Creatinine, Blood 3.15 mg/dL (0.60-1.20); Glomerular Filtration Rate 23 (60-); Glucose, Blood 69 mg/dL (70-99); Phosphorus, Blood 2.8 mg/dL (2.5-4.9); Potassium, Blood 2.8 mmol/L (3.5-5.5); Sodium, Blood 144 mmol/L (136-145)
[2024-04-18 07:21] VITALS: BP 139/90
[2024-04-18] MEDS ORDERED: Potassium Chloride 40 MEQ in NS 250 ML IV STA (07:44)
[2024-04-18] MEDS ORDERED: Temazepam 15 MG Cap PO PRN (14:30)
[2024-04-18] MEDS ORDERED: Melatonin 3 MG Tab PO PRN (14:30)
[2024-04-18 15:20] VITALS: BP 132/88
--- NOTE | 2024-04-18 19:09 | NUR ---
SHIFT SUMMARY: PT IS A/O X3, BEDREST, PLEASANT AND COOPERATIVE WITH CARE. PT CONTINUES TO HAVE SODIUM BICARB RUNNING AT 100 ML PER HOUR. PT REPORTED BEING TIRED ALL DAY. CONTINUED TO REQUEST A SLEEP AID AND REMINDED PT HE CAN HAVE SLEEP AID AT BEDTIME. PT SUPRAPUBIC CATHETER PATENT AND DRAINING CLEAR YELLOW URINE. HEELS FLOATED FOR PREVENTION. PT REPOSITIONED Q HOURS FOR PREVENTION.
[2024-04-18 19:26] VITALS: BP 134/91
[2024-04-19 04:19] VITALS: BP 105/74
[2024-04-19] MEDS ORDERED: Lidocaine 4% 1 Patch TOP ONE (05:20)
[2024-04-19 05:57] LABS: Albumin, Blood 2.4 g/dL (3.4-5.0); Anion Gap 10 mmol/L (3-11); Blood Urea Nitrogen 22 mg/dL (8-24); Bun/Creatinine Ratio 7.9 (12.0-20.0); CO2, Blood 31 mmol/L (21-32); Calcium, Blood 6.5 mg/dL (8.5-10.1); Chloride, Blood 104 mmol/L (98-108); Creatinine, Blood 2.78 mg/dL (0.60-1.20); Glomerular Filtration Rate 27 (60-); Glucose, Blood 186 mg/dL (70-99); Phosphorus, Blood 2.2 mg/dL (2.5-4.9); Sodium, Blood 142 mmol/L (136-145)
--- NOTE | 2024-04-19 07:28 | NUR ---
NOC SHIFT SUMMARY NO ACUTE CHANGES OVERNIGHT. PT WOKE UP WITH A KINKED NECK AND I ASKED FOR A LIDOCAINE PATCH FOR HIM. SODIUM BICARB RUNNING. REPOSITIONED EVERY 2 HOURS. PT HAS BEEN REFUSING TO TURN ONTO HIS L SIDE SO WEVE JUST BEEN REPOSITIONING HIM SUPINE TO R SIDE.
[2024-04-19 07:29] VITALS: BP 131/87
[2024-04-19] MEDS ORDERED: NS KCl 20mEq 1,000 ML IV ONE (09:00)
[2024-04-19] MEDS ORDERED: Potassium Chloride 40 MEQ in NS 250 ML IV ONE (12:05)
[2024-04-19 12:35] VITALS: BP 127/83
[2024-04-19 15:12] VITALS: BP 163/88
--- NOTE | 2024-04-19 18:01 | NUR ---
SHIFT SUMMARY: PATIENT A/OX3-4, SLOW AND MUMBLED SPEECH. PATIENT DOES NOT USES CALL LIGHT APPROPRIATELY, YELLS OUT "HELP/NURSE" FOR ASSISTANCE, ENCOURAGE AND EDUCATE PATIENT TO USE THE CALL LIGHT, BUT CONTINUES TO YELLS OUT T/O SHIFT. PATIENT DECLINED PO K CHOLRIDE, NOTIFIED DR. FREGOSO DURING AM ROUNDING, ORDERED OT DOSE K CHLORIDE, INFUSED COMPLETELY AND TOLERATED WELL. PATIENT HAS POOR FOOD INTAKE, DRINKS ICE H20 AND ATE ICE CHIPS T/O THE DAY. PATIENT REPORTS MORRIS/NECK PAIN, APPLIED HEATING PAD TO NECK/BACK AND MEDICATED FOR PAIN PER EMAR c MOD EFFECT. PATIENT DENIES CP/PRESSURE, SOB, N/V AND DIZZINESS. PATIENT ON TELE, SR HR IN THE MID 80'S TO 90'S BPM. PATIENT HAS SUPRAPUBIC CATHETER, PATENT DRAINING CLEAR YELLOW URINE TO GRAVITY. PATIENT HAD ONE LARGE BROWN, FORMED INCONTINENT BM, MAGDIEL CARE AND ATTENDS CHANGED. PATIENT REPOSITIONED c BLE'S ELEVATED ON PILLOWS T/O SHIFT. VITAL SIGNS REVIEWED. BED ALARM ON FOR SAFETY. CALL LIGHT IN REACH.
[2024-04-19 20:27] VITALS: BP 144/99
[2024-04-20 05:14] VITALS: BP 145/98
--- NOTE | 2024-04-20 05:14 | NUR ---
SHIFT SUMMARY: CHEKO IS A&OX4. VSS, NO ACUTE EVENTS OVERNIGHT. PT RESTED QUIETLY WITH HIS EYES CLOSED FREQUENTLY THIS SHIFT. SUPRAPUBIC CATHETER PATENT, DRAINING TO COLLECTION BAG HANGING ABOVE FLOOR. PT REPORTS POOR APPETITE BUT IS TOLERATING ICE CHIPS WELL. PT IS A ONE-TWO PERSON ASSIST FOR TURNING/REPOSITIONING IN BED. ATTENDS IN PLACE. HEELS FLOATED. PT HAS NOT USED THE CALL LIGHT THIS SHIFT BUT HAS YELLED FOR ASSISTANCE WHEN NEEDED. HE IS LYING IN BED WITH THE CALL LIGHT IN REACH. WILL GIVE REPORT TO DAY SHIFT RN.
[2024-04-20 05:23] LABS: Albumin, Blood 2.3 g/dL (3.4-5.0); Anion Gap 10 mmol/L (3-11); Blood Urea Nitrogen 18 mg/dL (8-24); Bun/Creatinine Ratio 7.7 (12.0-20.0); CO2, Blood 30 mmol/L (21-32); Calcium, Blood 6.3 mg/dL (8.5-10.1); Chloride, Blood 106 mmol/L (98-108); Creatinine, Blood 2.33 mg/dL (0.60-1.20); Glomerular Filtration Rate 33 (60-); Glucose, Blood 120 mg/dL (70-99); Phosphorus, Blood 2.3 mg/dL (2.5-4.9); Potassium, Blood 3.4 mmol/L (3.5-5.5); Sodium, Blood 143 mmol/L (136-145)
[2024-04-20 07:39] VITALS: BP 166/107
[2024-04-20] MEDS ORDERED: NS KCl 20mEq 1,000 ML IV SCH (09:00)
[2024-04-20] MEDS ORDERED: AmLODIPine Besylate 5 MG Tab PO SCH (11:00)
[2024-04-20] MEDS ORDERED: Metoprolol Succinate 25 MG TABCR PO SCH (11:00)
[2024-04-20 18:01] VITALS: BP 159/127
--- NOTE | 2024-04-20 18:05 | NUR ---
ALERT AND ORIENTED, PARAPELGIC, SPEECH SLURRED AND SLOW. ABLE TO MAKE NEEDS KNOWN, PATIENT CALLS OUT FOR HELP, ARMS CONTRACTED AND TIGHT, REPOSITIONED EVERY 2 HOURS, 2 PERSON TO REPOSITION, CHONG VISITED AND GRANDKIDS. BS 100-190, COVERED PER SS. LS DIMINSHED, RESPIRATION SHALLOW, INCONTINENT, DR FREGOSO ROUNDED ON PATIENT TODAY, ONE LITER OF NS W 20 KCL INFUSING. NO EVENTS ON TELEMETRY. TYLENOL FOR PAIN. PATIENT REQUESTING SLEEPING AID TONIGHT, CLEARS CONGESTION WITH COUGH, WILL RELAY TO PM BOOGIE
[2024-04-20 20:12] VITALS: BP 120/95
[2024-04-21 04:08] VITALS: BP 115/75
[2024-04-21 06:09] LABS: Albumin, Blood 2.4 g/dL (3.4-5.0); Anion Gap 12 mmol/L (3-11); Blood Urea Nitrogen 14 mg/dL (8-24); Bun/Creatinine Ratio 7.2 (12.0-20.0); CO2, Blood 28 mmol/L (21-32); Calcium, Blood 6.1 mg/dL (8.5-10.1); Chloride, Blood 107 mmol/L (98-108); Creatinine, Blood 1.95 mg/dL (0.60-1.20); Glomerular Filtration Rate 41 (60-); Glucose, Blood 133 mg/dL (70-99); Phosphorus, Blood 2.8 mg/dL (2.5-4.9); Potassium, Blood 3.2 mmol/L (3.5-5.5); Sodium, Blood 144 mmol/L (136-145)
--- NOTE | 2024-04-21 06:43 | NUR ---
SHIFT SUMMARY PT IS A&OX4, PARAPLEGIA. SPEECH IS SLOW AND SLURRED. VSS ON RA. PER TELEMETRY PT IS SR 70-80 BPM. C/O PAIN EVERYWHERE, REFUSED TYLENOL. PT STATES HE CONSUMES THC GUMMIES AT HOME FOR HIS PAIN. TOLERATING A SOFT AND BITE SIZE DIET. TAKES PILLS WHOLE IN APPLESAUCE. SUPRAPUBIC CATHETER DRAINING LIGHT YELLOW URINE TO GRAVITY. PT HAD ONE LARGE SOFT/UNFORMED INCONTINENT BM THIS SHIFT. BRIEF IN PLACE. REPOSITIONED FREQUENTLY. DOES NOT ALWAYS USE HIS CALL LIGHT, HOLLERS OUT FREQUENTLY FOR ASSISTANCE. ABLE TO MAKE NEEDS KNOWN. BED IN LOWEST POSITION, CALL LIGHT WITHIN REACH.
[2024-04-21 07:14] VITALS: BP 119/76
[2024-04-21] MEDS ORDERED: Potassium Chl 20MEQ/Water100ML 100 ML IV STA (10:59)
[2024-04-21] MEDS ORDERED: NS 250 ML IV PRN (11:25)
[2024-04-21] MEDS ORDERED: POTCHL20ER PO ×2 (11:47)
[2024-04-21 15:03] VITALS: BP 132/81
--- NOTE | 2024-04-21 16:31 | NUR ---
VSS, denies SOB, denies any pain, A-Ox4, bedbound baseline, R-side weakness, BLE paraplysised, on RA, NS on tele. Pt D/C at 1630 via ambulanace, D/C instructions given, safety ensured.
== END 2024-04-21 16:28 | disposition home health service (06) | DRG 683 ==
LOC: ER 17:40 → MEDS 23:14 → ER 23:14 → ERHOLD 23:14 → MEDS 04-17 10:34
PROVIDERS: Family Medicine; Internal Medicine Endocrinology, Diabetes & Metabolism; Physician Assistant; ADMIT Internal Medicine
DX: N17.9 Acute kidney failure, unspecified (principal); I69.951 Hemiplegia and hemiparesis following unspecified cerebrovascular disease affecting right dominant side; N18.30 Chronic kidney disease, stage 3 unspecified; K59.09 Other constipation; F32.A Depression, unspecified; E11.22 Type 2 diabetes mellitus with diabetic chronic kidney disease; I12.9 Hypertensive chronic kidney disease with stage 1 through stage 4 chronic kidney disease, or unspecified chronic kidney disease; E87.5 Hyperkalemia; E87.6 Hypokalemia; G47.00 Insomnia, unspecified; E86.0 Dehydration; E11.40 Type 2 diabetes mellitus with diabetic neuropathy, unspecified; N31.9 Neuromuscular dysfunction of bladder, unspecified; Z87.891 Personal history of nicotine dependence; Z88.5 Allergy status to narcotic agent; Z88.8 Allergy status to other drugs, medicaments and biological substances; Z79.82 Long term (current) use of aspirin; Z79.02 Long term (current) use of antithrombotics/antiplatelets; Z79.811 Long term (current) use of aromatase inhibitors; Z79.84 Long term (current) use of oral hypoglycemic drugs
CPT/HCPCS: 36415; 74176; 80048; 80053; 80069; 82306; 82803; 82947; 83690; 83735; 84443; 85025; A9270; J1644; J2405; J2765; J3480; J7030; J7050; J7070

== ENCOUNTER → 2024-04-16 | Outpatient (CLI) | payer OTHER ==
[2024-04-16 16:05] LABS: Albumin, Blood 2.7 g/dL (3.4-5.0); Albumin/Globulin Ratio 0.8 (0.8-1.8); Bilirubin, Total 0.2 mg/dL (0.1-1.0); Calcium, Blood 7.4 mg/dL (8.5-10.1); Creatinine, Blood 5.01 mg/dL (0.60-1.20); Globulin, Blood 3.6 g/dL (2.2-4.0); Magnesium, Blood 1.2 mg/dL (1.6-2.4); Total Protein, Blood 6.3 g/dL (6.4-8.2)
== END ==
LOC: LAB 15:48 → LAB SHORT 15:48
PROVIDERS: Chiropractor
DX: R74.8 Abnormal levels of other serum enzymes (principal)
CPT/HCPCS: 80053; 83690; 83735

== ENCOUNTER → 2024-06-11 | Outpatient (CLI) | payer OTHER ==
[~2024-06-11] MED LIST changes: +BUPR100ER PO; +FARXIGA10 MG PO; +FARXIGA5 MG PO; +INSULIN AS100 UNIT/8 SC; +LORA10ER PO; +METOPROLOL SUCC25 MG PO; +NEOPOLDEXO RIGHTEYE; +OZEMPIC0.25 MG/02 SC; +POLYMYXIN B-TMP10 ML RIGHTEYE; +POTCHL20ER PO; +SEMGLEE (Y100 UNIT/2 SC; +TRIDERM28.4 GM TOP; +TRULICITY0.75 MG/01 SC; +TRULICITY1.5 MG/0.1 SC
[2024-06-11 11:13] LABS: Source, Urine Voided
[2024-06-11 12:39] LABS: Appearance, Urine Cloudy (Clear); Bilirubin, Urine Neg (Neg); Blood, Urine 5+ (Neg); Color, Urine Yellow (P-Yellow); Glucose Qualitative, Urine 2+ (Neg); Ketones, Urine Neg (Neg); Leukocyte Esterase, Urine 3+ (Neg); Nitrite, Urine Pos (Neg); Protein, Urine 3+ (Neg); Specific Gravity, Urine 1.015 (1.003-1.022); Urobilinogen, Urine NORM (Normal)
[2024-06-11 13:20] LABS: Bacteria Many /hpf; Red Blood Cells, Urine 25-50 /hpf (0-2); Squamous Epithelial Cells Rare /hpf (Few); White Blood Cells, Urine TNTC /hpf (0-5)
== END ==
LOC: LAB SHORT 11:11 → LAB 11:11
PROVIDERS: Family Medicine
DX: I12.9 Hypertensive chronic kidney disease with stage 1 through stage 4 chronic kidney disease, or unspecified chronic kidney disease (principal); N18.31 Chronic kidney disease, stage 3a; N39.0 Urinary tract infection, site not specified
CPT/HCPCS: 81001; 87077; 87086; 87186

== ENCOUNTER → 2024-06-12 | Outpatient (CLI) | payer OTHER | LOC: LAB 11:24 → LAB SHORT 11:24 | DX: N39.0 Urinary tract infection, site not specified (principal) | CPT/HCPCS: 87077; 87086; 87147; 87186 ==

== ENCOUNTER → 2024-10-03 | Outpatient (CLI) | payer OTHER ==
[2024-10-03 11:08] LABS: Source, Urine Voided
[2024-10-03 12:18] LABS: Appearance, Urine Hazy (Clear); Bilirubin, Urine Neg (Neg); Blood, Urine 4+ (Neg); Color, Urine Yellow (P-Yellow); Glucose Qualitative, Urine Neg (Neg); Ketones, Urine 2+ (Neg); Leukocyte Esterase, Urine 2+ (Neg); Nitrite, Urine Neg (Neg); Protein, Urine 3+ (Neg); Specific Gravity, Urine 1.025 (1.003-1.022); Urobilinogen, Urine NORM (Normal)
[2024-10-03 12:26] LABS: Bacteria Many /hpf; Squamous Epithelial Cells Few /hpf (Few); White Blood Cells, Urine 25-50 /hpf (0-5)
[2024-10-03 12:27] LABS: Amorphous Light (0-Heavy)
[2024-10-03 14:20] LABS: Microalb/Creat Ratio UR, Rand 803.15 mg/g (0.000-30.000)
== END ==
LOC: LAB SHORT 11:02
PROVIDERS: Hospitalist
DX: I12.9 Hypertensive chronic kidney disease with stage 1 through stage 4 chronic kidney disease, or unspecified chronic kidney disease (principal); E11.22 Type 2 diabetes mellitus with diabetic chronic kidney disease; N18.31 Chronic kidney disease, stage 3a
CPT/HCPCS: 81001; 82043; 82570; 87077; 87086; 87186

== ENCOUNTER → 2024-10-24 | Outpatient (CLI) | payer OTHER ==
[2024-10-24 11:32] LABS: Source, Urine Straight Cath
[2024-10-24 12:48] LABS: Bacteria Many /hpf; Red Blood Cells, Urine 25-50 /hpf (0-2); Renal Epithelial Rare /hpf (0-Rare); Squamous Epithelial Cells Few /hpf (Few); White Blood Cells, Urine 50-100 /hpf (0-5)
[2024-10-24 12:49] LABS: Hyaline Casts 0-2 /lpf (0-2)
== END ==
LOC: LAB SHORT 11:21 → LAB 11:21
PROVIDERS: Family Medicine
DX: R30.0 Dysuria (principal)
CPT/HCPCS: 81015; 87077; 87086; 87186

== ENCOUNTER → 2024-11-25 | Outpatient (CLI) | payer OTHER ==
[2024-11-25 17:17] LABS: Source, Urine Straight Cath
[2024-11-25 18:25] LABS: Appearance, Urine Hazy (Clear); Bilirubin, Urine Neg (Neg); Blood, Urine 4+ (Neg); Color, Urine Yellow (P-Yellow); Glucose Qualitative, Urine Neg (Neg); Ketones, Urine Neg (Neg); Leukocyte Esterase, Urine 3+ (Neg); Nitrite, Urine Neg (Neg); Protein, Urine 3+ (Neg); Urobilinogen, Urine NORM (Normal)
[2024-11-25 18:40] LABS: Bacteria Many /hpf; Squamous Epithelial Cells Rare /hpf (Few)
== END ==
LOC: LAB SHORT 17:14 → LAB 17:14
PROVIDERS: Family Medicine
DX: N39.0 Urinary tract infection, site not specified (principal); Z87.440 Personal history of urinary (tract) infections
CPT/HCPCS: 81001; 87077; 87086; 87186

== ENCOUNTER → 2025-05-08 | Outpatient (CLI) | payer OTHER ==
[2025-05-08 15:21] LABS: Source, Urine Voided
[2025-05-08 16:35] LABS: Bilirubin, Urine Neg (Neg); Glucose Qualitative, Urine 4+ (Neg); Ketones, Urine Neg (Neg); Leukocyte Esterase, Urine 1+ (Neg); Protein, Urine 3+ (Neg); Specific Gravity, Urine 1.010 (1.003-1.022); Urobilinogen, Urine NORM (Normal)
[2025-05-08 16:56] LABS: Color, Urine Pale Yellow (P-Yellow)
[2025-05-08 16:57] LABS: Red Blood Cells, Urine 25-50 /hpf (0-2)
== END ==
LOC: LAB 15:19 → LAB SHORT 15:19
PROVIDERS: Family Medicine
DX: R30.0 Dysuria (principal)
CPT/HCPCS: 81001; 87077; 87086; 87186